=== PATIENT | male | born 1930 | race Caucasian/White ===

== ENCOUNTER 2016-11-06 22:53 | Emergency (ER) | payer OTHER ==
[2016-11-06 23:35] LABS: HEMATOCRIT 35.8 % (37.9-51.0); HEMOGLOBIN 12.1 g/dL (13.5-17.0); HGB HCT DIFFERENCE 0.5; MEAN CORPUSCULAR HEMOGLOBIN 34.9 pg (27.0-33.4); MEAN CORPUSCULAR HGB CONC 33.9 g/dL (32.0-36.0); MEAN CORPUSCULAR VOLUME 103 fl (80-97); RED BLOOD COUNT 3.48 10^6/uL (4.35-5.55); WHITE BLOOD COUNT 11.4 10^3/uL (4.0-10.5)
[2016-11-06 23:45] LABS: ALANINE AMINOTRANSFERASE 21 U/L (21-72); ALKALINE PHOSPHATASE 64 U/L (38-126); ANION GAP 14 (5-19); ASPARTATE AMINO TRANSFERASE 15 U/L (17-59); BILIRUBIN,TOTAL 0.4 mg/dL (0.2-1.3); BLOOD UREA NITROGEN 25 mg/dL (7-20); CALCIUM 9.4 mg/dL (8.4-10.2); CARBON DIOXIDE 26 mmol/L (22-30); CHLORIDE 103 mmol/L (98-107); CREATININE RESULT 1.58 mg/dL (0.52-1.25); GLUCOSE 155 mg/dL (75-110); POTASSIUM 4.5 mmol/L (3.6-5.0); SODIUM 142.6 mmol/L (137-145); TOTAL PROTEIN 6.6 g/dL (6.3-8.2)
[2016-11-06 23:49] LABS: BAND NEUTROPHILS % (MANUAL) 1 % (3-5); BASOPHILS % (MANUAL) 1 % (0-2); EOSINOPHILS % (MANUAL) 0 % (0-6); LYMPHOCYTES % (MANUAL) 3 % (13-45); TOTAL CELLS COUNTED 100
[2016-11-06 23:50] LABS: ANISOCYTOSIS 1+
[2016-11-07] MEDS ORDERED: NORMAL SALINE 1000 ML 500 ML IV ONE (00:30)
--- NOTE | 2016-11-07 00:33 | ER Document Report ---
ED General - General Chief Complaint: Near Syncope Stated Complaint: FALL, WEAKNESS Notes: Patient is an 86-year-old male with past medical history of hypertension and frequent falls who presents after being generally weak and having to be helped to the ground when attempting to stand up after going to the bathroom. Family could not get him off the floor so EMS was contacted. Patient states that he has had a dry, nonproductive cough for the past several days. His has the same symptoms. Patient states that he does not eat or drink much today and sat in his chair most of the day. When he got up out of the chair to try to ambulatory to the restroom, states he felt very weak diffusely but was able to the bathroom. However when he went to stand up again after urinating, he was unable to completely stand up and did fall to the ground with the assistance of his . He did not sustain any injury while doing this. He denies any symptoms at time of my evaluation. No chest pain, shortness of breath, focal weakness or numbness. He has a history of support episodes in the past. He has not seen his primary care doctor regarding today's concerns. Nothing is noted to improve or worsen his symptoms. - Related Data Allergies/Adverse Reactions: acetaminophen [From Percocet] Allergy (Verified 07/06/13 09:50) bumetanide [From Bumex] Allergy (Verified 10/18/10 11:02) ivermectin [Ivermectin] Allergy (Verified 07/06/13 09:50) oxycodone HCl [From Percocet] Allergy (Verified 07/06/13 09:50) valsartan [From Diovan] Allergy (Verified 10/18/10 11:02) Past Medical History - General Information source: Patient - Social History Smoking Status: Former Smoker Frequency of alcohol use: None Drug Abuse: None Lives with: Spouse/Significant other Family History: Reviewed & Not Pertinent - Past Medical History Cardiac Medical History: Reports: Hx Atrial Fibrillation, Hx Hypercholesterolemia Pulmonary Medical History: Reports: Hx COPD, Hx Pneumonia Endocrine Medical History: Reports: Hx Diabetes Mellitus Type 2 Malignancy Medical History: Reports Hx Skin Cancer GI Medical History: Reports: Hx Gastroesophageal Reflux Disease Musculoskeltal Medical History: Reports Hx Arthritis Skin Medical History: Denies Hx MRSA Psychiatric Medical History: Reports: Hx Depression Infectious Medical History: Reports: Hx MRSA - Pneumonia in 2010 Past Surgical History: Reports: Hx Orthopedic Surgery - Left knee prosthesis 1995, right knee prosthesis x2 since 1999. Cataract - Immunizations Hx Pneumococcal Vaccination: 08/19/05 Review of Systems - Review of Systems Notes: Constitutional: Negative for fever. HENT: Negative for sore throat. Eyes: Negative for visual changes. Cardiovascular: Negative for chest pain. Respiratory: Negative for shortness of breath. Gastrointestinal: Negative for abdominal pain, vomiting or diarrhea. Genitourinary: Negative for dysuria. Musculoskeletal: Negative for back pain. Skin: Negative for rash. Neurological: Negative for headaches, weakness or numbness. 10 point ROS negative except as marked above and in HPI. Physical Exam - Vital signs Vitals: Resp Pulse Ox 19 94 11/06/16 23:14 11/06/16 23:14 Interpretation: Normal Notes: PHYSICAL EXAMINATION: GENERAL: Well-appearing, well-nourished and in no acute distress. HEAD: Atraumatic, normocephalic. EYES: Pupils equal round and reactive to light, extraocular movements intact, sclera anicteric, conjunctiva are normal. ENT: nares patent, oropharynx clear without exudates. Moderately dry mucous membranes. NECK: Normal range of motion, supple without lymphadenopathy LUNGS: Breath sounds clear to auscultation bilaterally and equal. No wheezes rales or rhonchi. HEART: Regular tachycardia without murmurs ABDOMEN: Soft, nontender, normoactive bowel sounds. No guarding, no rebound. No masses appreciated. EXTREMITIES: Normal range of motion, no pitting or edema. No cyanosis. NEUROLOGICAL: No focal neurological deficits. Moves all extremities spontaneously and on command. PSYCH: Normal mood, normal affect. SKIN: Warm, Dry, normal turgor, no rashes or lesions noted. Course - Re-evaluation Re-evalutation: 11/07/16 00:32 Presentation and an overall well-appearing patient in no acute distress who complains of generalized weakness that did cause a fall without associated trauma just prior to arrival. Specifically patient did not hit his head or neck during the fall was gently helped to the ground. At time of evaluation, patient's vitals are within normal limits with exception of mild tachycardia rate 103. They are denying any additional acute complaints. Physical examination without focal findings. No neurologic deficits. They deny any chest pain, shortness of breath, nausea, vomiting, or diarrhea. No dysuria or fever. Basic laboratories are unremarkable (anemia improved from prior, cr at baseline). Low clinical suspicion for ACS, occult pneumonia, acute intra- abdominal pathology, stroke, or transient ischemic attack based on clinical history, examination, and laboratories. They have tolerated oral intake without difficulty. I have discussed the importance of close outpatient follow- up as well as the need to return to emergency room immediately should they have any new or worsening symptoms. The patient and surrogate's are in agreement with this plan and verbalized indications for return to emergency department. - Vital Signs Vital signs: Temp Pulse Resp BP Pulse Ox 100.3 F 16 126/67 H 93 11/06/16 23:19 11/07/16 01:01 11/07/16 01:01 11/07/16 01:01 - Laboratory Result Diagrams: 11/06/16 23:17 11/06/16 23:17 Laboratory results interpreted by me: 11/06/16 11/06/16 11/06/16 23:17 23:17 23:17 WBC 11.4 H RBC 3.48 L Hgb 12.1 L Hct 35.8 L MCV 103 H MCH 34.9 H RDW 16.0 H Seg Neuts % (Manual) 84 H Band Neutrophils % 1 L Lymphocytes % (Manual) 3 L Abs Neuts (Manual) 9.7 H Abs Lymphs (Manual) 0.3 L BUN 25 H Creatinine 1.58 H Est GFR ( Amer) 51 L Est GFR (Non-Af Amer) 42 L Glucose 155 H Lactic Acid 2.3 H AST 15 L - Diagnostic Test Radiology reviewed: Image reviewed, Reports reviewed - EKG Interpretation by Me Additional EKG results interpreted by me: 11/07/16 00:35 Normal sinus rhythm. Rate 95. No ST elevations or depressions. Right bundle branch block. Left anterior fascicle block. Unchanged from prior. QTC is 478. Discharge - Discharge Clinical Impression: Generalized weakness Fall Qualifiers: Encounter type: initial encounter Qualified Code(s): W19.XXXA - Unspecified fall, initial encounter Condition: Good Disposition: HOME, SELF-CARE Additional Instructions: Your laboratories today here are at your baseline. Your chest x-ray is normal and does not show pneumonia. Please follow-up with your primary care doctor regarding today's episode within the next 1-2 days. Please return to the emergency room immediately if you experience any concerning symptoms including high fevers, severe headache, chest pain, difficulty breathing, abdominal pain, slurred speech, numbness or weakness in your arms or legs, or any other symptom that concerns you. Referrals: SHAILA LOPEZ MD [Primary Care Provider] - Follow up tomorrow
[2016-11-07 01:18] VITALS: BP 126/67
--- NOTE | 2016-11-07 08:30 | EKG REPORT ---
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
== END 2016-11-07 01:57 | disposition home or self-care (01) ==
LOC: ER 22:53
DX: R53.1 Weakness (principal); R55 Syncope and collapse; W19.XXXA Unspecified fall, initial encounter; I10 Essential (primary) hypertension; Z91.81 History of falling; Z87.891 Personal history of nicotine dependence
CPT/HCPCS: 93005; 99284; 36415; 87040; 85025; 85610; 80053; 83605; 71010; 93010; J7030

== ENCOUNTER 2016-11-07 04:13 | Inpatient (IN) | payer OTHER, MEDICARE ==
[2016-11-07] MEDS ORDERED: LIDOCAINE 1%/EPINEPHRINE INJ 20 ML VIAL INJ ONE (05:17)
--- NOTE | 2016-11-07 06:33 | ER Document Report ---
ED General - General Chief Complaint: Fall Injury Stated Complaint: FALL,HEAD LACERATION Mode of Arrival: Medic Information source: Patient, H Records Notes: 86 yr old male presents with complaints of weakness since yesterday. Patient notes that he was here earlier last night, after being unable to stand from a sitting position she is normally able to do, patient felt lightheaded and weak, his attempted to help him move at which point he fell. Patient had difficulty standing up Patient returns today after another fall, stating he was weak again with his walker TRAVEL OUTSIDE OF THE [place] IN LAST 30 DAYS: No - HPI Onset: Just prior to arrival Onset/Duration: Sudden Quality of pain: No pain Severity: Mild Pain Level: Denies Associated symptoms: Weakness Exacerbated by: Denies Relieved by: Denies Similar symptoms previously: Yes Recently seen / treated by doctor: Yes - Related Data Allergies/Adverse Reactions: acetaminophen [From Percocet] Allergy (Verified 07/06/13 09:50) bumetanide [From Bumex] Allergy (Verified 10/18/10 11:02) ivermectin [Ivermectin] Allergy (Verified 07/06/13 09:50) oxycodone HCl [From Percocet] Allergy (Verified 07/06/13 09:50) valsartan [From Diovan] Allergy (Verified 10/18/10 11:02) Home Medications: Current Home Medications Bupropion HCl [Wellbutrin Xl 300mg 24hr Tablet] 300 mg PO DAILY 11/07/16 [ History] Calcium Carbonate/Vitamin D3 [Calcium 500 mg Chewable Tablet] 1 tab PO BID 11/07 [History] Colchicine [Mitigare] 0.6 mg PO DAILY 11/07/16 [History] Gabapentin [Gabapentin] 100 mg PO QPM 11/07/16 [History] Metformin HCl [Metformin HCl] 1,000 mg PO Q12H 11/07/16 [History] Psyllium Husk (with Sugar) [Metamucil Packet] 3.4 gm PO DAILY 11/07/16 [History] Past Medical History - Social History Smoking Status: Never Smoker Cigarette use (# per day): No Chew tobacco use (# tins/day): No Smoking Education Provided: No Frequency of alcohol use: None Drug Abuse: None Family History: Reviewed & Not Pertinent Patient has suicidal ideation: No Patient has homicidal ideation: No - Past Medical History Cardiac Medical History: Reports: Hx Atrial Fibrillation, Hx Hypercholesterolemia Pulmonary Medical History: Reports: Hx COPD, Hx Pneumonia Endocrine Medical History: Reports: Hx Diabetes Mellitus Type 2 Renal/ Medical History: Denies: Hx Peritoneal Dialysis Malignancy Medical History: Reports Hx Skin Cancer GI Medical History: Reports: Hx Gastroesophageal Reflux Disease Musculoskeltal Medical History: Reports Hx Arthritis Skin Medical History: Denies Hx MRSA Psychiatric Medical History: Reports: Hx Depression Infectious Medical History: Reports: Hx MRSA - Pneumonia in 2010 Past Surgical History: Reports: Hx Orthopedic Surgery - Left knee prosthesis 1995, right knee prosthesis x2 since 1999. Cataract - Immunizations Hx Pneumococcal Vaccination: 08/19/05 Review of Systems - Review of Systems Notes: REVIEW OF SYSTEMS: CONSTITUTIONAL : Denies fever, chills, or sweats. Denies recent illness. EENT: Denies eye, ear, throat, or mouth pain or symptoms. Denies nasal or sinus congestion or discharge. Denies throat, tongue, or mouth swelling or difficulty swallowing. CARDIOVASCULAR: Denies chest pain. Denies palpitations or racing or irregular heart beat. Denies ankle edema. RESPIRATORY: Denies cough, cold, or chest congestion. Denies shortness of breath, difficulty breathing, or wheezing. GASTROINTESTINAL: Denies abdominal pain or distention. Denies nausea, vomiting , or diarrhea. Denies blood in vomitus, stools, or per rectum. Denies black, tarry stools. Denies constipation. GENITOURINARY: Denies difficulty urinating, painful urination, burning, frequency, blood in urine, or discharge. MUSCULOSKELETAL: Denies back or neck pain or stiffness. Denies joint pain or swelling. SKIN: Admits to laceration scalp HEMATOLOGIC : Denies easy bruising or bleeding. LYMPHATIC: Denies swollen, enlarged glands. NEUROLOGICAL: Admits to weakness PSYCHIATRIC: Denies anxiety or stress. Denies depression, suicidal ideation, or homicidal ideation. ALL OTHER SYSTEMS REVIEWED AND NEGATIVE. Dictation was performed using [employer] voice recognition software PHYSICAL EXAMINATION: GENERAL: Well-appearing, well-nourished and in no acute distress. HEAD: Left occipital laceration noted EYES: Pupils equal round and reactive to light, extraocular movements intact, sclera anicteric, conjunctiva are normal. ENT: Nares patent, oropharynx clear without exudates. Moist mucous membranes. NECK: Normal range of motion, supple without lymphadenopathy LUNGS: Breath sounds clear to auscultation bilaterally and equal. No wheezes rales or rhonchi. HEART: Regular rate and rhythm without murmurs ABDOMEN: Soft, nontender, nondistended abdomen. No guarding, no rebound. No masses appreciated. Musculoskeletal: Normal range of motion, no pitting or edema. No cyanosis. NEUROLOGICAL: Cranial nerves grossly intact. Normal speech, generalized weakness PSYCH: Normal mood, normal affect. SKIN: Y-shaped laceration measuring 2 cm left scalp Physical Exam - Vital signs Vitals: Temp Pulse Resp BP Pulse Ox 99.4 F 97 18 122/96 H 96 11/07/16 04:21 11/07/16 04:21 11/07/16 04:21 11/07/16 04:21 11/07/16 04:21 Course - Re-evaluation Re-evalutation: 11/07/16 06:36 On review of previous labs it is noted patient had an elevated lactic acidosis, given patient's weakness BP lab work has been ordered and I expect admission for the patient 11/07/16 08:22 dr Alva scott 11/07/16 08:53 Dr Tuttle will admit for tele obs - Vital Signs Vital signs: Temp Pulse Resp BP Pulse Ox 99.4 F 97 18 122/96 H 96 11/07/16 04:21 11/07/16 04:21 11/07/16 04:21 11/07/16 04:21 11/07/16 04:21 - Laboratory Result Diagrams: 11/07/16 06:40 11/07/16 06:40 Laboratory results interpreted by me: 11/07/16 11/07/16 11/07/16 06:40 06:40 07:03 WBC 11.2 H RBC 3.48 L Hgb 12.0 L Hct 35.5 L MCV 102 H MCH 34.3 H RDW 16.4 H Seg Neuts % (Manual) 87 H Lymphocytes % (Manual) 3 L Abs Neuts (Manual) 9.7 H Abs Lymphs (Manual) 0.3 L BUN 25 H Creatinine 1.44 H Est GFR ( Amer) 56 L Est GFR (Non-Af Amer) 47 L Glucose 124 H AST 15 L ALT 20 L Total Protein 6.1 L Urine Protein 30 H Urine Blood LARGE H Urine Ascorbic Acid 20 H - Diagnostic Test Radiology reviewed: Image reviewed, Reports reviewed - EKG Interpretation by Me EKG shows normal: Sinus rhythm, [place], Intervals, QRS Complexes Discharge - Discharge Clinical Impression: Generalized weakness Fall Qualifiers: Encounter type: initial encounter Qualified Code(s): W19.XXXA - Unspecified fall, initial encounter Condition: Stable Disposition: ADMITTED OBSERVATION Admitting Provider: Hospitalist Unit Admitted: Telemetry Referrals: SHAILA LOPEZ MD [Primary Care Provider] - Follow up as needed
[2016-11-07] MEDS ORDERED: NORMAL SALINE 1000 ML 1,000 ML IV ONE (06:35)
[2016-11-07 07:08] LABS: HEMATOCRIT 35.5 % (37.9-51.0); HGB HCT DIFFERENCE 0.5; MEAN CORPUSCULAR HEMOGLOBIN 34.3 pg (27.0-33.4); MEAN CORPUSCULAR HGB CONC 33.7 g/dL (32.0-36.0); MEAN CORPUSCULAR VOLUME 102 fl (80-97); RED BLOOD COUNT 3.48 10^6/uL (4.35-5.55); RED CELL DISTRIBUTION WIDTH 16.4 % (11.5-14.0); WHITE BLOOD COUNT 11.2 10^3/uL (4.0-10.5)
[2016-11-07 07:26] LABS: ALANINE AMINOTRANSFERASE 20 U/L (21-72); ALBUMIN 3.7 g/dL (3.5-5.0); ALKALINE PHOSPHATASE 62 U/L (38-126); ANION GAP 13 (5-19); ASPARTATE AMINO TRANSFERASE 15 U/L (17-59); BILIRUBIN,DIRECT 0.1 mg/dL (0.0-0.4); BILIRUBIN,TOTAL 0.7 mg/dL (0.2-1.3); BLOOD UREA NITROGEN 25 mg/dL (7-20); CALCIUM 8.8 mg/dL (8.4-10.2); CARBON DIOXIDE 25 mmol/L (22-30); CHLORIDE 104 mmol/L (98-107); CREATINE KINASE 142 U/L (55-170); CREATININE RESULT 1.44 mg/dL (0.52-1.25); GLUCOSE 124 mg/dL (75-110); POTASSIUM 4.4 mmol/L (3.6-5.0); SODIUM 141.8 mmol/L (137-145); TOTAL PROTEIN 6.1 g/dL (6.3-8.2)
[2016-11-07 07:37] LABS: BASOPHILS % (MANUAL) 0 % (0-2); CREATINE KINASE MB 2.15 ng/mL (<4.55); EOSINOPHILS % (MANUAL) 1 % (0-6); LYMPHOCYTES % (MANUAL) 3 % (13-45); TOTAL CELLS COUNTED 100; TROPONIN I 0.032 ng/mL
[2016-11-07 07:38] LABS: ANISOCYTOSIS 1+; OVALOCYTES 1+; POIKILOCYTOSIS 1+; POLYCHROMASIA SLIGHT; SCHISTOCYTES SLIGHT
[2016-11-07 08:19] LABS: APPEARANCE,URINE CLEAR; BILIRUBIN,URINE NEGATIVE (NEGATIVE); GLUCOSE, URINE NEGATIVE (NEGATIVE); KETONES,URINE NEGATIVE (NEGATIVE); LEUKOCYTE ESTERASE,URINE NEGATIVE (NEGATIVE); NITRITE,URINE NEGATIVE (NEGATIVE); PROTEIN,URINE 30 mg/dL (NEGATIVE); URINE SPECIFIC GRAVITY 1.019; UROBILINOGEN,URINE NEGATIVE mg/dL (<2.0)
[2016-11-07] MEDS ORDERED: CEFTRIAXONE 1 GM/D5W RTU 50 ML IV ONE (08:53)
[2016-11-07] MEDS ORDERED: ONDANSETRON HCL INJ/PF 4 MG/2 ML SDV IV PRN (09:14)
[2016-11-07] MEDS ORDERED: DEXTROSE 50%-WATER 25 GM/50 ML DISP.SYRIN IV PRN ×2 (09:17)
[2016-11-07] MEDS ORDERED: DEXTROSE 40% GEL 15 GM TUBE PO PRN ×2 (09:17)
[2016-11-07] MEDS ORDERED: GLUCAGON,HUMAN RECOMB 1 MG INJ IM PRN (09:17)
[2016-11-07] MEDS ORDERED: INSULIN LISPRO 100 UNIT/ML 3 ML VIAL SUBCUT PRN (09:17)
[2016-11-07] MEDS ORDERED: CALCIUM CARBONATE PO SCH (10:00)
[2016-11-07] MEDS ORDERED: COLCHICINE 0.6 MG PO SCH (10:00)
[2016-11-07] MEDS ORDERED: [UNRECOGNIZED DRUG - OTHER] PO SCH (10:00)
[2016-11-07] MEDS ORDERED: VITAMIN D3 PO SCH (10:00)
[2016-11-07] MEDS ORDERED: (PENDING PHARMACY ID) (Psyllium Husk (With Sugar) [Metamucil Packet] 3.4 GM) PO SCH (10:00)
[2016-11-07 10:55] LABS: FREE T3 3.5 pg/mL (2.77-5.27)
[2016-11-07 11:09] LABS: THYROID STIMULATING HORMONE 1.33 uIU/mL (0.47-4.68)
[2016-11-07] MEDS: BUPROPION HCL 75 MG TABLET PO SCH ×2 (11:10→21:13)
[2016-11-07] MEDS: CYANOCOBALAMIN (VITAMIN B-12) 1,000 MCG TABLET PO SCH (11:10)
[2016-11-07] MEDS: PREDNISONE 10 MG TABLET PO SCH (11:11)
[2016-11-07] MEDS: COLCHICINE 0.6 MG TABLET PO SCH (11:11)
[2016-11-07] MEDS: PSYLLIUM SEED-SF 5.85 GM PACKET PO SCH ×2 (11:12)
[2016-11-07] MEDS: RIVAROXABAN 15 MG TABLET PO SCH (11:15)
[2016-11-07] MEDS: CALCIUM CARBONATE 250 MG/VITAMIN D3 125 UNIT TABLET PO SCH (11:15)
[2016-11-07] MEDS ORDERED: OSELTAMIVIR PHOSPHATE 75 MG CAPSULE PO ONE (15:00)
--- NOTE | 2016-11-07 17:01 | PDOC H&P ---
History of Present Illness Admission Date/PCP: 11/07/16 09:14 SHAILA LOPEZ MD Patient complains of: Fever History of Present Illness: MATTEO RAIN is a 86 year old male with past medical history of myasthenia gravis on immunosuppressive medications, CK 83, obstructive sleep apnea on CPAP , hypertension, A. fib presents to the emergency department with 2 day history of cough, sore throat, generalized weakness, fevers. He was treated and released from the emergency department yesterday for similar symptoms with no specific diagnosis. Past Medical History Cardiac Medical History: Reports: Atrial Fibrillation, Hyperlipidema Pulmonary Medical History: Reports: Chronic Obstructive Pulmonary Disease (COPD) , Pneumonia, Sleep Apnea Neurological Medical History: Reports: Other - Myasthenia gravis Endocrine Medical History: Reports: Diabetes Mellitus Type 2 Malignancy Medical History: Reports: Skin Cancer GI Medical History: Reports: Gastroesophageal Reflux Disease Musculoskeltal Medical History: Reports: Arthritis Psychiatric Medical History: Reports: Depression Infectious Medical History: Reports: Methicillin-Resistant Staph Aureus - Pneumonia in 2010 Past Surgical History Past Surgical History: Reports: Orthopedic Surgery - Left knee prosthesis 1995, right knee prosthesis x2 since 1999. Cataract Social History Smoking Status: Never Smoker Frequency of Alcohol Use: None Hx Recreational Drug Use: No Hx Prescription Drug Abuse: No - Advance Directive Resuscitation Status: Full Code Family History Family History: Other - both parents of "old age" Parental Family History Reviewed: Yes Children Family History Reviewed: Yes Sibling(s) Family History Reviewed.: Yes Medication/Allergy Home Medications: Antiox#10/Om3/Dha/Epa/Lut/Zeax [I-Caps with Lutein-[place] 3 Sfg] 1 cap PO BID Azathioprine [Imuran 50 mg Tablet] 150 mg PO DAILY 07/06/13 Biotin [Nail-Ex 2500 mcg Tablet] 1 tab PO DAILY 07/06/13 Cyanocobalamin (Vitamin B-12) [Vitamin B-12] 1,000 mcg PO DAILY 07/06/13 Prednisone 15 mg PO Q2D 07/06/13 Rivaroxaban [Xarelto 15 mg Tablet] 15 mg PO DAILY 07/06/13 Bupropion HCl [Wellbutrin Xl 300mg 24hr Tablet] 300 mg PO DAILY 11/07/16 Calcium Carbonate/Vitamin D3 [Calcium 500 mg Chewable Tablet] 1 tab PO BID 11/07 Colchicine [Mitigare] 0.6 mg PO DAILY 11/07/16 Gabapentin [Gabapentin] 100 mg PO QPM 11/07/16 Metformin HCl [Metformin HCl] 1,000 mg PO Q12H 11/07/16 Psyllium Husk (with Sugar) [Metamucil Packet] 3.4 gm PO DAILY 11/07/16 Allergies/Adverse Reactions: acetaminophen [From Percocet] Allergy (Verified 07/06/13 09:50) bumetanide [From Bumex] Allergy (Verified 10/18/10 11:02) ivermectin [Ivermectin] Allergy (Verified 07/06/13 09:50) oxycodone HCl [From Percocet] Allergy (Verified 07/06/13 09:50) valsartan [From Diovan] Allergy (Verified 10/18/10 11:02) Review of Systems Constitutional: PRESENT: fatigue, fever(s), weakness. ABSENT: chills, headache( s), weight gain, weight loss Eyes: ABSENT: visual disturbances Ears: ABSENT: hearing changes Nose, Mouth, and Throat: PRESENT: sore throat Cardiovascular: ABSENT: chest pain, dyspnea on exertion, edema, orthropnea, palpitations Respiratory: PRESENT: cough. ABSENT: hemoptysis Gastrointestinal: ABSENT: abdominal pain, constipation, diarrhea, hematemesis, hematochezia, nausea, vomiting Genitourinary: PRESENT: difficulty urinating, other - Urinary frequency. ABSENT : dysuria, hematuria Musculoskeletal: ABSENT: joint swelling Integumentary: ABSENT: rash, wounds Neurological: ABSENT: abnormal gait, abnormal speech, confusion, dizziness, focal weakness, syncope Psychiatric: ABSENT: anxiety, depression, homidical ideation, suicidal ideation Endocrine: ABSENT: cold intolerance, heat intolerance, polydipsia, polyuria Hematologic/Lymphatic: ABSENT: easy bleeding, easy bruising Physical Exam Vital Signs: Temp Pulse Resp BP Pulse Ox 99.4 F 97 18 122/96 H 96 11/07/16 04:21 11/07/16 04:21 11/07/16 04:21 11/07/16 04:21 11/07/16 04:21 PHYSICAL EXAM: GENERAL: Appears well, no acute distress HEENT: Normocephalic, no scleral icterus, conjunctiva clear, EOEM intact, PERRLA , moist mucous membranes, erythema of posterior oropharynx with no exudate NECK: trachea midline, no thyromegally RESPIRATORY: Clear to auscultation, no wheezes/rhonchi CARDIAC: Regular rate and rhythm, no murmur/buck/rub ABDOMEN: Soft, no distension, no tenderness, no guarding, normal bowel sounds, negative Nayak sign RECTAL: deferred : deferred EXTREMITIES: No edema, cyanosis, clubbing MUSCULOSKELETAL: No joint swelling or deformity VASCULAR: normal peripheral pulses NEUROLOGIC: Alert, oriented to person/place/time, normal speech, cranial nerves grossly intact, 5/5 strength in all extremities, tactile sensation intact in all extremities SKIN: No rash, no wounds, no worrisome skin lesions PSYCHIATRIC: Normal mood, normal affect Results Laboratory Results: Labs- All tests 24 hr 11/07/16 11/07/16 11/07/16 06:40 06:40 06:40 WBC 11.2 H RBC 3.48 L Hgb 12.0 L Hct 35.5 L MCV 102 H MCH 34.3 H MCHC 33.7 RDW 16.4 H Plt Count 160 Total Counted 100 Seg Neutrophils % Not Reportable Seg Neuts % (Manual) 87 H Lymphocytes % Not Reportable Lymphocytes % (Manual) 3 L Monocytes % Not Reportable Monocytes % (Manual) 9 Eosinophils % Not Reportable Eosinophils % (Manual) 1 Basophils % Not Reportable Basophils % (Manual) 0 Absolute Neutrophils Not Reportable Abs Neuts (Manual) 9.7 H Absolute Lymphocytes Not Reportable Abs Lymphs (Manual) 0.3 L Absolute Monocytes Not Reportable Abs Monocytes (Manual) 1.0 Absolute Eosinophils Not Reportable Absolute Eos (Manual) 0.1 Absolute Basophils Not Reportable Abs Basophils (Manual) 0.0 Platelet Comment ADEQUATE Polychromasia SLIGHT Poikilocytosis 1+ Anisocytosis 1+ Macrocytosis 1+ Ovalocytes 1+ Schistocytes SLIGHT Sodium 141.8 Potassium 4.4 Chloride 104 Carbon Dioxide 25 Anion Gap 13 BUN 25 H Creatinine 1.44 H Est GFR ( Amer) 56 L Est GFR (Non-Af Amer) 47 L Glucose 124 H Lactic Acid Calcium 8.8 Total Bilirubin 0.7 Direct Bilirubin 0.1 Indirect Bilirubin Not Reportable Neonat Total Bilirubin Not Reportable AST 15 L ALT 20 L Alkaline Phosphatase 62 Creatine Kinase 142 CK-MB (CK-2) 2.15 Troponin I 0.032 Total Protein 6.1 L Albumin 3.7 Prostate Specific Ag TSH Free T4 Free T3 pg/mL Urine Color Urine Appearance Urine pH Ur Specific [place] Urine Protein Urine Glucose (UA) Urine Ketones Urine Blood Urine Nitrite Urine Bilirubin Urine Urobilinogen Ur Leukocyte Esterase Urine WBC (Auto) Urine RBC (Auto) Urine Mucus (Auto) Urine Ascorbic Acid Influenza A (Rapid) Influenza B (Rapid) Group A Strep Rapid 11/07/16 11/07/16 11/07/16 06:40 06:40 06:40 WBC RBC Hgb Hct MCV MCH MCHC RDW Plt Count Total Counted Seg Neutrophils % Seg Neuts % (Manual) Lymphocytes % Lymphocytes % (Manual) Monocytes % Monocytes % (Manual) Eosinophils % Eosinophils % (Manual) Basophils % Basophils % (Manual) Absolute Neutrophils Abs Neuts (Manual) Absolute Lymphocytes Abs Lymphs (Manual) Absolute Monocytes Abs Monocytes (Manual) Absolute Eosinophils Absolute Eos (Manual) Absolute Basophils Abs Basophils (Manual) Platelet Comment Polychromasia Poikilocytosis Anisocytosis Macrocytosis Ovalocytes Schistocytes Sodium Potassium Chloride Carbon Dioxide Anion Gap BUN Creatinine Est GFR ( Amer) Est GFR (Non-Af Amer) Glucose Lactic Acid 1.4 Calcium Total Bilirubin Direct Bilirubin Indirect Bilirubin Neonat Total Bilirubin AST ALT Alkaline Phosphatase Creatine Kinase CK-MB (CK-2) Troponin I Total Protein Albumin Prostate Specific Ag 6.810 H TSH 1.33 Free T4 0.72 L Free T3 pg/mL 3.50 Urine Color Urine Appearance Urine pH Ur Specific [place] Urine Protein Urine Glucose (UA) Urine Ketones Urine Blood Urine Nitrite Urine Bilirubin Urine Urobilinogen Ur Leukocyte Esterase Urine WBC (Auto) Urine RBC (Auto) Urine Mucus (Auto) Urine Ascorbic Acid Influenza A (Rapid) Influenza B (Rapid) Group A Strep Rapid 11/07/16 11/07/16 11/07/16 07:03 09:50 09:50 WBC RBC Hgb Hct MCV MCH MCHC RDW Plt Count Total Counted Seg Neutrophils % Seg Neuts % (Manual) Lymphocytes % Lymphocytes % (Manual) Monocytes % Monocytes % (Manual) Eosinophils % Eosinophils % (Manual) Basophils % Basophils % (Manual) Absolute Neutrophils Abs Neuts (Manual) Absolute Lymphocytes Abs Lymphs (Manual) Absolute Monocytes Abs Monocytes (Manual) Absolute Eosinophils Absolute Eos (Manual) Absolute Basophils Abs Basophils (Manual) Platelet Comment Polychromasia Poikilocytosis Anisocytosis Macrocytosis Ovalocytes Schistocytes Sodium Potassium Chloride Carbon Dioxide Anion Gap BUN Creatinine Est GFR ( Amer) Est GFR (Non-Af Amer) Glucose Lactic Acid Calcium Total Bilirubin Direct Bilirubin Indirect Bilirubin Neonat Total Bilirubin AST ALT Alkaline Phosphatase Creatine Kinase CK-MB (CK-2) Troponin I Total Protein Albumin Prostate Specific Ag TSH Free T4 Free T3 pg/mL Urine Color YELLOW Urine Appearance CLEAR Urine pH 5.0 Ur Specific [place] 1.019 Urine Protein 30 H Urine Glucose (UA) NEGATIVE Urine Ketones NEGATIVE Urine Blood LARGE H Urine Nitrite NEGATIVE Urine Bilirubin NEGATIVE Urine Urobilinogen NEGATIVE Ur Leukocyte Esterase NEGATIVE Urine WBC (Auto) 35 Urine RBC (Auto) 84 Urine Mucus (Auto) RARE Urine Ascorbic Acid 20 H Influenza A (Rapid) POSITIVE Influenza B (Rapid) NEGATIVE Group A Strep Rapid NEGATIVE Impressions: Head CT 11/07/16 05:08 IMPRESSION: CHRONIC CHANGES OF ATROPHY AND MICROVASCULAR ISCHEMIA. OLD LACUNAR INFARCTS. NO ACUTE PROCESS. Assessment & Plan - Diagnosis (1) Systemic inflammatory response syndrome (SIRS) Is this a current diagnosis for this admission?: YesPlan: Likely secondary to influenza and possible urinary tract infection. Elevated lactic acid level may be related to this, or maybe related to metformin administration in the setting of chronic kidney disease as well. (2) Influenza Is this a current diagnosis for this admission?: YesPlan: Start patient on Tamiflu. (3) Myasthenia gravis Is this a current diagnosis for this admission?: YesPlan: Hold Imuran for now secondary to infection. Continue prednisone. Patient is followed by a neurologist at [facility] by the name of Dr. Cherelle Orlando. (4) Abnormal urinalysis Is this a current diagnosis for this admission?: YesPlan: Continue Rocephin initiated in the emergency department pending urine culture. (5) Lactic acidosis Is this a current diagnosis for this admission?: YesPlan: Likely secondary to infection and metformin administration the setting of chronic kidney disease. (6) Hematuria Is this a current diagnosis for this admission?: YesPlan: PSA is slightly elevated and given patient's other urinary symptoms he would benefit from outpatient urology evaluation. Xarelto administration contributing as well. (7) A-fib Is this a current diagnosis for this admission?: YesPlan: Continue Xarelto for stroke prevention. Patient does not take any routine medication for heart rate control. Heart rate is stable at this time. (8) Diabetes Is this a current diagnosis for this admission?: YesPlan: Hold metformin secondary to lactic acidosis and chronic kidney disease. Sliding scale insulin coverage. (9) Chronic kidney disease, stage III (moderate) Is this a current diagnosis for this admission?: YesPlan: Hold metformin. (10) Generalized weakness Is this a current diagnosis for this admission?: YesPlan: Physical therapy to evaluate. - Time Time Spent: Greater than 70 Minutes Anticipated discharge: Home Within: within 48 hours
[2016-11-07] MEDS: GABAPENTIN 100 MG CAPSULE PO SCH (19:05)
[2016-11-08] MEDS ORDERED: OSELTAMIVIR PHOSPHATE 75 MG CAPSULE ONE (04:24)
[2016-11-08 05:06] LABS: HEMATOCRIT 34.2 % (37.9-51.0); HEMOGLOBIN 11.5 g/dL (13.5-17.0); HGB HCT DIFFERENCE 0.3; MEAN CORPUSCULAR HEMOGLOBIN 34.3 pg (27.0-33.4); MEAN CORPUSCULAR HGB CONC 33.7 g/dL (32.0-36.0); MEAN CORPUSCULAR VOLUME 102 fl (80-97); RED BLOOD COUNT 3.36 10^6/uL (4.35-5.55); RED CELL DISTRIBUTION WIDTH 15.9 % (11.5-14.0); WHITE BLOOD COUNT 12.4 10^3/uL (4.0-10.5)
[2016-11-08 05:13] LABS: ANION GAP 13 (5-19); BLOOD UREA NITROGEN 20 mg/dL (7-20); CALCIUM 8.9 mg/dL (8.4-10.2); CARBON DIOXIDE 22 mmol/L (22-30); CHLORIDE 106 mmol/L (98-107); CREATININE RESULT 1.36 mg/dL (0.52-1.25); GLUCOSE 104 mg/dL (75-110); MAGNESIUM 1.8 mg/dL (1.6-2.3); POTASSIUM 4.1 mmol/L (3.6-5.0); SODIUM 141.1 mmol/L (137-145)
[2016-11-08] MEDS: BENZOCAINE/MENTHOL SORE THROAT LOZENGE BUCCAL PRN ×2 (05:17→10:34)
[2016-11-08] MEDS: OSELTAMIVIR PHOSPHATE 75 MG CAPSULE PO SCH ×2 (05:17→18:54)
[2016-11-08 06:32] LABS: BASOPHILS % (MANUAL) 0 % (0-2); EOSINOPHILS % (MANUAL) 0 % (0-6); LYMPHOCYTES % (MANUAL) 6 % (13-45); TOTAL CELLS COUNTED 100
[2016-11-08 06:33] LABS: ANISOCYTOSIS SLIGHT; OVALOCYTES SLIGHT; TOXIC GRANULATION SLIGHT
[2016-11-08] MEDS ORDERED: CEFTRIAXONE 1 GM/D5W RTU 1 GM/50 ML RTUPB IV SCH (08:00)
[2016-11-08] MEDS: PSYLLIUM SEED-SF 5.85 GM PACKET PO SCH ×2 (10:06)
[2016-11-08] MEDS: CALCIUM CARBONATE 250 MG/VITAMIN D3 125 UNIT TABLET PO SCH (10:06)
[2016-11-08] MEDS: COLCHICINE 0.6 MG TABLET PO SCH (10:07)
[2016-11-08] MEDS: BUPROPION HCL 75 MG TABLET PO SCH ×2 (10:08→22:02)
[2016-11-08] MEDS: PREDNISONE 10 MG TABLET PO SCH (10:08)
[2016-11-08] MEDS: CYANOCOBALAMIN (VITAMIN B-12) 1,000 MCG TABLET PO SCH (10:08)
[2016-11-08] MEDS: RIVAROXABAN 15 MG TABLET PO SCH (10:09)
--- NOTE | 2016-11-08 11:55 | PDOC PROGRESS REPORT ---
Subjective Progress Note for:: 11/08/16 Subjective:: Patient feels generally worse today. He's had increased productive cough and shortness of breath. Patient denies chills, headache, new focal weakness, chest pain, abdominal pain, nausea, vomiting, diarrhea, constipation. Physical Exam Vital Signs: Temp Pulse Resp BP Pulse Ox 99.9 F 67 18 169/76 H 94 11/08/16 07:20 11/08/16 07:20 11/08/16 07:20 11/08/16 07:20 11/08/16 07:20 Intake & Output 11/07/16 11/08/16 11/09/16 06:59 06:59 06:59 Intake Total 455 Output Total 175 Balance 280 Weight 83.8 kg GENERAL: No acute distress, ill appearing HEENT: Conjunctiva clear, nonicteric, moist mucous membranes, no JVD, midline trachea RESPIRATORY: Bilateral rhonchi throughout all lung field CARDIAC: Regular rate and rhythm, no murmurs/gallops/rubs ABDOMEN: Soft, nondistended, nontender, positive bowel sounds, no rebound, no guarding EXTREMETIES: No edema, cyanosis, clubbing NEUROLOGIC: Alert, oriented to person/place/time, CN's grossly intact, no focal deficits SKIN: No rash, wounds PSYCH: Normal mood, normal affect Results Laboratory Results: 11/08/16 03:52 11/08/16 03:52 11/08/16 11/08/16 03:52 03:52 WBC 12.4 H RBC 3.36 L Hgb 11.5 L Hct 34.2 L MCV 102 H MCH 34.3 H MCHC 33.7 RDW 15.9 H Plt Count 133 L Seg Neutrophils % Not Reportable Lymphocytes % Not Reportable Monocytes % Not Reportable Eosinophils % Not Reportable Basophils % Not Reportable Absolute Neutrophils Not Reportable Absolute Lymphocytes Not Reportable Absolute Monocytes Not Reportable Absolute Eosinophils Not Reportable Absolute Basophils Not Reportable Sodium 141.1 Potassium 4.1 Chloride 106 Carbon Dioxide 22 Anion Gap 13 BUN 20 Creatinine 1.36 H Est GFR ( Amer) > 60 Est GFR (Non-Af Amer) 50 L Glucose 104 Calcium 8.9 Magnesium 1.8 Impressions: Head CT 11/07/16 05:08 IMPRESSION: CHRONIC CHANGES OF ATROPHY AND MICROVASCULAR ISCHEMIA. OLD LACUNAR INFARCTS. NO ACUTE PROCESS. Assessment & Plan - Diagnosis (1) Systemic inflammatory response syndrome (SIRS) Is this a current diagnosis for this admission?: YesPlan: Secondary to influenza and pneumonia. (2) Pneumonia Qualifiers: Pneumonia type: due to unspecified organism Laterality: bilateral Lung location: unspecified part of lung Qualified Code(s): J18.9 - Pneumonia, unspecified organism Is this a current diagnosis for this admission?: YesPlan: Patient has pneumonia based on clinical findings. I will repeat chest x-ray as this was not appreciated on initial chest x-ray from 11/06/2016. I think given the fact the patient is on immunosuppression and the fact that he has had clinical decompensation over the past 24 hours we should escalate his antibiotic coverage. I will discontinue IV Rocephin. Start IV cefepime, IV Levaquin, IV vancomycin. Check sputum culture. (3) Influenza Is this a current diagnosis for this admission?: YesPlan: Continue Tamiflu. (4) Myasthenia gravis Is this a current diagnosis for this admission?: YesPlan: Hold Imuran for now secondary to infection. Continue prednisone. Patient is followed by a neurologist at [facility] by the name of Dr. Cherelle Orlando. (5) Abnormal urinalysis Is this a current diagnosis for this admission?: YesPlan: Urine culture negative. (6) Lactic acidosis Is this a current diagnosis for this admission?: YesPlan: Likely secondary to metformin administration of the setting of chronic kidney disease, as well as acute infection. (7) Hematuria Is this a current diagnosis for this admission?: YesPlan: PSA is slightly elevated and given patient's other urinary symptoms he would benefit from outpatient urology evaluation. Xarelto administration contributing as well. (8) A-fib Is this a current diagnosis for this admission?: YesPlan: Continue Xarelto for stroke prevention. Patient does not take any routine medication for heart rate control. Heart rate is stable at this time. (9) Diabetes Is this a current diagnosis for this admission?: YesPlan: Hold metformin secondary to lactic acidosis and chronic kidney disease. Sliding scale insulin coverage. (10) Chronic kidney disease, stage III (moderate) Is this a current diagnosis for this admission?: YesPlan: Hold metformin. (11) Generalized weakness Is this a current diagnosis for this admission?: YesPlan: Physical therapy to evaluate. - Time Time Spent with patient: 35 or more minutes
[2016-11-08] MEDS ORDERED: CEFEPIME 1 GM/D5W RTU 50 ML IV SCH (12:00)
[2016-11-08] MEDS ORDERED: VANCOMYCIN HCL 0 MG in DEXTROSE 5%-WATER 250 ML IV NR (12:00)
[2016-11-08] MEDS ORDERED: GUAIFENESIN 600 MG TABLET.SA PO ONE (14:00)
[2016-11-08] MEDS ORDERED: LEVOFLOXACIN 750 MG/D5W RTU 750 MG/150 ML RTUPB IV ONE (14:00)
[2016-11-08] MEDS: CEFEPIME 1 GM/D5W RTU 1 GM/50 ML RTUPB IV SCH (15:37)
[2016-11-08] MEDS: GABAPENTIN 100 MG CAPSULE PO SCH (18:53)
[2016-11-08] MEDS: VANCOMYCIN HCL 1,250 MG in DEXTROSE 5%-WATER 250 ML IV SCH (18:54)
[2016-11-08] MEDS: GUAIFENESIN 600 MG TABLET.SA PO SCH (22:02)
[2016-11-09 05:30] LABS: HEMATOCRIT 37.5 % (37.9-51.0); HEMOGLOBIN 12.7 g/dL (13.5-17.0); HGB HCT DIFFERENCE 0.6; MEAN CORPUSCULAR HEMOGLOBIN 34.1 pg (27.0-33.4); MEAN CORPUSCULAR VOLUME 100 fl (80-97); RED BLOOD COUNT 3.74 10^6/uL (4.35-5.55); RED CELL DISTRIBUTION WIDTH 15.7 % (11.5-14.0); WHITE BLOOD COUNT 11.5 10^3/uL (4.0-10.5)
[2016-11-09 05:34] LABS: ANION GAP 13 (5-19); BLOOD UREA NITROGEN 26 mg/dL (7-20); CALCIUM 9.3 mg/dL (8.4-10.2); CARBON DIOXIDE 22 mmol/L (22-30); CHLORIDE 101 mmol/L (98-107); CREATININE RESULT 1.43 mg/dL (0.52-1.25); GLUCOSE 131 mg/dL (75-110); POTASSIUM 4.9 mmol/L (3.6-5.0); SODIUM 136.3 mmol/L (137-145)
[2016-11-09] MEDS: OSELTAMIVIR PHOSPHATE 75 MG CAPSULE PO SCH ×2 (05:44→17:56)
[2016-11-09 06:04] LABS: BAND NEUTROPHILS % (MANUAL) 5 % (3-5); BASOPHILS % (MANUAL) 0 % (0-2); EOSINOPHILS % (MANUAL) 0 % (0-6); LYMPHOCYTES % (MANUAL) 5 % (13-45); TOTAL CELLS COUNTED 100
[2016-11-09 06:06] LABS: ANISOCYTOSIS SLIGHT; POLYCHROMASIA SLIGHT; TOXIC GRANULATION SLIGHT; TOXIC VACUOLATION PRESENT
[2016-11-09] MEDS: GUAIFENESIN 600 MG TABLET.SA PO SCH ×2 (09:59→21:44)
[2016-11-09] MEDS: PREDNISONE 10 MG TABLET PO SCH (09:59)
[2016-11-09] MEDS: COLCHICINE 0.6 MG TABLET PO SCH (09:59)
[2016-11-09] MEDS: CALCIUM CARBONATE 250 MG/VITAMIN D3 125 UNIT TABLET PO SCH (10:00)
[2016-11-09] MEDS: CYANOCOBALAMIN (VITAMIN B-12) 1,000 MCG TABLET PO SCH (10:00)
[2016-11-09] MEDS: BUPROPION HCL 75 MG TABLET PO SCH ×2 (10:01→21:45)
[2016-11-09] MEDS: RIVAROXABAN 15 MG TABLET PO SCH (10:02)
[2016-11-09] MEDS: PSYLLIUM SEED-SF 5.85 GM PACKET PO SCH ×2 (10:02)
[2016-11-09] MEDS: CEFEPIME 1 GM/D5W RTU 1 GM/50 ML RTUPB IV SCH (15:26)
[2016-11-09] MEDS: GABAPENTIN 100 MG CAPSULE PO SCH (17:56)
[2016-11-09] MEDS: VANCOMYCIN HCL 1,250 MG in DEXTROSE 5%-WATER 250 ML IV SCH (17:56)
--- NOTE | 2016-11-09 22:06 | PDOC PROGRESS REPORT ---
Subjective Progress Note for:: 11/09/16 Subjective:: Patient feels generally better today. Decreased shortness of breath. Sitting in bedside chair. Patient denies chills, headache, new focal weakness, chest pain, abdominal pain, nausea, vomiting, diarrhea, constipation. Physical Exam Vital Signs: Temp Pulse Resp BP Pulse Ox 97.7 F 91 18 111/59 L 98 11/09/16 20:09 11/09/16 20:09 11/09/16 20:09 11/09/16 20:09 11/09/16 20:09 Intake & Output 11/08/16 11/09/16 11/10/16 06:59 06:59 06:59 Intake Total 559 534 7524 Output Total 175 825 Balance 280 -252 2172 Weight 83.8 kg 82.1 kg GENERAL: No acute distress HEENT: Conjunctiva clear, nonicteric, moist mucous membranes, no JVD, midline trachea RESPIRATORY: Bilateral rhonchi throughout all lung field CARDIAC: Regular rate and rhythm, no murmurs/gallops/rubs ABDOMEN: Soft, nondistended, nontender, positive bowel sounds, no rebound, no guarding EXTREMETIES: No edema, cyanosis, clubbing NEUROLOGIC: Alert, oriented to person/place/time, CN's grossly intact, no focal deficits SKIN: No rash, wounds PSYCH: Normal mood, normal affect Results Laboratory Results: 11/09/16 04:14 11/09/16 04:14 11/09/16 11/09/16 04:14 04:14 WBC 11.5 H RBC 3.74 L Hgb 12.7 L Hct 37.5 L MCV 100 H MCH 34.1 H MCHC 34.0 RDW 15.7 H Plt Count 141 L Seg Neutrophils % Not Reportable Lymphocytes % Not Reportable Monocytes % Not Reportable Eosinophils % Not Reportable Basophils % Not Reportable Absolute Neutrophils Not Reportable Absolute Lymphocytes Not Reportable Absolute Monocytes Not Reportable Absolute Eosinophils Not Reportable Absolute Basophils Not Reportable Sodium 136.3 L Potassium 4.9 Chloride 101 Carbon Dioxide 22 Anion Gap 13 BUN 26 H Creatinine 1.43 H Est GFR ( Amer) 57 L Est GFR (Non-Af Amer) 47 L Glucose 131 H Calcium 9.3 11/07/16 09:45 Throat Throat Culture - Final NORMAL PORTER Impressions: Head CT 11/07/16 05:08 IMPRESSION: CHRONIC CHANGES OF ATROPHY AND MICROVASCULAR ISCHEMIA. OLD LACUNAR INFARCTS. NO ACUTE PROCESS. Chest X-Ray 11/08/16 11:47 IMPRESSION: Right perihilar infiltrate consistent with pneumonia. Assessment & Plan - Diagnosis (1) Systemic inflammatory response syndrome (SIRS) Is this a current diagnosis for this admission?: YesPlan: Secondary to influenza and pneumonia. (2) Pneumonia Qualifiers: Pneumonia type: due to unspecified organism Laterality: bilateral Lung location: unspecified part of lung Qualified Code(s): J18.9 - Pneumonia, unspecified organism Is this a current diagnosis for this admission?: YesPlan: Patient has right perihilar pneumonia. Continue IV cefepime, IV Levaquin, IV vancomycin pending sputum culture. BC growing Gram + cocci. (3) Influenza Is this a current diagnosis for this admission?: YesPlan: Continue Tamiflu. (4) Myasthenia gravis Is this a current diagnosis for this admission?: YesPlan: Hold Imuran for now secondary to infection. Continue prednisone. Patient is followed by a neurologist at [facility] by the name of Dr. Cherelle Orlando. (5) Abnormal urinalysis Is this a current diagnosis for this admission?: YesPlan: Urine culture negative. (6) Lactic acidosis Is this a current diagnosis for this admission?: YesPlan: Likely secondary to metformin administration of the setting of chronic kidney disease, as well as acute infection. (7) Hematuria Is this a current diagnosis for this admission?: YesPlan: PSA is slightly elevated and given patient's other urinary symptoms he would benefit from outpatient urology evaluation. Xarelto administration contributing as well. (8) A-fib Is this a current diagnosis for this admission?: YesPlan: Continue Xarelto for stroke prevention. Patient does not take any routine medication for heart rate control. Heart rate is stable at this time. (9) Diabetes Is this a current diagnosis for this admission?: YesPlan: Hold metformin secondary to lactic acidosis and chronic kidney disease. Sliding scale insulin coverage. (10) Chronic kidney disease, stage III (moderate) Is this a current diagnosis for this admission?: YesPlan: Hold metformin. (11) Generalized weakness Is this a current diagnosis for this admission?: YesPlan: Physical therapy to evaluate. - Time Time Spent with patient: 35 or more minutes Anticipated discharge: Home with Homehealth Within: within 72 hours
[2016-11-10] MEDS: OSELTAMIVIR PHOSPHATE 75 MG CAPSULE PO SCH ×2 (05:36→19:41)
[2016-11-10 06:56] LABS: ANION GAP 17 (5-19); BLOOD UREA NITROGEN 41 mg/dL (7-20); CALCIUM 9.2 mg/dL (8.4-10.2); CARBON DIOXIDE 22 mmol/L (22-30); CHLORIDE 102 mmol/L (98-107); CREATININE RESULT 1.79 mg/dL (0.52-1.25); GLUCOSE 118 mg/dL (75-110); SODIUM 140.6 mmol/L (137-145)
[2016-11-10 07:07] LABS: HEMATOCRIT 36.7 % (37.9-51.0); HEMOGLOBIN 12.4 g/dL (13.5-17.0); HGB HCT DIFFERENCE 0.5; MEAN CORPUSCULAR HGB CONC 33.7 g/dL (32.0-36.0); MEAN CORPUSCULAR VOLUME 101 fl (80-97); RED BLOOD COUNT 3.64 10^6/uL (4.35-5.55); WHITE BLOOD COUNT 11.1 10^3/uL (4.0-10.5)
[2016-11-10 07:31] LABS: BAND NEUTROPHILS % (MANUAL) 3 % (3-5); BASOPHILS % (MANUAL) 0 % (0-2); EOSINOPHILS % (MANUAL) 3 % (0-6); LYMPHOCYTES % (MANUAL) 8 % (13-45); TOTAL CELLS COUNTED 100
[2016-11-10 07:35] LABS: ANISOCYTOSIS 1+; OVALOCYTES 1+; POIKILOCYTOSIS 1+
[2016-11-10] MEDS ORDERED: LEVOFLOXACIN 750 MG/D5W RTU 750 MG/150 ML RTUPB IV SCH (10:00)
[2016-11-10] MEDS: RIVAROXABAN 15 MG TABLET PO SCH (10:38)
[2016-11-10] MEDS: PSYLLIUM SEED-SF 5.85 GM PACKET PO SCH ×2 (10:38)
[2016-11-10] MEDS: CALCIUM CARBONATE 250 MG/VITAMIN D3 125 UNIT TABLET PO SCH (10:41)
[2016-11-10] MEDS: PREDNISONE 10 MG TABLET PO SCH (10:41)
[2016-11-10] MEDS: CYANOCOBALAMIN (VITAMIN B-12) 1,000 MCG TABLET PO SCH (10:41)
[2016-11-10] MEDS: COLCHICINE 0.6 MG TABLET PO SCH (10:41)
[2016-11-10] MEDS: GUAIFENESIN 600 MG TABLET.SA PO SCH ×2 (10:42→22:21)
[2016-11-10] MEDS: BUPROPION HCL 75 MG TABLET PO SCH ×2 (10:42→22:21)
[2016-11-10] MEDS: CEFEPIME 1 GM/D5W RTU 1 GM/50 ML RTUPB IV SCH (15:19)
[2016-11-10] MEDS: VANCOMYCIN HCL 1,250 MG in DEXTROSE 5%-WATER 250 ML IV SCH (19:40)
[2016-11-10] MEDS: GABAPENTIN 100 MG CAPSULE PO SCH (19:41)
--- NOTE | 2016-11-10 19:49 | PDOC PROGRESS REPORT ---
Subjective Progress Note for:: 11/10/16 Subjective:: Overall he feels he has improved today. He no longer feels the severe malaise. He denies fever sweats or chills. However he is still producing purulent phlegm. Physical Exam Vital Signs: Temp Pulse Resp BP Pulse Ox 97.6 F 93 17 124/66 95 11/10/16 15:59 11/10/16 15:59 11/10/16 15:59 11/10/16 15:59 11/10/16 15:59 Intake & Output 11/09/16 11/10/16 11/11/16 06:59 06:59 06:59 Intake Total 573 2378 Output Total 825 350 Balance -252 8 Weight 82.1 kg 82.1 kg Additional comments: GENERAL: No acute distress HEENT: Conjunctiva clear, nonicteric, moist mucous membranes, no JVD, midline trachea RESPIRATORY: Bilateral rhonchi throughout all lung field CARDIAC: Regular rate and rhythm, no murmurs/gallops/rubs ABDOMEN: Soft, nondistended, nontender, positive bowel sounds, no rebound, no guarding EXTREMETIES: No edema, cyanosis, clubbing NEUROLOGIC: Alert, oriented to person/place/time, CN's grossly intact, no focal deficits SKIN: No rash, wounds PSYCH: Normal mood, normal affect Results Laboratory Results: 11/10/16 05:21 11/10/16 05:21 11/10/16 11/10/16 05:21 05:21 WBC 11.1 H RBC 3.64 L Hgb 12.4 L Hct 36.7 L MCV 101 H MCH 34.0 H MCHC 33.7 RDW 16.0 H Plt Count 146 L Seg Neutrophils % Not Reportable Lymphocytes % Not Reportable Monocytes % Not Reportable Eosinophils % Not Reportable Basophils % Not Reportable Absolute Neutrophils Not Reportable Absolute Lymphocytes Not Reportable Absolute Monocytes Not Reportable Absolute Eosinophils Not Reportable Absolute Basophils Not Reportable Sodium 140.6 Potassium 4.0 Chloride 102 Carbon Dioxide 22 Anion Gap 17 BUN 41 H Creatinine 1.79 H Est GFR ( Amer) 44 L Est GFR (Non-Af Amer) 36 L Glucose 118 H Calcium 9.2 Impressions: Head CT 11/07/16 05:08 IMPRESSION: CHRONIC CHANGES OF ATROPHY AND MICROVASCULAR ISCHEMIA. OLD LACUNAR INFARCTS. NO ACUTE PROCESS. Chest X-Ray 11/08/16 11:47 IMPRESSION: Right perihilar infiltrate consistent with pneumonia. Assessment & Plan - Diagnosis (1) Systemic inflammatory response syndrome (SIRS) Is this a current diagnosis for this admission?: YesPlan: The systemic nature of this illness has resolved. (2) Pneumonia Qualifiers: Pneumonia type: due to unspecified organism Laterality: bilateral Lung location: unspecified part of lung Qualified Code(s): J18.9 - Pneumonia, unspecified organism Is this a current diagnosis for this admission?: YesPlan: We'll continue current antibiotics. Of note, one of 2 blood cultures drawn on 11/07/2016 is growing a micrococcus species, likely a contaminant. (3) Influenza Is this a current diagnosis for this admission?: YesPlan: Continue Tamiflu. (4) Myasthenia gravis Is this a current diagnosis for this admission?: YesPlan: Holding Imuran while his pneumonia is under treatment. Continuing low dose prednisone. He follows with neurologist Dr. Cherelle Orlando at [facility]. (5) Lactic acidosis Is this a current diagnosis for this admission?: YesPlan: This is felt to be due to metformin which has been discontinued. (6) A-fib Is this a current diagnosis for this admission?: YesPlan: The rate has remained stable without specific Rx. He remains on Xarelto for stroke prevention. (7) Diabetes Is this a current diagnosis for this admission?: YesPlan: Continue monitoring and sliding scale coverage. (8) Chronic kidney disease, stage III (moderate) Is this a current diagnosis for this admission?: Yes (9) Generalized weakness Is this a current diagnosis for this admission?: YesPlan: PT eval/Rx.
[2016-11-11] MEDS: OSELTAMIVIR PHOSPHATE 75 MG CAPSULE PO SCH ×2 (06:37→18:05)
[2016-11-11] MEDS: PSYLLIUM SEED-SF 5.85 GM PACKET PO SCH ×2 (10:05)
[2016-11-11] MEDS: PREDNISONE 10 MG TABLET PO SCH (10:07)
[2016-11-11] MEDS: GUAIFENESIN 600 MG TABLET.SA PO SCH ×2 (10:08→22:49)
[2016-11-11] MEDS: CALCIUM CARBONATE 250 MG/VITAMIN D3 125 UNIT TABLET PO SCH (10:10)
[2016-11-11] MEDS: CYANOCOBALAMIN (VITAMIN B-12) 1,000 MCG TABLET PO SCH (10:11)
[2016-11-11] MEDS: COLCHICINE 0.6 MG TABLET PO SCH (10:11)
[2016-11-11] MEDS: RIVAROXABAN 15 MG TABLET PO SCH (10:12)
[2016-11-11] MEDS: BUPROPION HCL 75 MG TABLET PO SCH ×2 (10:12→22:49)
--- NOTE | 2016-11-11 13:17 | PDOC PROGRESS REPORT ---
Subjective Progress Note for:: 11/11/16 Subjective:: He continues to feel progressively better. He denies fever sweats or chills. He continues to produce purulent phlegm, but less so. Physical Exam Vital Signs: Temp Pulse Resp BP Pulse Ox 97.3 F 97 21 H 139/61 H 98 11/11/16 08:34 11/11/16 08:34 11/11/16 08:34 11/11/16 08:34 11/11/16 08:34 Intake & Output 11/10/16 11/11/16 11/12/16 06:59 06:59 06:59 Intake Total 2378 1210 Output Total 350 725 Balance 2027 485 Weight 82.1 kg 82.1 kg Additional comments: GENERAL: No acute distress HEENT: Conjunctiva clear, nonicteric, moist mucous membranes, no JVD, midline trachea RESPIRATORY: Bilateral rhonchi throughout all lung field CARDIAC: Regular rate and rhythm, no murmurs/gallops/rubs ABDOMEN: Soft, nondistended, nontender, positive bowel sounds, no rebound, no guarding EXTREMETIES: No edema, cyanosis, clubbing NEUROLOGIC: Alert, oriented to person/place/time, CN's grossly intact, no focal deficits SKIN: No rash, wounds PSYCH: Normal mood, normal affect Results Laboratory Results: 11/10/16 05:21 11/10/16 05:21 11/08/16 22:05 Sputum Gram Stain - Final 11/08/16 22:05 Sputum Sputum Culture - Final NORMAL PORTER Impressions: Head CT 11/07/16 05:08 IMPRESSION: CHRONIC CHANGES OF ATROPHY AND MICROVASCULAR ISCHEMIA. OLD LACUNAR INFARCTS. NO ACUTE PROCESS. Chest X-Ray 11/08/16 11:47 IMPRESSION: Right perihilar infiltrate consistent with pneumonia. Assessment & Plan - Diagnosis (1) Systemic inflammatory response syndrome (SIRS) Is this a current diagnosis for this admission?: YesPlan: Systemic symptoms have resolved. (2) Pneumonia Qualifiers: Pneumonia type: due to unspecified organism Laterality: bilateral Lung location: unspecified part of lung Qualified Code(s): J18.9 - Pneumonia, unspecified organism Is this a current diagnosis for this admission?: YesPlan: The patient feels better but is still producing significant to have purulent phlegm. Chest x-ray of 11/08/2016 showed the right perihilar infiltrate. The patient was immunocompromised by the Imuran and prednisone for his myasthenia gravis. Imuran is on hold for blood prednisone continues. White blood count is normal. We will plan to continue with the cefepime and levofloxacin intravenously for one more day. (3) Influenza Is this a current diagnosis for this admission?: YesPlan: Continue Tamiflu. (4) Myasthenia gravis Is this a current diagnosis for this admission?: YesPlan: We will continue to hold Imuran while his pneumonia is under treatment. Continuing the low dose prednisone. He follows with neurologist Dr. Cherelle Orlando at [facility]. (5) Lactic acidosis Is this a current diagnosis for this admission?: YesPlan: Admission lactic acidosis is felt to be due to metformin which has since been discontinued. (6) A-fib Is this a current diagnosis for this admission?: YesPlan: Rate controlled. He is on Xarelto for stroke prevention. (7) Diabetes Is this a current diagnosis for this admission?: YesPlan: Continue monitoring and sliding scale coverage. (8) Chronic kidney disease, stage III (moderate) Is this a current diagnosis for this admission?: Yes (9) Generalized weakness Is this a current diagnosis for this admission?: YesPlan: PT eval/Rx.
[2016-11-11] MEDS: CEFEPIME 1 GM/D5W RTU 1 GM/50 ML RTUPB IV SCH (14:01)
[2016-11-11] MEDS: GABAPENTIN 100 MG CAPSULE PO SCH (18:05)
[2016-11-11] MEDS: VANCOMYCIN HCL 1,250 MG in DEXTROSE 5%-WATER 250 ML IV SCH (18:09)
[2016-11-11 18:37] LABS: CREATININE RESULT 1.72 mg/dL (0.52-1.25)
[2016-11-12 04:03] LABS: ABSOLUTE BASOPHILS # (AUTO) 0.1 10^3/uL (0.0-0.2); ABSOLUTE EOSINOPHILS # (AUTO) 0.1 10^3/uL (0.0-0.6); ABSOLUTE LYMPHOCYTES (AUTO) 0.6 10^3/uL (0.5-4.7); ABSOLUTE MONOCYTES (AUTO) 1.2 10^3/uL (0.1-1.4); ABSOLUTE NEUT (AUTO) 6.2 10^3/uL (1.7-8.2); BASOPHILS % (AUTO) 0.6 % (0-2); EOSINOPHILS % (AUTO) 1.5 % (0-6); HEMOGLOBIN 11.8 g/dL (13.5-17.0); HGB HCT DIFFERENCE 1.4; LYMPHOCYTES % (AUTO) 7.3 % (13-45); MEAN CORPUSCULAR HEMOGLOBIN 34.8 pg (27.0-33.4); MEAN CORPUSCULAR HGB CONC 34.6 g/dL (32.0-36.0); MEAN CORPUSCULAR VOLUME 100 fl (80-97); MONOCYTES % (AUTO) 14.9 % (3-13); RED BLOOD COUNT 3.38 10^6/uL (4.35-5.55); SEGMENTED NEUTROPHILS % (AUTO) 75.7 % (42-78); WHITE BLOOD COUNT 8.2 10^3/uL (4.0-10.5)
[2016-11-12 04:28] LABS: ANION GAP 13 (5-19); BLOOD UREA NITROGEN 51 mg/dL (7-20); CARBON DIOXIDE 21 mmol/L (22-30); CHLORIDE 109 mmol/L (98-107); CREATININE RESULT 1.76 mg/dL (0.52-1.25); GLUCOSE 111 mg/dL (75-110); POTASSIUM 3.8 mmol/L (3.6-5.0); SODIUM 143.2 mmol/L (137-145)
[2016-11-12] MEDS: OSELTAMIVIR PHOSPHATE 75 MG CAPSULE PO SCH (06:57)
--- NOTE | 2016-11-12 08:41 | PDOC PROGRESS REPORT ---
Subjective Progress Note for:: 11/12/16 Subjective:: no more sputum but still malaise. Had flu shot in may Physical Exam Vital Signs: Temp Pulse Resp BP Pulse Ox 98.3 F 82 16 103/63 98 11/12/16 04:00 11/12/16 04:00 11/12/16 04:00 11/12/16 04:00 11/12/16 04:00 Intake & Output 11/11/16 11/12/16 11/13/16 07:59 07:59 07:59 Intake Total 1210 919 Output Total 725 1175 Balance 485 -256 Weight 180 lb 15.992 oz 180 lb 15.992 oz General appearance: PRESENT: no acute distress Respiratory exam: PRESENT: clear to auscultation elizabeth Cardiovascular exam: ABSENT: diastolic murmur, irregular rhythm, systolic murmur GI/Abdominal exam: ABSENT: mass, organolmegaly, tenderness Extremities exam: ABSENT: pedal edema Neurological exam: PRESENT: oriented to situation Psychiatric exam: PRESENT: appropriate affect Results Laboratory Results: 11/12/16 03:47 11/12/16 03:47 11/11/16 11/12/16 11/12/16 17:44 03:47 03:47 WBC 8.2 RBC 3.38 L Hgb 11.8 L Hct 34.0 L MCV 100 H MCH 34.8 H MCHC 34.6 RDW 16.0 H Plt Count 187 Seg Neutrophils % 75.7 Lymphocytes % 7.3 L Monocytes % 14.9 H Eosinophils % 1.5 Basophils % 0.6 Absolute Neutrophils 6.2 Absolute Lymphocytes 0.6 Absolute Monocytes 1.2 Absolute Eosinophils 0.1 Absolute Basophils 0.1 Sodium 143.2 Potassium 3.8 Chloride 109 H Carbon Dioxide 21 L Anion Gap 13 BUN 51 H Creatinine 1.72 H 1.76 H Est GFR ( Amer) 46 L 45 L Est GFR (Non-Af Amer) 38 L 37 L Glucose 111 H Calcium 9.0 11/08/16 22:05 Sputum Gram Stain - Final 11/08/16 22:05 Sputum Sputum Culture - Final NORMAL PORTER Impressions: Head CT 11/07/16 05:08 IMPRESSION: CHRONIC CHANGES OF ATROPHY AND MICROVASCULAR ISCHEMIA. OLD LACUNAR INFARCTS. NO ACUTE PROCESS. Chest X-Ray 11/08/16 11:47 IMPRESSION: Right perihilar infiltrate consistent with pneumonia. Assessment & Plan - Diagnosis (1) Pneumonia Qualifiers: Pneumonia type: due to influenza A virus Laterality: right Lung location: unspecified part of lung Qualified Code(s): J11.00 - Influenza due to unidentified influenza virus with unspecified type of pneumonia Is this a current diagnosis for this admission?: YesPlan: bun doubled. Switch vanc,cefepime, levaquin to ceftriaxone. 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 Consider lantus again if creatinine does not improve.
[2016-11-12] MEDS: COLCHICINE 0.6 MG TABLET PO SCH (09:52)
[2016-11-12] MEDS: RIVAROXABAN 15 MG TABLET PO SCH (09:52)
[2016-11-12] MEDS: PSYLLIUM SEED-SF 5.85 GM PACKET PO SCH ×2 (09:52)
[2016-11-12] MEDS: CALCIUM CARBONATE 250 MG/VITAMIN D3 125 UNIT TABLET PO SCH (09:54)
[2016-11-12] MEDS: PREDNISONE 10 MG TABLET PO SCH (09:54)
[2016-11-12] MEDS: CYANOCOBALAMIN (VITAMIN B-12) 1,000 MCG TABLET PO SCH (09:54)
[2016-11-12] MEDS: BUPROPION HCL 75 MG TABLET PO SCH ×2 (09:55→21:18)
[2016-11-12] MEDS: CEFTRIAXONE 1 GM/D5W RTU 50 ML IV SCH (09:59)
[2016-11-12] MEDS: 1/2 NORMAL SALINE 1,000 ML IV PRN ×2 (13:44→21:18)
[2016-11-13] MEDS: 1/2 NORMAL SALINE 1,000 ML IV PRN (05:57)
[2016-11-13 07:31] LABS: ANION GAP 14 (5-19); BLOOD UREA NITROGEN 44 mg/dL (7-20); CALCIUM 9.4 mg/dL (8.4-10.2); CARBON DIOXIDE 19 mmol/L (22-30); CHLORIDE 110 mmol/L (98-107); CREATININE RESULT 1.43 mg/dL (0.52-1.25); GLUCOSE 100 mg/dL (75-110); POTASSIUM 4.1 mmol/L (3.6-5.0); SODIUM 142.7 mmol/L (137-145)
--- NOTE | 2016-11-13 07:36 | PDOC PROGRESS REPORT ---
Subjective Progress Note for:: 11/13/16 Subjective:: cough still productive. Not baseline yet Physical Exam Vital Signs: Temp Pulse Resp BP Pulse Ox 97.7 F 88 18 126/62 H 96 11/13/16 04:33 11/13/16 04:33 11/13/16 04:33 11/13/16 04:33 11/13/16 04:33 Intake & Output 11/11/16 11/12/16 11/13/16 07:59 07:59 07:59 Intake Total 4112 899 8445 Output Total 725 1175 300 Balance 485 -256 2530 Weight 180 lb 15.992 oz 180 lb 15.992 oz 180 lb 15.992 oz General appearance: PRESENT: no acute distress Respiratory exam: PRESENT: clear to auscultation elizabeth Cardiovascular exam: PRESENT: irregular rhythm, systolic murmur - aortic. ABSENT: diastolic murmur Murmur grade: 2 GI/Abdominal exam: ABSENT: mass, organolmegaly, tenderness Neurological exam: PRESENT: oriented to situation Psychiatric exam: PRESENT: appropriate affect Results Laboratory Results: 11/12/16 03:47 11/07/16 09:20 Blood Blood Culture - Final NO GROWTH IN 5 DAYS Abnormal - 24 hr 11/12/16 11/12/16 11:37 21:13 POC Glucose 118 H 168 H Impressions: Head CT 11/07/16 05:08 IMPRESSION: CHRONIC CHANGES OF ATROPHY AND MICROVASCULAR ISCHEMIA. OLD LACUNAR INFARCTS. NO ACUTE PROCESS. Chest X-Ray 11/08/16 11:47 IMPRESSION: Right perihilar infiltrate consistent with pneumonia. 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 Continue ivf
[2016-11-13] MEDS: BUPROPION HCL 75 MG TABLET PO SCH ×2 (09:45→21:38)
[2016-11-13] MEDS: CALCIUM CARBONATE 250 MG/VITAMIN D3 125 UNIT TABLET PO SCH (09:45)
[2016-11-13] MEDS: COLCHICINE 0.6 MG TABLET PO SCH (09:46)
[2016-11-13] MEDS: RIVAROXABAN 15 MG TABLET PO SCH (09:46)
[2016-11-13] MEDS: CYANOCOBALAMIN (VITAMIN B-12) 1,000 MCG TABLET PO SCH (09:47)
[2016-11-13] MEDS: CEFTRIAXONE 1 GM/D5W RTU 50 ML IV SCH (09:48)
[2016-11-13] MEDS: PSYLLIUM SEED-SF 5.85 GM PACKET PO SCH ×2 (09:48)
[2016-11-14 06:06] LABS: ANION GAP 11 (5-19); BLOOD UREA NITROGEN 34 mg/dL (7-20); CALCIUM 9.2 mg/dL (8.4-10.2); CARBON DIOXIDE 23 mmol/L (22-30); CHLORIDE 111 mmol/L (98-107); CREATININE RESULT 1.54 mg/dL (0.52-1.25); GLUCOSE 90 mg/dL (75-110); POTASSIUM 4.1 mmol/L (3.6-5.0); SODIUM 144.6 mmol/L (137-145)
--- NOTE | 2016-11-14 07:17 | PDOC DISCHARGE SUMMARY ---
General - Admit/Disc Date/PCP Admission Date/Primary Care Provider: 11/07/16 09:14 SHAILA LOPEZ MD Discharge Date: 11/14/16 - Discharge Diagnosis (1) Influenza due to other identified influenza virus with unspecified type of pneumonia Is this a current diagnosis for this admission?: YesSummary: Influenza A with small R perihilar infiltrate and productive cough. Feels better and wants home after tamiflu,vanc, cefepime, levaquin then ceftriaxone. (2) Dehydration Is this a current diagnosis for this admission?: YesSummary: bun25,51,34 with ivf. (3) Diabetes Is this a current diagnosis for this admission?: YesSummary: little need for sliding scale. Resuming metformin. - Additional Information Resuscitation Status: Full Code Discharge Diet: Diabetic Discharge Activity: Activity As Tolerated Home Medications: Antiox#10/Om3/Dha/Epa/Lut/Zeax [I-Caps with Lutein-Crozet 3 Sfg] 1 cap PO BID Azathioprine [Imuran 50 mg Tablet] 150 mg PO DAILY 07/06/13 Biotin [Nail-Ex 2500 mcg Tablet] 1 tab PO DAILY 07/06/13 Cyanocobalamin (Vitamin B-12) [Vitamin B-12] 1,000 mcg PO DAILY 07/06/13 Prednisone 15 mg PO Q2D 07/06/13 Rivaroxaban [Xarelto 15 mg Tablet] 15 mg PO DAILY 07/06/13 Bupropion HCl [Wellbutrin Xl 300mg 24hr Tablet] 300 mg PO DAILY 11/07/16 Calcium Carbonate 500 mg PO BID 11/07/16 Colchicine [Mitigare] 0.6 mg PO DAILY 11/07/16 Gabapentin 100 mg PO QPM 11/07/16 Metformin HCl 1,000 mg PO Q12 11/07/16 Psyllium Husk (with Sugar) [Metamucil Packet] 1 packet PO DAILY 11/07/16 History of Present Illness Patient complains of: cough History of Present Illness: MATTEO RAIN is a 86 year old male with a week of cough. Hospital Course Hospital Course: see above Physical Exam Vital Signs: Temp Pulse Resp BP Pulse Ox 98.0 F 68 20 110/55 L 95 11/14/16 03:35 11/14/16 03:35 11/14/16 03:35 11/14/16 03:35 11/14/16 03:35 Intake & Output 11/12/16 11/13/16 11/14/16 07:59 07:59 07:59 Intake Total 919 2830 3288 Output Total 1175 300 250 Balance -256 2530 3038 Weight 180 lb 15.992 oz 180 lb 15.992 oz General appearance: PRESENT: no acute distress Respiratory exam: PRESENT: wheezes - slight Cardiovascular exam: PRESENT: systolic murmur. ABSENT: diastolic murmur, irregular rhythm Murmur grade: 1 GI/Abdominal exam: ABSENT: tenderness Extremities exam: ABSENT: pedal edema Results Laboratory Results: 11/12/16 03:47 11/14/16 05:11 11/13/16 11/14/16 06:46 05:11 Sodium 142.7 144.6 Potassium 4.1 4.1 Chloride 110 H 111 H Carbon Dioxide 19 L 23 Anion Gap 14 11 BUN 44 H 34 H Creatinine 1.43 H 1.54 H Est GFR ( Amer) 57 L 52 L Est GFR (Non-Af Amer) 47 L 43 L Glucose 100 90 Calcium 9.4 9.2 Impressions: Head CT 11/07/16 05:08 IMPRESSION: CHRONIC CHANGES OF ATROPHY AND MICROVASCULAR ISCHEMIA. OLD LACUNAR INFARCTS. NO ACUTE PROCESS. Chest X-Ray 11/08/16 11:47 IMPRESSION: Right perihilar infiltrate consistent with pneumonia. Qualifiers PATEINT BEING DISCHARGED WITH ANY OF THE FOLLOWING DIAGNOSIS?: No Plan Discharge Plan: 1w ov 2pm Time Spent: Less than 30 Minutes
[2016-11-14 08:16] VITALS: BP 130/72
[2016-11-14] MEDS: CALCIUM CARBONATE 250 MG/VITAMIN D3 125 UNIT TABLET PO SCH (09:22)
[2016-11-14] MEDS: PREDNISONE 10 MG TABLET PO SCH (09:22)
[2016-11-14] MEDS: COLCHICINE 0.6 MG TABLET PO SCH (09:23)
[2016-11-14] MEDS: PSYLLIUM SEED-SF 5.85 GM PACKET PO SCH ×2 (09:23)
[2016-11-14] MEDS: RIVAROXABAN 15 MG TABLET PO SCH (09:24)
[2016-11-14] MEDS: BUPROPION HCL 75 MG TABLET PO SCH (09:24)
[2016-11-14] MEDS: CYANOCOBALAMIN (VITAMIN B-12) 1,000 MCG TABLET PO SCH (09:24)
[2016-11-14] MEDS: CEFTRIAXONE 1 GM/D5W RTU 50 ML IV SCH (09:26)
== END 2016-11-14 10:32 | disposition home or self-care (01) | DRG 195 ==
LOC: ER 04:13 → EH 09:08 → OBSVTOIN 09:14 → 4N 17:50
PROVIDERS: ADMIT Family Medicine; ATTEND Family Medicine
DX: J11.00 Influenza due to unidentified influenza virus with unspecified type of pneumonia (principal); G70.00 Myasthenia gravis without (acute) exacerbation; Z92.25 Personal history of immunosuppression therapy; G47.33 Obstructive sleep apnea (adult) (pediatric); I12.9 Hypertensive chronic kidney disease with stage 1 through stage 4 chronic kidney disease, or unspecified chronic kidney disease; I48.91 Unspecified atrial fibrillation; E11.22 Type 2 diabetes mellitus with diabetic chronic kidney disease; N18.3 Chronic kidney disease, stage 3 (moderate); E78.5 Hyperlipidemia, unspecified; J44.9 Chronic obstructive pulmonary disease, unspecified; R31.9 Hematuria, unspecified; K21.9 Gastro-esophageal reflux disease without esophagitis; M19.90 Unspecified osteoarthritis, unspecified site; F32.9 Major depressive disorder, single episode, unspecified; Z91.81 History of falling; E86.0 Dehydration; Z86.14 Personal history of Methicillin resistant Staphylococcus aureus infection; Z85.828 Personal history of other malignant neoplasm of skin; Z79.84 Long term (current) use of oral hypoglycemic drugs; Z79.899 Other long term (current) drug therapy; Z88.6 Allergy status to analgesic agent; Z88.8 Allergy status to other drugs, medicaments and biological substances; Z79.02 Long term (current) use of antithrombotics/antiplatelets
CPT/HCPCS: 36415; 70450; 71010; 80048; 80053; 80202; 81001; 82550; 82553; 82565; 82962; 83036; 83605; 83735; 84153; 84439; 84443; 84481; 84484; 85025; 85610; 87040; 87070; 87077; 87086; 87205; 87804; 87880; 93005; 93010; 96365; 99284; 99285; G8978-GP; G8979-GP; J0692; J0696; J1815; J1956; J3370; J3490; J7030; J7060; J7512

== ENCOUNTER → 2016-12-10 | Outpatient (CLI) | payer OTHER | LOC: RAD 09:38 | PROVIDERS: ATTEND Family Medicine | DX: J18.9 Pneumonia, unspecified organism (principal) | CPT/HCPCS: 71020 ==

== ENCOUNTER 2017-02-26 08:27 | Emergency (ER) | payer OTHER ==
[2017-02-26 08:53] LABS: ABSOLUTE BASOPHILS # (AUTO) 0.1 10^3/uL (0.0-0.2); ABSOLUTE LYMPHOCYTES (AUTO) 0.6 10^3/uL (0.5-4.7); ABSOLUTE MONOCYTES (AUTO) 1.3 10^3/uL (0.1-1.4); ABSOLUTE NEUT (AUTO) 7.7 10^3/uL (1.7-8.2); BASOPHILS % (AUTO) 0.9 % (0-2); EOSINOPHILS % (AUTO) 0.1 % (0-6); HEMATOCRIT 34.1 % (37.9-51.0); HEMOGLOBIN 11.6 g/dL (13.5-17.0); HGB HCT DIFFERENCE 0.7; LYMPHOCYTES % (AUTO) 5.8 % (13-45); MEAN CORPUSCULAR HEMOGLOBIN 34.7 pg (27.0-33.4); MEAN CORPUSCULAR HGB CONC 34.1 g/dL (32.0-36.0); MEAN CORPUSCULAR VOLUME 102 fl (80-97); MONOCYTES % (AUTO) 13.6 % (3-13); RED BLOOD COUNT 3.35 10^6/uL (4.35-5.55); RED CELL DISTRIBUTION WIDTH 16.2 % (11.5-14.0); SEGMENTED NEUTROPHILS % (AUTO) 79.6 % (42-78); WHITE BLOOD COUNT 9.7 10^3/uL (4.0-10.5)
--- NOTE | 2017-02-26 09:15 | RADIOLOGY REPORT (SQ) ---
EXAM DESCRIPTION: CHEST SINGLE VIEW COMPLETED DATE/TIME: 02/26/2017 9:04 am REASON FOR STUDY: fatigue, fall COMPARISON: Chest films 08/10/2013, 11/08/2016, 12/10/2016 EXAM PARAMETERS: NUMBER OF VIEWS: One view. TECHNIQUE: Single frontal radiographic view of the chest acquired. RADIATION DOSE: NA LIMITATIONS: None. FINDINGS: LUNGS AND PLEURA: No opacities, masses or pneumothorax. No pleural effusion. MEDIASTINUM AND HILAR STRUCTURES: No masses. Contour normal. HEART AND VASCULAR STRUCTURES: Borderline cardiomegaly. BONES: Old healed left clavicle fracture HARDWARE: None in the chest. OTHER: No other significant finding. IMPRESSION: NO ACUTE RADIOGRAPHIC FINDING IN THE CHEST. TECHNICAL DOCUMENTATION: JOB ID: [id number]
--- NOTE | 2017-02-26 09:18 | RADIOLOGY REPORT (SQ) ---
EXAM DESCRIPTION: CT HEAD WITHOUT COMPLETED DATE/TIME: 02/26/2017 9:05 am REASON FOR STUDY: fatigue, fall COMPARISON: CT brain 05/12/2011, 07/06/2013, 11/07/2016 TECHNIQUE: Axial images acquired through the brain without intravenous contrast. Images reviewed wi th bone, brain and subdural windows. Images stored on PACS. All CT scanners at this facility use dose modulation, iterative reconstruction, and/or weight based d osing when appropriate to reduce radiation dose to as low as reasonably achievable (ALARA). [facility]: Dose Right [facility]: CareDose [facility]: Dose Right [facility]: Teradose 4D [facility]: [employer] RADIATION DOSE: Up-to-date CT equipment and radiation dose reduction techniques were employed. CTDIv ol: 64.6 mGy. DLP: 1163 mGy-cm. mGy. LIMITATIONS: None. FINDINGS: VENTRICLES: Normal size and contour. 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 No CT evidence of acute large territory ischemic change, acute intracranial hemorrhage, mass effect, or midline shift. CEREBELLUM: No masses. No hemorrhage. No alteration of density. No evidence for acute infarction. EXTRAAXIAL SPACES: No fluid collections. No masses. ORBITS AND GLOBE: No intra- or extraconal masses. Normal contour of globe without masses. CALVARIUM: No fracture. PARANASAL SINUSES: No fluid or mucosal thickening. SOFT TISSUES: No mass or hematoma. OTHER: No other significant finding. IMPRESSION: Extensive small vessel disease. No acute findings TECHNICAL DOCUMENTATION: JOB ID: [id number] Quality ID # [id number]: Final reports with documentation of one or more dose reduction techniques (e.g., Au tomated exposure control, adjustment of the mA and/or kV according to patient size, use of iterative reconstruction technique) 2010 [employer]- All Rights Reserved
[2017-02-26 09:29] LABS: ALANINE AMINOTRANSFERASE 28 U/L (21-72); ALBUMIN 3.8 g/dL (3.5-5.0); ALKALINE PHOSPHATASE 68 U/L (38-126); ANION GAP 11 (5-19); ASPARTATE AMINO TRANSFERASE 19 U/L (17-59); BILIRUBIN,DIRECT 0.2 mg/dL (0.0-0.4); BILIRUBIN,TOTAL 0.5 mg/dL (0.2-1.3); BLOOD UREA NITROGEN 26 mg/dL (7-20); CALCIUM 9.1 mg/dL (8.4-10.2); CARBON DIOXIDE 24 mmol/L (22-30); CHLORIDE 98 mmol/L (98-107); CREATINE KINASE 57 U/L (55-170); CREATININE RESULT 1.39 mg/dL (0.52-1.25); GLUCOSE 129 mg/dL (75-110); POTASSIUM 4.5 mmol/L (3.6-5.0); SODIUM 132.6 mmol/L (137-145); TOTAL PROTEIN 6.8 g/dL (6.3-8.2)
[2017-02-26] MEDS ORDERED: NORMAL SALINE 1000 ML 1,000 ML IV ONE (09:38)
[2017-02-26 09:40] LABS: CREATINE KINASE MB 0.83 ng/mL (<4.55)
[2017-02-26 09:42] LABS: TROPONIN I 0.035 ng/mL
--- NOTE | 2017-02-26 10:20 | ER Document Report ---
ED Fall - General Chief Complaint: Fall Stated Complaint: WEAKNESS Time Seen by Provider: 02/26/17 08:29 Mode of Arrival: Ambulatory Information source: Patient Notes: Pt is an 86 year old male who presents to the ER today from home via EMS due to fall prior to arrival. Pt states he's been feeling fatigued over the past 2-3 weeks and just has gotten "so weak" that he got up to go to the bathroom this morning with his walker and his leg "gave out from under him." His states it was the one time he did not have her help this morning. He is scheduled to have an echocardiogram tomorrow for these symptoms by his primary care doctor, Dr. Lopez. He states Dr. Lopez has heard a "new murmur." He also states he is "always in a flutter." He did arrive in atrial flutter today. TRAVEL OUTSIDE OF THE [place] IN LAST 30 DAYS: No - Related data Allergies/Adverse Reactions: acetaminophen [From Percocet] Allergy (Verified 07/06/13 09:50) bumetanide [From Bumex] Allergy (Verified 10/18/10 11:02) ivermectin [Ivermectin] Allergy (Verified 07/06/13 09:50) oxycodone HCl [From Percocet] Allergy (Verified 07/06/13 09:50) valsartan [From Diovan] Allergy (Verified 10/18/10 11:02) Past Medical History - General Information source: Patient, Relative - Social History Smoking Status: Unknown if Ever Smoked Family History: Other - both parents of "old age" - Past Medical History Cardiac Medical History: Reports: Hx Atrial Fibrillation, Hx Hypercholesterolemia Pulmonary Medical History: Reports: Hx COPD, Hx Pneumonia, Hx Sleep Apnea Endocrine Medical History: Reports: Hx Diabetes Mellitus Type 2 Renal/ Medical History: Denies: Hx Peritoneal Dialysis Malignancy Medical History: Reports Hx Skin Cancer GI Medical History: Reports: Hx Gastroesophageal Reflux Disease Musculoskeltal Medical History: Reports Hx Arthritis Skin Medical History: Denies Hx MRSA Psychiatric Medical History: Reports: Hx Depression Infectious Medical History: Reports: Hx MRSA - Pneumonia in 2010 Past Surgical History: Reports: Hx Orthopedic Surgery - Left knee prosthesis 1995, right knee prosthesis x2 since 1999. Cataract - Immunizations Hx Pneumococcal Vaccination: 08/19/05 Review of Systems - Review of Systems Constitutional: See HPI EENT: No symptoms reported Cardiovascular: See HPI Respiratory: No symptoms reported Gastrointestinal: No symptoms reported Genitourinary: No symptoms reported Male Genitourinary: No symptoms reported Musculoskeletal: No symptoms reported Skin: No symptoms reported Hematologic/Lymphatic: No symptoms reported Neurological/Psychological: No symptoms reported Physical Exam - Vital signs Vitals: Resp Pulse Ox 20 96 02/26/17 08:46 02/26/17 08:46 - Notes Notes: PHYSICAL EXAMINATION: GENERAL: tired appearing, but in no acute distress. HEAD: Atraumatic, normocephalic. EYES: Pupils equal round and reactive to light, extraocular movements intact, sclera anicteric, conjunctiva are normal. NECK: Normal range of motion, supple without lymphadenopathy LUNGS: CTAB and equal. No wheezes rales or rhonchi. HEART: Regular rate and rhythm without murmurs ABDOMEN: Soft, no tenderness. No guarding, no rebound BACK: no vertebral tenderness, normal ROM GI/: no CVA tenderness EXTREMITIES: Normal range of motion, no pitting edema. No cyanosis. NEUROLOGICAL: Cranial nerves grossly intact. Normal sensory/motor exams. PSYCH: Normal mood, normal affect. SKIN: Warm, Dry, normal turgor, no rashes or lesions noted Course - Re-evaluation Re-evalutation: 02/26/17 10:58 EKG reveals atrial flutter which is chronic for patient. spoke with Dr. Lopez, pt's pcp about symptoms, he believes it's all his aortic stenosis getting worse and wants him to be discharged to follow up with his already scheduled echocardiogram tomorrow. workup today is negative including wbc normal, CT head , chest x ray, urinalysis, lactic, venous blood gas and drug screen. 02/26/17 11:04 02/26/17 12:19 - Vital Signs Vital signs: Temp Pulse Resp BP Pulse Ox 17 148/82 H 97 02/26/17 11:02 02/26/17 11:02 02/26/17 11:02 - Laboratory Result Diagrams: 02/26/17 08:45 02/26/17 08:45 Laboratory results interpreted by me: 02/26/17 02/26/17 02/26/17 08:45 08:45 10:10 RBC 3.35 L Hgb 11.6 L Hct 34.1 L MCV 102 H MCH 34.7 H RDW 16.2 H Seg Neutrophils % 79.6 H Lymphocytes % 5.8 L Monocytes % 13.6 H VBG pH 7.43 H Sodium 132.6 L BUN 26 H Creatinine 1.39 H Est GFR ( Amer) 59 L Est GFR (Non-Af Amer) 48 L Glucose 129 H Urine Protein Urine Ascorbic Acid 02/26/17 10:10 RBC Hgb Hct MCV MCH RDW Seg Neutrophils % Lymphocytes % Monocytes % VBG pH Sodium BUN Creatinine Est GFR ( Amer) Est GFR (Non-Af Amer) Glucose Urine Protein 30 H Urine Ascorbic Acid 40 H Discharge - Discharge Clinical Impression: Weakness Atrial flutter Qualifiers: Atrial flutter type: typical Qualified Code(s): I48.3 - Typical atrial flutter Condition: Stable Disposition: HOME, SELF-CARE Additional Instructions: Please get your schedule echocardiogram tomorrow as planned. Dr. Lopez knows about your visit today. Please return with worsening symptoms. Referrals: SHAILA LOPEZ MD [Primary Care Provider] - Follow up as needed
[2017-02-26 10:25] LABS: VENOUS BLOOD HCO3 27.7 mmol/L (20-32); VENOUS BLOOD PCO2 42.7 mmHg (35-63); VENOUS BLOOD PH 7.43 (7.30-7.42)
[2017-02-26 10:29] LABS: APPEARANCE,URINE CLEAR; BILIRUBIN,URINE NEGATIVE (NEGATIVE); GLUCOSE, URINE NEGATIVE (NEGATIVE); KETONES,URINE NEGATIVE (NEGATIVE); LEUKOCYTE ESTERASE,URINE NEGATIVE (NEGATIVE); NITRITE,URINE NEGATIVE (NEGATIVE); PROTEIN,URINE 30 mg/dL (NEGATIVE); URINE SPECIFIC GRAVITY 1.011; UROBILINOGEN,URINE NEGATIVE mg/dL (<2.0)
[2017-02-26 10:49] LABS: URINE BARBITURATES SCREEN NEGATIVE; URINE METHADONE SCREEN NEGATIVE; URINE OPIATES LOW NEGATIVE; URINE PHENCYCLIDINE SCREEN NEGATIVE
[2017-02-26 11:36] VITALS: BP 148/82
--- NOTE | 2017-02-26 19:12 | EKG REPORT ---
SEVERITY:- ABNORMAL ECG - A-FLUTTER W/ PREDOM 3:1 AV BLOCK, A-RATE 263 RBBB AND LAFB : Confirmed by: Cale Carrillo MD 26-Feb-2017 19:12:13
== END 2017-02-26 11:45 | disposition home or self-care (01) ==
LOC: ER 08:27
DX: R53.1 Weakness (principal); R53.83 Other fatigue; I48.3 Typical atrial flutter; W18.39XA Other fall on same level, initial encounter; Y92.009 Unspecified place in unspecified non-institutional (private) residence as the place of occurrence of the external cause; E78.00 Pure hypercholesterolemia, unspecified; J44.9 Chronic obstructive pulmonary disease, unspecified; E11.9 Type 2 diabetes mellitus without complications; Z88.6 Allergy status to analgesic agent; Z85.828 Personal history of other malignant neoplasm of skin; Z86.14 Personal history of Methicillin resistant Staphylococcus aureus infection; Z96.653 Presence of artificial knee joint, bilateral
CPT/HCPCS: 99285; 36415; 82553; 82550; 83605; 85025; 80053; 81001; 84484; 80307; 82803; 71010; 70450; 93005; 93010; J7030

== ENCOUNTER 2018-06-19 17:31 | Emergency (ER) | payer OTHER ==
--- NOTE | 2018-06-19 17:39 | ER Document Report ---
ED General - General Stated Complaint: WEAKNESS Time Seen by Provider: 06/19/18 17:35 Notes: Patient is a 87-year-old male with diabetes, atrial fibrillation, aortic valve stenosis that presents to the emergency department for chief complaint of generalized weakness, and change in mental status. Patient's is providing history. She states that he had a blood infusion about a week ago, in preparation for his TAVR, and since then he has had less energy, is not been eating or drinking as much as usual, in the last 24 hours, has become more altered, more sleepy, and not answering questions as much. Less interactive than his usual self. She is also noticed that his urine output has been significantly decreased over this period of time. She has not noticed any slurred speech, facial droop, or weakness on one side or the other just overall he has been generally weak. Past Medical History: Atrial fibrillation, diabetes mellitus, hypertension, hyperlipidemia, CAD, aortic valve stenosis Past Surgical History: CAD with stenting Social History: Denies current tobacco, alcohol or drug use, lives at home with his . Family History: Reviewed and noncontributory for presenting illness Allergies: Reviewed, see documented allergy list. REVIEW OF SYSTEMS: Unless otherwise stated in this report the patient's positive and negative responses for review of systems for constitutional, eyes, ENT, cardiovascular, respiratory, gastrointestinal, neurological, genitourinary, musculoskeletal, and integumentary systems and related systems to the presenting problem are either as stated in the HPI or were not pertinent or were negative for the symptoms and/or complaints related to the presenting medical problem. PHYSICAL EXAMINATION: Vital signs reviewed, nursing noted reviewed. GENERAL: Elderly male, somnolent, but in no acute distress HEAD: Atraumatic, normocephalic. EYES: Eyes appear normal, extraocular movements intact, sclera anicteric, conjunctiva are normal. ENT: nares patent, oropharynx clear without exudates. Very dry mucous membranes. NECK: Normal range of motion, supple without lymphadenopathy LUNGS: Breath sounds clear to auscultation bilaterally and equal. No wheezes rales or rhonchi. HEART: Heart rate tachycardic, regular rhythm, audible 4/6 systolic murmur noted ABDOMEN: Soft, obese, nontender, normoactive bowel sounds. No rebound, guarding , or rigidity. No masses appreciated. EXTREMITIES: Nontender, good range of motion, no pitting or edema. NEUROLOGICAL: No focal neurological deficits. Moves all extremities spontaneously Motor and sensory grossly intact on exam. However the patient is somnolent, will open eyes, answer questions, no focal or lateralizing signs noted on exam PSYCH: Somnolent SKIN: Warm, Dry, normal turgor, no rashes or lesions noted on exposed skin TRAVEL OUTSIDE OF THE [place] IN LAST 30 DAYS: No - Related Data Allergies/Adverse Reactions: acetaminophen [From Percocet] Allergy (Verified 06/19/18 17:53) bumetanide [From Bumex] Allergy (Verified 06/19/18 17:53) ivermectin [Ivermectin] Allergy (Verified 06/19/18 17:53) oxycodone HCl [From Percocet] Allergy (Verified 06/19/18 17:53) valsartan [From Diovan] Allergy (Verified 06/19/18 17:53) Past Medical History - Social History Smoking Status: Never Smoker Family History: Reviewed & Not Pertinent, Other - both parents of "old age " - Past Medical History Cardiac Medical History: Reports: Hx Atrial Fibrillation, Hx Hypercholesterolemia Pulmonary Medical History: Reports: Hx COPD, Hx Pneumonia, Hx Sleep Apnea Endocrine Medical History: Reports: Hx Diabetes Mellitus Type 2 Renal/ Medical History: Denies: Hx Peritoneal Dialysis Malignancy Medical History: Reports Hx Skin Cancer GI Medical History: Reports: Hx Gastroesophageal Reflux Disease Musculoskeletal Medical History: Reports Hx Arthritis Skin Medical History: Denies Hx MRSA Psychiatric Medical History: Reports: Hx Depression Infectious Medical History: Reports: Hx MRSA - Pneumonia in 2010 Past Surgical History: Reports: Hx Orthopedic Surgery - Left knee prosthesis 1995, right knee prosthesis x2 since 1999. Cataract - Immunizations Hx Pneumococcal Vaccination: 08/19/05 Physical Exam - Vital signs Vitals: Temp Pulse Resp BP Pulse Ox 98.3 F 118 H 26 H 103/54 L 93 06/19/18 17:42 06/19/18 17:42 06/19/18 17:42 06/19/18 17:42 06/19/18 17:42 Course - Re-evaluation Re-evalutation: Patient seen and examined vital signs reviewed. Laboratory data and imaging were ordered as appropriate for the patient's presenting symptoms and complaint, with consideration of any critical or life threatening conditions that may be associated with their obtained history and exam as noted above. Patient was treated with IV fluids, and IV metoprolol 5 mg Results were reviewed when available and demonstrated acute renal failure from the patient's baseline, likely due to prerenal azotemia, and dehydration as the patient clinically appears significantly dehydrated, I believe the dehydration is contributing to the patient's overall altered mental status, and he is improving with fluids. The patient was re-evaluated and was improving, heart rate was coming down. Evaluation was most consistent with acute kidney injury on chronic kidney disease, atrial flutter with rapid ventricular response, dehydration, and metabolic encephalopathy Results were discussed with the patient at this point after careful consideration I feel that that patient should be transferred to [facility] due to acute kidney injury, in the setting of A. fib with RVR dehydration, and the patient is scheduled for a T AVR at [facility] in less than 2 weeks, and I feel he be best suited at this facility, to be managed.. This was discussed with the patient that it is in the best interest for their care to be transferred, the risks and benefits of transfer were discussed, including but not limited to clinical deterioration during transport, respiratory distress, and potential for traumatic injuries. Patient agreed with this plan of care. *Note is created using voice recognition software and may contain spelling, syntax or grammatical errors. 06/19/18 19:05 06/19/18 19:07 - Vital Signs Vital signs: Temp Pulse Resp BP Pulse Ox 98.3 F 118 H 26 H 103/54 L 93 06/19/18 17:42 06/19/18 17:42 06/19/18 17:44 06/19/18 17:44 06/19/18 17:49 - Laboratory Result Diagrams: 06/19/18 18:00 06/19/18 18:00 Laboratory results interpreted by me: 06/19/18 06/19/18 18:00 18:00 RBC 3.74 L Hgb 13.2 L MCV 103 H MCH 35.3 H RDW 16.9 H Seg Neuts % (Manual) 79 H Band Neutrophils % 12 H Lymphocytes % (Manual) 1 L Metamyelocytes % 2 H Abs Lymphs (Manual) 0.2 L Carbon Dioxide 21 L BUN 60 H Creatinine 2.48 H Est GFR ( Amer) 30 L Est GFR (Non-Af Amer) 25 L Glucose 194 H Total Bilirubin 1.6 H Direct Bilirubin 0.7 H ALT 18 L - EKG Interpretation by Me Additional EKG results interpreted by me: EKG demonstrates atrial flutter with 2-1 AV block, with presence of right bundle branch block and left anterior fascicular block, with a ventricular rate of 123 bpm, left axis deviation, QTC 515 ms, there are T wave inversions in leads V1 and V2, as well as V3 these are compared with prior EKG from 2017, where the T waves were present, but not as prominent. Critical Care Note - Critical Care Note Total time excluding time spent on procedures (mins): 38 Comments: Critical care time 38 minutes exclusive from separate billable procedures for a patient requiring complex medical decision making, and high potential for clinical deterioration. In a patient with acute renal failure, A. fib with RVR requiring IV rate controlling medications, and IV resuscitation. Time spent obtaining history from patient or surrogate, discussions with consultants, development of treatment plan with patient or surrogate, evaluation of patient' s response to treatment, examination of patient, ordering and performing treatments and interventions, ordering and review of laboratory studies, re- evaluation of patient's condition, ordering and review of radiographic studies and review of old charts Discharge - Discharge Clinical Impression: Acute kidney injury, Atrial flutter with rapid ventricular response, Dehydration Altered mental status Qualifiers: Altered mental status type: unspecified Qualified Code(s): R41.82 - Altered mental status, unspecified Condition: Fair Referrals: JESÚS ALVAREZ MD [ACTIVE STAFF] - Follow up as needed
[2018-06-19] MEDS ORDERED: NORMAL SALINE 500 ML IV ONE ×2 (17:50→18:49)
[2018-06-19 18:19] LABS: HEMATOCRIT 38.6 % (37.9-51.0); HEMOGLOBIN 13.2 g/dL (13.5-17.0); MEAN CORPUSCULAR HEMOGLOBIN 35.3 pg (27.0-33.4); MEAN CORPUSCULAR HGB CONC 34.2 g/dL (32.0-36.0); MEAN CORPUSCULAR VOLUME 103 fl (80-97); PLATELET COUNT 170 10^3/uL (150-450); RED BLOOD COUNT 3.74 10^6/uL (4.35-5.55); RED CELL DISTRIBUTION WIDTH 16.9 % (11.5-14.0); WHITE BLOOD COUNT 7.9 10^3/uL (4.0-10.5)
[2018-06-19 18:28] LABS: ALANINE AMINOTRANSFERASE 18 U/L (21-72); ALBUMIN 3.5 g/dL (3.5-5.0); ALKALINE PHOSPHATASE 111 U/L (38-126); ANION GAP 15 (5-19); ASPARTATE AMINO TRANSFERASE 26 U/L (17-59); BILIRUBIN,DIRECT 0.7 mg/dL (0.0-0.4); BILIRUBIN,TOTAL 1.6 mg/dL (0.2-1.3); BLOOD UREA NITROGEN 60 mg/dL (7-20); CALCIUM 9.2 mg/dL (8.4-10.2); CARBON DIOXIDE 21 mmol/L (22-30); CHLORIDE 105 mmol/L (98-107); CREATINE KINASE 107 U/L (55-170); GLUCOSE 194 mg/dL (75-110); POTASSIUM 3.8 mmol/L (3.6-5.0); SODIUM 141.4 mmol/L (137-145); TOTAL PROTEIN 6.3 g/dL (6.3-8.2)
[2018-06-19 18:40] LABS: CREATINE KINASE MB 0.73 ng/mL (<4.55)
--- NOTE | 2018-06-19 18:41 | RADIOLOGY REPORT (SQ) ---
EXAM DESCRIPTION: CHEST SINGLE VIEW COMPLETED DATE/TIME: 06/19/2018 6:07 pm REASON FOR STUDY: weakness COMPARISON: 02/26/2017 and early EXAM PARAMETERS: NUMBER OF VIEWS: One view. TECHNIQUE: Single frontal radiographic view of the chest acquired. RADIATION DOSE: NA LIMITATIONS: None. FINDINGS: LUNGS AND PLEURA: No opacities, masses or pneumothorax. No pleural effusion. MEDIASTINUM AND HILAR STRUCTURES: No masses. Contour normal. HEART AND VASCULAR STRUCTURES: Unchanged borderline cardiomegaly. Central pulmonary vasculature is n ormal. Calcifications of the aortic knob. Tortuous thoracic aorta. BONES: No acute findings. HARDWARE: None in the chest. OTHER: No other significant finding. IMPRESSION: NO ACUTE RADIOGRAPHIC FINDING IN THE CHEST. TECHNICAL DOCUMENTATION: JOB ID: [id number] [employer]- All Rights Reserved Reading location - IP/workstation name: [email or web address]
[2018-06-19 18:43] LABS: ABSOLUTE LYMPHOCYTES# (MANUAL) 0.2 10^3/uL (0.5-4.7); ABSOLUTE MONOCYTES # (MANUAL) 0.4 10^3/uL (0.1-1.4); ABSOLUTE NEUTROPHILS# (MANUAL) 7.3 10^3/uL (1.7-8.2); BASOPHILS % (MANUAL) 0 % (0-2); EOSINOPHILS % (MANUAL) 0 % (0-6); LYMPHOCYTES % (MANUAL) 1 % (13-45); METAMYELOCYTES % (MANUAL) 2 % (0); MONOCYTES % (MANUAL) 5 % (3-13); SEGMENTED NEUTROPHILS % (MAN) 79 % (42-78); TOTAL CELLS COUNTED 100
[2018-06-19 18:45] LABS: ANISOCYTOSIS 1+; OVALOCYTES SLIGHT; PLATELET COMMENT ADEQUATE; POIKILOCYTOSIS SLIGHT; TOXIC VACUOLATION PRESENT
[2018-06-19 18:46] LABS: BAND NEUTROPHILS % (MANUAL) 12 % (3-5)
[2018-06-19 18:49] LABS: BURR CELLS SLIGHT; TOXIC GRANULATION 1+
[2018-06-19] MEDS ORDERED: METOPROLOL TARTRATE PF/INJ 5 MG/5 ML SDV IV ONE (18:50)
--- NOTE | 2018-06-19 18:55 | RADIOLOGY REPORT (SQ) ---
EXAM DESCRIPTION: CT HEAD WITHOUT COMPLETED DATE/TIME: 06/19/2018 6:17 pm REASON FOR STUDY: change in mental status COMPARISON: 02/26/2017 and early TECHNIQUE: Axial images acquired through the brain without intravenous contrast. Images reviewed wi th bone, brain and subdural windows. Additional sagittal and coronal reconstructions were generated. Images stored on PACS. All CT scanners at this facility use dose modulation, iterative reconstruction, and/or weight based d osing when appropriate to reduce radiation dose to as low as reasonably achievable (ALARA). [facility]: Dose Right [facility]: CareDose [facility]: Dose Right [facility]: Teradose 4D [facility]: Smart Augur RADIATION DOSE: CT Rad equipment meets quality standard of care and radiation dose reduction techniq ues were employed. CTDIvol: 53.2 mGy. DLP: 937 mGy-cm. mGy. LIMITATIONS: None. FINDINGS: VENTRICLES: Ventricles are appropriate in size for the patient's age. CEREBRUM: No masses. No hemorrhage. No midline shift. No evidence for acute infarction. Extensive areas of low density in the white matter most likely chronic small vessel ischemic changes. Unchange d chronic right basal ganglia lacunar infarct. CEREBELLUM: No masses. No hemorrhage. No alteration of density. No evidence for acute infarction. EXTRAAXIAL SPACES: No fluid collections. No masses. ORBITS AND GLOBE: No intra- or extraconal masses. Normal contour of globe without masses. CALVARIUM: No fracture. PARANASAL SINUSES: No fluid or mucosal thickening. SOFT TISSUES: No mass or hematoma. OTHER: No other significant finding. IMPRESSION: 1. No acute intracranial findings. 2. Unchanged chronic microvascular ischemic disease. EVIDENCE OF ACUTE STROKE: NO. COMMENT: Quality ID # [id number]: Final reports with documentation of one or more dose reduction techniques (e.g., Automated exposure control, adjustment of the mA and/or kV according to patient size, use of iterative reconstruction technique) TECHNICAL DOCUMENTATION: JOB ID: [id number] [employer]- All Rights Reserved Reading location - IP/workstation name: [email or web address]
[2018-06-19 19:14] LABS: TROPONIN I 0.072 ng/mL
--- NOTE | 2018-06-19 20:45 | EKG REPORT ---
SEVERITY:- ABNORMAL ECG - ATRIAL FLUTTER WITH 2:1 AV BLOCK RBBB AND LAFB PROBABLE LVH WITH SECONDARY REPOL ABNRM : Confirmed by: Estefani Lynn MD 19-Jun-2018 20:44:38
[2018-06-19 21:20] LABS: APPEARANCE,URINE SLIGHTLY-CLOUDY; BILIRUBIN,URINE NEGATIVE (NEGATIVE); COLOR,URINE AMBER; GLUCOSE, URINE NEGATIVE (NEGATIVE); KETONES,URINE NEGATIVE (NEGATIVE); LEUKOCYTE ESTERASE,URINE TRACE (NEGATIVE); NITRITE,URINE NEGATIVE (NEGATIVE); PROTEIN,URINE 30 mg/dL (NEGATIVE); URINE SPECIFIC GRAVITY 1.015; UROBILINOGEN,URINE NEGATIVE mg/dL (<2.0)
[2018-06-19] MEDS ORDERED: ACETAMINOPHEN 325 MG TABLET PO ONE (21:24)
[2018-06-19 23:08] LABS: A TYPE INFLUENZA AG NEGATIVE (NEGATIVE); B INFLUENZA AG NEGATIVE (NEGATIVE)
[2018-06-19] MEDS ORDERED: NORMAL SALINE 1000 ML 1,000 ML IV ONE (23:23)
[2018-06-19] MEDS ORDERED: VANCOMYCIN HCL INJ 1000 MG VIAL IV ONE (23:24)
[2018-06-19] MEDS ORDERED: PIPERACILLIN/TAZOBACTAM 3.375 GM VIAL IV ONE (23:24)
[2018-06-20 09:46] VITALS: BP 94/63
[2018-06-20 10:05] LABS: PATH REVIEW PATHOLOGIST REVIEWED
--- NOTE | 2018-06-20 10:09 | ER Document Report ---
Doctor's Note Notes: 06/20/18 10:09 [facility] is here to take the patient to [facility]. This time his pulse is 120, BP 111/56, 94% pulse ox. Patient is stable for transfer at this time.
== END 2018-06-20 10:44 | disposition short-term general hospital (02) ==
LOC: ER 17:31
DX: N17.9 Acute kidney failure, unspecified (principal); I48.92 Unspecified atrial flutter; E86.0 Dehydration; R41.82 Altered mental status, unspecified; R53.1 Weakness; E11.9 Type 2 diabetes mellitus without complications; I48.91 Unspecified atrial fibrillation; E78.00 Pure hypercholesterolemia, unspecified; J44.9 Chronic obstructive pulmonary disease, unspecified
CPT/HCPCS: 93005; 99291; 96361; 96375; 96365; 96368; 36415; 87040; 82553; 82550; 85025; 80053; 81001; 84484; 83605; 87804; 71045; 70450; 93010; A9270; J3490; J7030; J7040; J3370; J2543

== ENCOUNTER → 2018-08-01 | Outpatient (CLI) | payer OTHER ==
--- NOTE | 2018-08-01 16:31 | RADIOLOGY REPORT (SQ) ---
EXAM DESCRIPTION: NM WHOLE BODY BONE SCAN COMPLETED DATE/TIME: 08/01/2018 3:52 pm REASON FOR STUDY: PROSTATE CA W/ BONE METS (C61, C79.51) C61 MALIGNANT NEOPLASM OF PROSTATE COMPARISON: CT brain 06/19/2018 AP chest 06/19/2018 RADIONUCLIDE AND DOSE: 20.8 millicuries Tc99m MDP. The route of agent administration: Intravenous. ADDITIONAL DRUGS AND DOSES: None. TECHNIQUE: Routine delayed images at 3 hour post radionuclide injection acquired of the bony skeleto n including anterior and posterior whole-body projections and additional focused images as needed. LIMITATIONS: None. FINDINGS: BONES: Increased uptake is present in the right ischium, left innominate bone near the SI joint, multiple posterior ribs, and multiple thoracic vertebral bodies. There is also increased upta ke in the right proximal femur. These lesions are worrisome for metastatic disease given history of prostate cancer. Bilateral total knee replacements with minimal surrounding appropriate activity. 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 KIDNEYS: Symmetric excretion without obstruction. OTHER: No other significant finding. IMPRESSION: Spotty skeletal uptake over the ribs, thoracic spine, right proximal femur and bony pelv is worrisome for metastatic disease. COMMENT: Quality measure 147: Current bone scan is compared with any available plain radiographs, p rior bone scans, and CT/MRI. TECHNICAL DOCUMENTATION: JOB ID: [id number] [employer]- All Rights Reserved Reading location - IP/workstation name: [email or web address]
== END ==
LOC: RAD 10:48
PROVIDERS: ATTEND Internal Medicine Medical Oncology
DX: C61 Malignant neoplasm of prostate (principal); C79.51 Secondary malignant neoplasm of bone
CPT/HCPCS: 78306; A9561; Q9969

== ENCOUNTER → 2018-08-15 | Outpatient (CLI) | payer OTHER ==
--- NOTE | 2018-08-15 11:51 | RADIOLOGY REPORT (SQ) ---
EXAM DESCRIPTION: MRI LUMBAR SPINE COMBO COMPLETED DATE/TIME: 08/15/2018 11:39 am REASON FOR STUDY: MAL GRISEL OF PROSTATE/SECONDARY MAL GRISEL OF BONE C61 MALIGNANT NEOPLASM OF PROSTATE COMPARISON: None. TECHNIQUE: Sagittal and Axial imaging includes T1, T1 post gadolinium, T2, STIR and gradient echo se quences. Coronal T2/HASTE imaging. CONTRAST TYPE AND DOSE: 20 mL Dotarem. RENAL FUNCTION: GFR 41 LIMITATIONS: None. FINDINGS: VISUALIZED UPPER ABDOMEN: Limited evaluation. No acute or suspicious findings suggested. SEGMENTATION: No transitional anatomy. The lowest well-developed disc space is labeled L5-S1. ALIGNMENT: Mild convex left scoliosis. VERTEBRAE: Intact. No fractures. BONE MARROW: Multiple areas of decreased T1 signal and abnormal enhancement in the upper lumbar verte bral bodies and left ilium. DISC SIGNAL: Desiccation multiple levels. POSTERIOR ELEMENTS: Generally intact. No pars defect evident. HARDWARE: None in the spine. CORD AND CONUS: Normal in size and signal intensity. Conus at the appropriate level. SOFT TISSUES: No aortic aneurysm seen. No bulky retroperitoneal adenopathy or mass. No paraspinal mas s or fluid. L1-L2: No significant spinal stenosis or exit foraminal stenosis. L2-L3: Mild spinal stenosis due to disc osteophyte complex and facet arthropathy. L3-L4: Mild spinal stenosis due to disc osteophyte complex and facet arthropathy. L4-L5: Mild spinal stenosis due to disc osteophyte complex and facet arthropathy. Mild left and mode rate right neural foraminal narrowing. L5-S1: Disc bulge and facet arthropathy. No significant stenosis. LOWER THORACIC: Incompletely imaged. No stenosis seen. SACRUM: Visualized upper sacrum intact. ENHANCEMENT: See above. OTHER: No other significant findings. IMPRESSION: Bone metastasis. No evidence of pathologic fracture or epidural mass. TECHNICAL DOCUMENTATION: JOB ID: [id number] [employer]- All Rights Reserved Reading location - IP/workstation name: [email or web address]
== END ==
LOC: RAD 10:21
PROVIDERS: ATTEND Internal Medicine Medical Oncology
DX: C61 Malignant neoplasm of prostate (principal); C79.51 Secondary malignant neoplasm of bone
CPT/HCPCS: 82565; 72158; A9576

== ENCOUNTER → 2019-05-11 | Outpatient (CLI) | payer OTHER ==
[2019-05-11 08:53] LABS: ABSOLUTE EOSINOPHILS # (AUTO) 0.2 10^3/uL (0.0-0.6); ABSOLUTE LYMPHOCYTES (AUTO) 0.8 10^3/uL (0.5-4.7); ABSOLUTE MONOCYTES (AUTO) 0.8 10^3/uL (0.1-1.4); BASOPHILS % (AUTO) 0.6 % (0-2); HEMATOCRIT 30.5 % (37.9-51.0); HEMOGLOBIN 10.6 g/dL (13.5-17.0); LYMPHOCYTES % (AUTO) 9.9 % (13-45); MEAN CORPUSCULAR HEMOGLOBIN 36.2 pg (27.0-33.4); MEAN CORPUSCULAR HGB CONC 34.6 g/dL (32.0-36.0); MEAN CORPUSCULAR VOLUME 104 fl (80-97); MONOCYTES % (AUTO) 10.5 % (3-13); PLATELET COUNT 154 10^3/uL (150-450); RED BLOOD COUNT 2.93 10^6/uL (4.35-5.55); RED CELL DISTRIBUTION WIDTH 15.7 % (11.5-14.0); TOTAL CELLS COUNTED % (AUTO) 100 %; WHITE BLOOD COUNT 7.8 10^3/uL (4.0-10.5)
[2019-05-11 09:27] LABS: ALKALINE PHOSPHATASE 67 U/L (38-126); ANION GAP 13 (5-19); ASPARTATE AMINO TRANSFERASE 20 U/L (17-59); BILIRUBIN,DIRECT 0.1 mg/dL (0.0-0.4); BILIRUBIN,TOTAL 0.5 mg/dL (0.2-1.3); BLOOD UREA NITROGEN 37 mg/dL (7-20); CALCIUM 9.8 mg/dL (8.4-10.2); CARBON DIOXIDE 26 mmol/L (22-30); CHLORIDE 101 mmol/L (98-107); GLUCOSE 289 mg/dL (75-110); PHOSPHORUS 4.2 mg/dL (2.5-4.5); TOTAL PROTEIN 6.8 g/dL (6.3-8.2)
[2019-05-11 11:30] LABS: APPEARANCE,URINE CLEAR; BILIRUBIN,URINE NEGATIVE (NEGATIVE); COLOR,URINE YELLOW; GLUCOSE, URINE 150 mg/dL (NEGATIVE); KETONES,URINE NEGATIVE (NEGATIVE); LEUKOCYTE ESTERASE,URINE NEGATIVE (NEGATIVE); NITRITE,URINE NEGATIVE (NEGATIVE); PROTEIN,URINE NEGATIVE (NEGATIVE); URINE SPECIFIC GRAVITY 1.013; UROBILINOGEN,URINE NEGATIVE mg/dL (<2.0)
== END ==
LOC: OD 08:20
PROVIDERS: ATTEND Internal Medicine Nephrology
DX: E11.22 Type 2 diabetes mellitus with diabetic chronic kidney disease (principal); I12.9 Hypertensive chronic kidney disease with stage 1 through stage 4 chronic kidney disease, or unspecified chronic kidney disease; N18.3 Chronic kidney disease, stage 3 (moderate); I95.9 Hypotension, unspecified
CPT/HCPCS: 36415; 80053; 81001; 82533; 83970; 84100; 85025

== ENCOUNTER → 2019-07-02 | Outpatient (CLI) | payer OTHER ==
[2019-07-02 10:37] LABS: ABSOLUTE BASOPHILS # (AUTO) 0.1 10^3/uL (0.0-0.2); ABSOLUTE EOSINOPHILS # (AUTO) 0.2 10^3/uL (0.0-0.6); ABSOLUTE LYMPHOCYTES (AUTO) 0.8 10^3/uL (0.5-4.7); ABSOLUTE NEUT (AUTO) 5.9 10^3/uL (1.7-8.2); BASOPHILS % (AUTO) 0.7 % (0-2); HEMATOCRIT 31.5 % (37.9-51.0); HEMOGLOBIN 10.7 g/dL (13.5-17.0); LYMPHOCYTES % (AUTO) 9.5 % (13-45); MEAN CORPUSCULAR HEMOGLOBIN 35.8 pg (27.0-33.4); MEAN CORPUSCULAR HGB CONC 34.1 g/dL (32.0-36.0); MEAN CORPUSCULAR VOLUME 105 fl (80-97); MONOCYTES % (AUTO) 12.4 % (3-13); PLATELET COUNT 181 10^3/uL (150-450); RED CELL DISTRIBUTION WIDTH 15.6 % (11.5-14.0); SEGMENTED NEUTROPHILS % (AUTO) 74.4 % (42-78); TOTAL CELLS COUNTED % (AUTO) 100 %; WHITE BLOOD COUNT 7.9 10^3/uL (4.0-10.5)
[2019-07-02 10:52] LABS: ANION GAP 10 (5-19); BLOOD UREA NITROGEN 31 mg/dL (7-20); CARBON DIOXIDE 27 mmol/L (22-30); CHLORIDE 107 mmol/L (98-107); GLUCOSE 136 mg/dL (75-110); POTASSIUM 4.8 mmol/L (3.6-5.0)
[2019-07-03 11:20] LABS: APPEARANCE,URINE CLEAR; BILIRUBIN,URINE NEGATIVE (NEGATIVE); COLOR,URINE YELLOW; GLUCOSE, URINE NEGATIVE (NEGATIVE); KETONES,URINE NEGATIVE (NEGATIVE); LEUKOCYTE ESTERASE,URINE NEGATIVE (NEGATIVE); NITRITE,URINE NEGATIVE (NEGATIVE); PROTEIN,URINE NEGATIVE (NEGATIVE); URINE SPECIFIC GRAVITY 1.006; UROBILINOGEN,URINE NEGATIVE mg/dL (<2.0)
== END ==
LOC: OD 09:35
PROVIDERS: ATTEND Internal Medicine Nephrology
DX: I12.9 Hypertensive chronic kidney disease with stage 1 through stage 4 chronic kidney disease, or unspecified chronic kidney disease (principal); N18.3 Chronic kidney disease, stage 3 (moderate); E11.22 Type 2 diabetes mellitus with diabetic chronic kidney disease
CPT/HCPCS: 36415; 80048; 81001; 85025

== ENCOUNTER 2019-08-14 00:22 | Observation (INO) | payer OTHER ==
[2019-08-14 00:52] LABS: INTERNATIONAL RATION (INR) 1.15; PROTHROMBIN TIME 14.8 SEC (11.4-15.4)
[2019-08-14 01:09] LABS: ALBUMIN 4.2 g/dL (3.5-5.0); ALKALINE PHOSPHATASE 83 U/L (38-126); ANION GAP 17 (5-19); ASPARTATE AMINO TRANSFERASE 29 U/L (17-59); BILIRUBIN,DIRECT 0.2 mg/dL (0.0-0.4); BILIRUBIN,TOTAL 0.5 mg/dL (0.2-1.3); BLOOD UREA NITROGEN 35 mg/dL (7-20); CALCIUM 8.6 mg/dL (8.4-10.2); CARBON DIOXIDE 21 mmol/L (22-30); CHLORIDE 102 mmol/L (98-107); GLUCOSE 192 mg/dL (75-110); POTASSIUM 4.1 mmol/L (3.6-5.0); TOTAL PROTEIN 7.1 g/dL (6.3-8.2)
[2019-08-14 01:13] LABS: HEMATOCRIT 33.7 % (37.9-51.0); HEMOGLOBIN 11.3 g/dL (13.5-17.0); MEAN CORPUSCULAR HEMOGLOBIN 35.2 pg (27.0-33.4); MEAN CORPUSCULAR HGB CONC 33.5 g/dL (32.0-36.0); MEAN CORPUSCULAR VOLUME 105 fl (80-97); PLATELET COUNT 219 10^3/uL (150-450); RED BLOOD COUNT 3.21 10^6/uL (4.35-5.55); RED CELL DISTRIBUTION WIDTH 15.9 % (11.5-14.0); WHITE BLOOD COUNT 11.3 10^3/uL (4.0-10.5)
[2019-08-14 01:18] LABS: ABSOLUTE LYMPHOCYTES# (MANUAL) 0.5 10^3/uL (0.5-4.7); ABSOLUTE MONOCYTES # (MANUAL) 0.3 10^3/uL (0.1-1.4); BAND NEUTROPHILS % (MANUAL) 2 % (3-5); BASOPHILS % (MANUAL) 0 % (0-2); EOSINOPHILS % (MANUAL) 0 % (0-6); LYMPHOCYTES % (MANUAL) 4 % (13-45); MONOCYTES % (MANUAL) 3 % (3-13); SEGMENTED NEUTROPHILS % (MAN) 91 % (42-78); TOTAL CELLS COUNTED 100
[2019-08-14 01:19] LABS: ANISOCYTOSIS SLIGHT; BURR CELLS SLIGHT; POIKILOCYTOSIS SLIGHT; TOXIC GRANULATION SLIGHT; TOXIC VACUOLATION PRESENT
[2019-08-14 01:20] LABS: OVALOCYTES SLIGHT; PLATELET COMMENT ADEQUATE; SCHISTOCYTES SLIGHT
[2019-08-14 02:04] LABS: VENOUS BLOOD BASE EXCESS -1.2 mmol/L; VENOUS BLOOD HCO3 22.1 mmol/L (20-32); VENOUS BLOOD PCO2 32.1 mmHg (35-63); VENOUS BLOOD PH 7.46 (7.30-7.42)
[2019-08-14] MEDS ORDERED: NORMAL SALINE 1000 ML 1,000 ML IV ONE (03:46)
--- NOTE | 2019-08-14 03:53 | ER Document Report ---
ED General - General Chief Complaint: Nausea/Vomiting Stated Complaint: NAUSEA/VOMITING Time Seen by Provider: 08/14/19 03:20 Mode of Arrival: Medic Information source: Patient TRAVEL OUTSIDE OF THE [place] IN LAST 30 DAYS: No - HPI Onset: Just prior to arrival - Today patient developed intractable nausea and vomiting on into the evening. Tonight while lying in bed he began to vomit and then he rolled off of the bed as he was leaning over to fix to vomit liquid out of his GI tract. Patient carefully landed on the floor as his was trying to assist the rollover to the floor. No loss of consciousness or head injury or any kind trauma from the fall to the floor. However his was unable to pick him up EMS was called. Once EMS arrived they noted that patient had a fever and therefore they did a blood work that included a bedside lactic acid that was elevated and at that point EMS provided patient with 1 g of Rocephin 4 mg of Zofran and 975 mg Tylenol. Patient was brought in in route with no new intervention or any acute complications. Onset/Duration: Persistent Quality of pain: Achy Severity: Moderate Pain Level: 3 Context: Intractable nausea and vomiting generalized weakness Associated symptoms: None, Vomiting, Weakness Similar symptoms previously: No Recently seen / treated by doctor: No - Related Data Allergies/Adverse Reactions: bumetanide [From Bumex] Allergy (Verified 06/19/18 17:53) ivermectin [Ivermectin] Allergy (Verified 06/19/18 17:53) oxycodone HCl [From Percocet] Allergy (Verified 06/19/18 17:53) valsartan [From Diovan] Allergy (Verified 06/19/18 17:53) Home Medications: Copy of list in chart Past Medical History - General Information source: Patient, Relative - Social History Smoking Status: Former Smoker Frequency of alcohol use: None Lives with: Family Family History: None, Reviewed & Not Pertinent, Other - both parents of "old age" Patient has suicidal ideation: No Patient has homicidal ideation: No - Medical History Medical History: Other - Patient has a history of insulin-dependent diabetes mellitus atrial fibrillation aortic valve replacement prostate cancer cataract surgery gouty arthritis hearing loss - Past Medical History Cardiac Medical History: Reports: Hx Atrial Fibrillation, Hx Hypercholeste rolemia Pulmonary Medical History: Reports: Hx COPD, Hx Pneumonia, Hx Sleep Apnea Endocrine Medical History: Reports: Hx Diabetes Mellitus Type 2 Renal/ Medical History: Denies: Hx Peritoneal Dialysis Malignancy Medical History: Reports Hx Skin Cancer GI Medical History: Reports: Hx Gastroesophageal Reflux Disease Musculoskeletal Medical History: Reports Hx Arthritis Skin Medical History: Denies Hx MRSA Psychiatric Medical History: Reports: Hx Depression Infectious Medical History: Reports: Hx MRSA - Pneumonia in 2010 Past Surgical History: Reports: Hx Orthopedic Surgery - Left knee prosthesis 1995, right knee prosthesis x2 since 1999. Cataract - Immunizations Hx Pneumococcal Vaccination: 08/19/05 Review of Systems - Review of Systems Constitutional: See HPI - Generalized weakness nausea vomiting, Weakness EENT: No symptoms reported Cardiovascular: See HPI - Chronic atrial fibrillation, Heart racing - Sure the right the patient has chosen to leave the facility against medical advice. The relevant issues have been reviewed and discussed with the patient and family at the bedside. At the time of this assessment there is no indication for involuntary commitment. The patient is alert, oriented, and able to express clearly their reasoning for not wanting to remain in the emergency department for further treatment. The patient is not clinically psychotic, intoxicated, and denies and suicidal ideation. Differential or suspected diagnoses based on medical screening exam: . The patient is aware of the concerning diagnoses and acknowledges understanding of the reasons for the following recommendations: The following recommendations/services were offered and refused: The following risks were explained: , permanent disability, loss of function Clinical impression: Patient is competent to make decisions regarding the medical that is being offered. Coags coag Respiratory: No symptoms reported Gastrointestinal: See HPI, Nausea, Vomiting Genitourinary: No symptoms reported, Other - History of prostate cancer Musculoskeletal: No symptoms reported Skin: No symptoms reported Hematologic/Lymphatic: No symptoms reported Neurological/Psychological: Weakness Physical Exam - Vital signs Vitals: Temp Pulse Resp BP Pulse Ox 100.4 F 111 H 22 H 134/60 H 95 08/14/19 00:35 08/14/19 00:35 08/14/19 00:35 08/14/19 00:35 08/14/19 00:35 - Notes Notes: Appears generally ill. Skin color pale, dry. Abdomen appears distended which is baseline. - General General appearance: Other - Appears ill In distress: Moderate - Moderate - HEENT Head: Normocephalic, Atraumatic Eyes: Normal Pupils: PERRL - Respiratory Chest status: Nontender Breath sounds: Decreased air movement Chest palpation: Normal - Cardiovascular Heart sounds: Normal auscultation - Abdominal Distension: Distended Bowel sounds: Hyperactive Tenderness: Tender, Other - No rebound or significant guarding noted Organomegaly: No organomegaly - Back Back: Nontender - Neurological Cognition: Normal Orientation: AAOx4 - Psychological Associated symptoms: Normal affect, Normal mood - Skin Skin Moisture: Dry Skin Color: Ord, Pale Course - Re-evaluation Re-evalutation: 08/16/19 07:16 Patient was reevaluated and showed that he was improving with IV fluids. Despite our efforts to lower his lactic acid actually increased after receiving IV fluids. Therefore patient was admitted to the hospitalist for further evaluation and management. - Vital Signs Vital signs: Temp Pulse Resp BP Pulse Ox 97.9 F 76 14 121/49 L 95 08/15/19 23:58 08/15/19 23:58 08/16/19 00:06 08/15/19 23:58 08/15/19 23:58 - Laboratory Result Diagrams: 08/15/19 05:59 08/15/19 05:59 Laboratory results interpreted by me: 08/13/19 08/13/19 08/14/19 23:45 23:45 01:33 WBC 11.3 H RBC 3.21 L Hgb 11.3 L Hct 33.7 L MCV 105 H MCH 35.2 H RDW 15.9 H Seg Neuts % (Manual) 91 H Band Neutrophils % 2 L Lymphocytes % (Manual) 4 L Abs Neuts (Manual) 10.5 H VBG pH 7.46 H VBG pCO2 32.1 L Carbon Dioxide 21 L BUN 35 H Creatinine 1.79 H Est GFR ( Amer) 44 L Est GFR (MDRD) Non-Af 36 L Glucose 192 H Lactic Acid NT-Pro-B Natriuret Pep Urine Protein Urine Glucose (UA) Urine Ascorbic Acid 08/14/19 08/14/19 08/14/19 01:33 01:53 03:57 WBC RBC Hgb Hct MCV MCH RDW Seg Neuts % (Manual) Band Neutrophils % Lymphocytes % (Manual) Abs Neuts (Manual) VBG pH VBG pCO2 Carbon Dioxide BUN Creatinine Est GFR ( Amer) Est GFR (MDRD) Non-Af Glucose Lactic Acid 3.5 H 4.5 H NT-Pro-B Natriuret Pep Urine Protein 100 H Urine Glucose (UA) 50 H Urine Ascorbic Acid 40 H 08/14/19 03:57 WBC RBC Hgb Hct MCV MCH RDW Seg Neuts % (Manual) Band Neutrophils % Lymphocytes % (Manual) Abs Neuts (Manual) VBG pH VBG pCO2 Carbon Dioxide BUN Creatinine Est GFR ( Amer) Est GFR (MDRD) Non-Af Glucose Lactic Acid NT-Pro-B Natriuret Pep 1300 H Urine Protein Urine Glucose (UA) Urine Ascorbic Acid - Diagnostic Test Radiology reviewed: Image reviewed, Reports reviewed - EKG Interpretation by Me Additional EKG results interpreted by me: 08/14/19 06:22 Twelve-lead EKG dated 08/14 at 0041 time twelve-lead EKG shows sinus tachycardia at 110 with a right bundle branch block, and left anterior fascicular block. Left ventricular hypertrophy by voltage criteria, and no other acute process. These findings are not new Discharge - Discharge Clinical Impression: Intractable nausea and vomiting, Generalized weakness, Lactic acidosis, Dehydration Condition: Fair Disposition: ADMITTED INPATIENT Admitting Provider: Sb (Hospitalist) Unit Admitted: Medical Floor
[2019-08-14] MEDS ORDERED: PIPERACILLIN/TAZOBACTAM 3.375 GM VIAL IV ONE (04:56)
[2019-08-14 04:58] LABS: NT PRO BNP 1300 pg/mL (<450)
[2019-08-14 05:00] LABS: TROPONIN I < 0.012 ng/mL
--- NOTE | 2019-08-14 05:35 | RADIOLOGY REPORT (SQ) ---
EXAM DESCRIPTION: CT ABDOMEN PELVIS WITHOUT IV CONTRAST COMPLETED DATE/TME: 08/14/2019 03:48 CLINICAL HISTORY: 88 years, Male, nausea/vomiting COMPARISON: None. TECHNIQUE: [id number] Images stored on PACS. All CT scanners at this facility use dose modulation, iterative reconstruction, and/or weight based dosing when appropriate to reduce radiation dose to as low as reasonably achievable (ALARA). [facility]: Dose Right [facility]: CareDose [facility]: Dose Right [facility]: Teradose 4D [facility]: [employer]Metrics LIMITATIONS: None. FINDINGS: Limited evaluation of the lung bases shows subsegmental atelectasis in each lung base. Small hiatal hernia. Multiple old right rib fractures. Extensive sclerotic changes of the lumbosacral spine, bony pelvis and hips consistent with extensive osseous metastases. Limited evaluation of the liver, spleen, adrenal glands, pancreas is unremarkable. Nonobstructing 4 mm right renal calculus. No obstructing calculus. No hydronephrosis. Subcentimeter right renal cyst. The gallbladder is present. Extensive atheromatous change. No gross evidence for bowel obstruction. Large amount of stool in the colon. Sigmoid diverticulosis without CT evidence for diverticulitis. Enlargement of the prostate. IMPRESSION: Extensive osseous metastases. Large amount of stool in the colon. Sigmoid diverticulosis without CT evidence for diverticulitis. Small hiatal hernia. Nonobstructing right renal calculus TECHNICAL DOCUMENTATION: Quality ID # [id number]: Final reports with documentation of one or more dose reduction techniques (e.g., Automated exposure control, adjustment of the mA and/or kV according to patient size, use of iterative reconstruction technique) copyright 2011 [employer]- All Rights Reserved
--- NOTE | 2019-08-14 05:59 | RADIOLOGY REPORT (SQ) ---
EXAM DESCRIPTION: X-ray single view chest. CLINICAL HISTORY: 88 years Male, shortness of breath COMPARISON: 06/19/2018 and 02/26/2017 TECHNIQUE: Single portable x-ray view of the chest performed on 08/14/2019 at 5:11 AM FINDINGS: The lungs are relatively well expanded. The radiograph is lordotic in position. There appears to be mild volume loss in the right lung base which may be due to fibrosis and/or atelectasis. There is a subtle retrocardiac opacity likely due to a hiatal hernia. There is a questionable parenchymal opacity in the right upper lobe possibly representing an inflammatory infiltrate. There is no evidence of a pneumothorax. The cardiac silhouette is stable and appears enlarged. The mediastinal contours are normal. No acute osseous abnormality is identified. There is an old healed fracture of the left clavicle. No focal soft tissue abnormalities are seen. Lines and tubes: There is a metallic stent in the region of the aortic valve. IMPRESSION: 1. Lordotic positioning of the radiograph. 2. Suspect atelectasis and/or fibrosis in the right lung base. 3. Vague retrocardiac opacity most consistent with a hiatal hernia. 4. Metallic stent in the region of the aortic valve. 5. Questionable parenchymal opacity in the right upper lobe which could represent an inflammatory infiltrate.
[2019-08-14 06:22] LABS: APPEARANCE,URINE CLEAR; BILIRUBIN,URINE NEGATIVE (NEGATIVE); COLOR,URINE YELLOW; GLUCOSE, URINE 50 mg/dL (NEGATIVE); KETONES,URINE NEGATIVE (NEGATIVE); LEUKOCYTE ESTERASE,URINE NEGATIVE (NEGATIVE); NITRITE,URINE NEGATIVE (NEGATIVE); PROTEIN,URINE 100 mg/dL (NEGATIVE); URINE SPECIFIC GRAVITY 1.014; UROBILINOGEN,URINE NEGATIVE mg/dL (<2.0)
[2019-08-14] MEDS ORDERED: LEVALBUTEROL HCL NEB 0.63 MG/3 ML AMPUL NEB PRN (06:55)
[2019-08-14] MEDS ORDERED: PROMETHAZINE HCL INJ 25 MG/1 ML VIAL IV PRN (06:55)
--- NOTE | 2019-08-14 06:55 | PDOC H&P ---
History of Present Illness Admission Date/PCP: 08/14/2019 06:33 SHAILA LOPEZ MD Patient complains of: Vomiting History of Present Illness: MATTEO RAIN is a 88 year old male who presented to the emergency room with a 12-hour history of nausea and vomiting. Patient admits that he developed nausea and vomiting on the evening of 08/13/2019 and while having a severe nausea attack leaned over the bed in order to vomit on the floor and slid off the bed onto the floor, and was subsequently unable to get up. The patient admits that his had the same symptoms within the last 24 hours, which spontaneously resolved. He admits generalized weakness and malaise has associated symptoms for his nausea. He admits prior similar episodes with gastroenteritis/stomach flu. He denies other associated or accompanying signs and symptoms. He has not identified any aggravating or ameliorating factors for his nausea and vomiting. EMS was summoned and brought the patient to the hospital after they performed a field lactic acid screen which was positive and then they administered a gram of Rocephin Tylenol, Zofran and IV fluids. In the emergency room patient was found to have a lactic acid that was elevated but no other clear signs of sepsis. Blood and urine cultures were obtained in the ER although they will be of little value since the patient was administered antibiotics by the EMS. Patient was subsequently admitted to observation bed assignment status for further evaluation and treatment. Past Medical History Cardiac Medical History: Reports: Atrial Fibrillation, Hyperlipidema, Heart Murmur - Aortic valvular disease Pulmonary Medical History: Reports: Chronic Obstructive Pulmonary Disease (COPD), Pneumonia, Sleep Apnea EENT Medical History: Reports: Cataracts Denies: Ears - Hearing aids Neurological Medical History: Denies: Hemorrhagic CVA, Ischemic CVA, Seizures Endocrine Medical History: Reports: Diabetes Mellitus Type 2 Denies: Diabetes Mellitus Type 1, Hyperthyroidism, Hypothyroidism Renal/ Medical History: Reports: Chronic Kidney Disease, Nephrolithiasis Malignancy Medical History: Reports: Skin Cancer, Other - Prostate cancer GI Medical History: Reports: Gastroesophageal Reflux Disease Denies: Cirrhosis, Crohn's Disease, Hepatitis, Ulcerative Colitis Musculoskeltal Medical History: Reports: Arthritis, Gout Skin Medical History: Denies: Eczema, Psoriasis Psychiatric Medical History: Reports: Depression Denies: Alcohol Dependency, Substance Abuse, Tobacco Dependency Traumatic Medical History: Reports: None Hematology: Reports: Anemia Denies: Bleeding Tendencies Infectious Medical History: Reports: Methicillin-Resistant Staph Aureus - Pneumonia in 2010 Past Surgical History Past Surgical History: Reports: Cardiac Catheterization, Orthopedic Surgery - Left knee prosthesis 1995, right knee prosthesis x2 since 1999. Cataract, Valve Replacement - Aortic valve Social History Information Source: Patient Lives with: Family Smoking Status: Former Smoker Electronic Cigarette use?: No Frequency of Alcohol Use: Rare Hx Recreational Drug Use: No Drugs: None Hx Prescription Drug Abuse: No - Advance Directive Resuscitation Status: Full Code Surrogate healthcare decision maker:: Diamond Herrera Family History Family History: Other - both parents of "old age". denies: CAD, DM, Hypertension, Malignancy Parental Family History Reviewed: Yes Children Family History Reviewed: No Sibling(s) Family History Reviewed.: Yes Medication/Allergy Home Medications: Antiox.mv No.10/Omeg3s/Lut/Fidencio [I-Caps with Lutein-[place] 3 Sfg] 1 cap PO BID 07/06/13 Azathioprine [Imuran 50 mg Tablet] 150 mg PO DAILY 07/06/13 Biotin [Nail-Ex 2500 mcg Tablet] 1 tab PO DAILY 07/06/13 Cyanocobalamin (Vitamin B-12) [Vitamin B-12] 1,000 mcg PO DAILY 07/06/13 Prednisone 15 mg PO Q2D 07/06/13 Rivaroxaban [Xarelto 15 mg Tablet] 15 mg PO DAILY 07/06/13 Bupropion HCl [Wellbutrin Xl 300mg 24hr Tablet] 300 mg PO DAILY 11/07/16 Calcium Carbonate 500 mg PO BID 11/07/16 Colchicine [Mitigare] 0.6 mg PO DAILY 11/07/16 Gabapentin 100 mg PO QPM 11/07/16 Metformin HCl 1,000 mg PO Q12 11/07/16 Psyllium Husk (with Sugar) [Metamucil Packet] 1 packet PO DAILY 11/07/16 Allergies/Adverse Reactions: acetaminophen [From Percocet] Allergy (Verified 06/19/18 17:53) bumetanide [From Bumex] Allergy (Verified 06/19/18 17:53) ivermectin [Ivermectin] Allergy (Verified 06/19/18 17:53) oxycodone HCl [From Percocet] Allergy (Verified 06/19/18 17:53) valsartan [From Diovan] Allergy (Verified 06/19/18 17:53) Review of Systems Constitutional: PRESENT: weakness - Generalized, other - Generalized malaise. ABSENT: chills, fever(s) Eyes: ABSENT: visual disturbances, other - Eye pain Ears: ABSENT: hearing changes, other - Ear pain Nose, Mouth, and Throat: ABSENT: headache(s), mouth pain, sore throat Cardiovascular: ABSENT: chest pain, palpitations Respiratory: ABSENT: cough, dyspnea Gastrointestinal: PRESENT: as per HPI, nausea, vomiting. ABSENT: abdominal pain, constipation, diarrhea Genitourinary: ABSENT: dysuria, hematuria Musculoskeletal: ABSENT: back pain, joint swelling Integumentary: ABSENT: pruritus, rash Neurological: ABSENT: confusion, convulsions, focal weakness, memory loss, syncope Psychiatric: ABSENT: anxiety, depression Endocrine: ABSENT: cold intolerance, heat intolerance Hematologic/Lymphatic: ABSENT: easy bleeding, easy bruising Allergic/Immunologic: ABSENT: seasonal rhinorrhea Physical Exam Vital Signs: Temp Pulse Resp BP Pulse Ox 99.0 F 111 H 16 121/54 L 96 08/14/19 04:01 08/14/19 00:35 08/14/19 04:01 08/14/19 04:01 08/14/19 04:01 Intake & Output 08/12/19 08/13/19 08/14/19 23:59 23:59 23:59 Weight 87.317 kg General appearance: PRESENT: no acute distress, cooperative, obese Head exam: PRESENT: atraumatic, normocephalic Eye exam: PRESENT: conjunctiva pink. ABSENT: conjunctival injection, scleral icterus Ear exam: PRESENT: normal external ear exam. ABSENT: bleeding, drainage Mouth exam: PRESENT: dry mucosa, neck supple Neck exam: ABSENT: thyromegaly, tracheal deviation Respiratory exam: PRESENT: clear to auscultation elizabeth, symmetrical, unlabored Cardiovascular exam: PRESENT: RRR, systolic murmur - Grade 1/6 systolic murmur heard best at the aortic root. ABSENT: clicks, gallop, rubs Pulses: PRESENT: normal radial pulses, normal dorsalis pedis pul Vascular exam: PRESENT: normal capillary refill. ABSENT: pallor GI/Abdominal exam: PRESENT: diminished bowel sounds - Sluggish and hypoactive bowel sounds, distended - Mildly distended, hypoactive bowel sounds, soft. ABSENT: tenderness Rectal exam: PRESENT: deferred Extremities exam: ABSENT: joint swelling, pedal edema Musculoskeletal exam: ABSENT: deformity, dislocation Neurological exam: PRESENT: alert, oriented to person, oriented to place, oriented to time, oriented to situation, CN II-XII grossly intact. ABSENT: motor sensory deficit Psychiatric exam: PRESENT: appropriate affect, normal mood Skin exam: PRESENT: dry, intact, warm. ABSENT: jaundice, rash, urticaria Results Laboratory Results: 08/13/19 23:45 08/13/19 23:45 08/13/19 08/13/19 08/14/19 23:45 23:45 01:33 WBC 11.3 H RBC 3.21 L Hgb 11.3 L Hct 33.7 L MCV 105 H MCH 35.2 H MCHC 33.5 RDW 15.9 H Plt Count 219 Seg Neutrophils % Not Reportable VBG pH 7.46 H VBG pCO2 32.1 L VBG HCO3 22.1 VBG Base Excess -1.2 Sodium 139.9 Potassium 4.1 Chloride 102 Carbon Dioxide 21 L Anion Gap 17 BUN 35 H Creatinine 1.79 H Est GFR ( Amer) 44 L Glucose 192 H Lactic Acid Calcium 8.6 Total Bilirubin 0.5 AST 29 Alkaline Phosphatase 83 Total Protein 7.1 Albumin 4.2 Lipase Urine Color Urine Appearance Urine pH Ur Specific Bennett Urine Protein Urine Glucose (UA) Urine Ketones Urine Blood Urine Nitrite Ur Leukocyte Esterase Urine WBC (Auto) Urine RBC (Auto) 08/14/19 08/14/19 08/14/19 01:33 01:53 03:57 WBC RBC Hgb Hct MCV MCH MCHC RDW Plt Count Seg Neutrophils % VBG pH VBG pCO2 VBG HCO3 VBG Base Excess Sodium Potassium Chloride Carbon Dioxide Anion Gap BUN Creatinine Est GFR ( Amer) Glucose Lactic Acid 3.5 H 4.5 H Calcium Total Bilirubin AST Alkaline Phosphatase Total Protein Albumin Lipase Urine Color YELLOW Urine Appearance CLEAR Urine pH 7.0 Ur Specific Bennett 1.014 Urine Protein 100 H Urine Glucose (UA) 50 H Urine Ketones NEGATIVE Urine Blood NEGATIVE Urine Nitrite NEGATIVE Ur Leukocyte Esterase NEGATIVE Urine WBC (Auto) 0 Urine RBC (Auto) 1 08/14/19 03:57 WBC RBC Hgb Hct MCV MCH MCHC RDW Plt Count Seg Neutrophils % VBG pH VBG pCO2 VBG HCO3 VBG Base Excess Sodium Potassium Chloride Carbon Dioxide Anion Gap BUN Creatinine Est GFR ( Amer) Glucose Lactic Acid Calcium Total Bilirubin AST Alkaline Phosphatase Total Protein Albumin Lipase 183.6 Urine Color Urine Appearance Urine pH Ur Specific Bennett Urine Protein Urine Glucose (UA) Urine Ketones Urine Blood Urine Nitrite Ur Leukocyte Esterase Urine WBC (Auto) Urine RBC (Auto) 08/14/19 03:57 Troponin I < 0.012 NT-Pro-B Natriuret Pep 1300 H Impressions: Abdomen/Pelvis CT 08/14/19 03:48 IMPRESSION: Extensive osseous metastases. Large amount of stool in the colon. Sigmoid diverticulosis without CT evidence for diverticulitis. Small hiatal hernia. Nonobstructing right renal calculus TECHNICAL DOCUMENTATION: Quality ID # [id number]: Final reports with documentation of one or more dose reduction techniques (e.g., Automated exposure control, adjustment of the mA and/or kV according to patient size, use of iterative reconstruction technique) copyright 2011 [employer]- All Rights Reserved Chest X-Ray 08/14/19 03:51 IMPRESSION: 1. Lordotic positioning of the radiograph. 2. Suspect atelectasis and/or fibrosis in the right lung base. 3. Vague retrocardiac opacity most consistent with a hiatal hernia. 4. Metallic stent in the region of the aortic valve. 5. Questionable parenchymal opacity in the right upper lobe which could represent an inflammatory infiltrate. Assessment and Plan - Diagnosis (1) Acute gastroenteritis Is this a current diagnosis for this admission?: Yes (2) Malaise Is this a current diagnosis for this admission?: Yes (3) Generalized weakness Is this a current diagnosis for this admission?: Yes (4) Lactic acidosis Is this a current diagnosis for this admission?: Yes (5) Systemic inflammatory response syndrome (SIRS) Is this a current diagnosis for this admission?: Yes (6) Fall Qualifiers: Encounter type: initial encounter Qualified Code(s): W19.XXXA - Unspecified fall, initial encounter Is this a current diagnosis for this admission?: Yes (7) Chronic kidney disease, stage III (moderate) Is this a current diagnosis for this admission?: Yes (8) Diabetes mellitus type 2 in obese Is this a current diagnosis for this admission?: Yes - Plan Summary Summary: Patient is admitted to the medical floor where he will receive routine supportive and symptomatic cares. He will be treated with maintenance level IV fluids and aclear liquid diet with advancement as tolerated will be employed. Serial lactic acid levels be performed. Serial CBCs and metabolic profiles will also be performed. No further antibiotics will be administered at my order. Physical therapy will be consulted. Neurochecks will be performed every 4 hours due to the patient's fall. - Time Time Spent with patient: 15-24 minutes Medications reviewed and adjusted accordingly: Yes Anticipated discharge: Home - Inpatient Certification Based on my medical assessment, after consideration of the patient's comorbidities, presenting symptoms, or acuity I expect that the services needed warrant INPATIENT care.: No I certify that my determination is in accordance with my understanding of Medicare's requirements for reasonable and necessary INPATIENT services [42 CFR 412.3e].: No Medical Necessity: Need for Neurological Checks
[2019-08-14] MEDS ORDERED: ACETAMINOPHEN 325 MG TABLET PO PRN (07:01)
[2019-08-14] MEDS ORDERED: ACETAMINOPHEN 650 MG SUPP.RECT PR PRN (07:01)
[2019-08-14] MEDS: RINGERS SOLUTION,LACTATED 1,000 ML IV PRN ×2 (08:57→16:30)
[2019-08-14] MEDS: PANTOPRAZOLE SODIUM 40 MG VIAL IV SCH ×2 (09:37→21:48)
[2019-08-14] MEDS ORDERED: DEXTROSE 40% GEL 15 GM TUBE X 2 PO PRN (12:00)
[2019-08-14] MEDS ORDERED: DEXTROSE 50%-WATER SYRINGE 25 GM/50 ML DOSE IV PRN (12:00)
[2019-08-14] MEDS ORDERED: DEXTROSE 50%-WATER SYRINGE 12.5 GM/25 ML DOSE IV PRN (12:00)
[2019-08-14] MEDS ORDERED: DEXTROSE 40% GEL 15 GM TUBE PO PRN (12:00)
[2019-08-14] MEDS ORDERED: GLUCAGON,HUMAN RECOMB 1 MG INJ IM PRN (12:00)
[2019-08-14] MEDS ORDERED: INSULIN LISPRO 100 UNIT/ML 3 ML VIAL SUBCUT ONE (12:15)
[2019-08-14] MEDS ORDERED: HEPARIN SOD (PORCINE) 5,000 UNIT/ML 1 ML VIAL SUBCUT SCH (14:00)
[2019-08-14] MEDS: INSULIN LISPRO 100 UNIT/ML 3 ML VIAL SUBCUT SCH ×2 (16:30→21:44)
[2019-08-14] MEDS ORDERED: GLIMEPIRIDE 4 MG TABLET PO PRN (17:47)
[2019-08-14] MEDS ORDERED: (PENDING PHARMACY ID) (Calcium Carbonate [Calcium] 600 MG) PO SCH (18:00)
[2019-08-14] MEDS: HUM INSULIN NPH/REG INSULIN HM 100 UNIT/1 ML 3 ML SUBCUT SCH (19:02)
[2019-08-14] MEDS: CALCIUM CARBONATE 500 MG TABLET PO SCH (19:03)
--- NOTE | 2019-08-14 19:28 | EKG REPORT ---
SEVERITY:- ABNORMAL ECG - SINUS TACHYCARDIA RBBB AND LAFB PROBABLE LEFT VENTRICULAR HYPERTROPHY : Confirmed by: Estefani Lynn MD 14-Aug-2019 19:27:41
[2019-08-14] MEDS: ATORVASTATIN CALCIUM 10 MG TABLET PO SCH (21:48)
[2019-08-14] MEDS ORDERED: FLUTICASONE PROPIONATE HFA 110 MCG/PUFF 12 GM MDI IH ONE (22:07)
[2019-08-15] MEDS: RINGERS SOLUTION,LACTATED 1,000 ML IV PRN (00:43)
[2019-08-15 03:29] LABS: C DIFFICILE GDH NEGATIVE (NEGATIVE)
[2019-08-15 06:21] LABS: HEMATOCRIT 23.6 % (37.9-51.0); MEAN CORPUSCULAR HEMOGLOBIN 36.1 pg (27.0-33.4); MEAN CORPUSCULAR VOLUME 103 fl (80-97); PLATELET COUNT 128 10^3/uL (150-450); RED BLOOD COUNT 2.29 10^6/uL (4.35-5.55); RED CELL DISTRIBUTION WIDTH 15.7 % (11.5-14.0); WHITE BLOOD COUNT 6.5 10^3/uL (4.0-10.5)
[2019-08-15 06:29] LABS: HEMOGLOBIN 8.3 g/dL (13.5-17.0)
[2019-08-15 06:41] LABS: ANION GAP 9 (5-19); BLOOD UREA NITROGEN 35 mg/dL (7-20); CARBON DIOXIDE 24 mmol/L (22-30); CHLORIDE 106 mmol/L (98-107); GLUCOSE 99 mg/dL (75-110); POTASSIUM 3.9 mmol/L (3.6-5.0)
[2019-08-15 06:53] LABS: CALCIUM 6.6 mg/dL (8.4-10.2)
[2019-08-15] MEDS: INSULIN LISPRO 100 UNIT/ML 3 ML VIAL SUBCUT SCH ×4 (07:55→21:22)
[2019-08-15] MEDS: NORMAL SALINE 1000 ML 1,000 ML IV PRN ×2 (08:19→14:44)
[2019-08-15] MEDS ORDERED: (PENDING PHARMACY ID) (Linagliptin [Tradjenta] 5 MG) PO SCH (10:00)
[2019-08-15] MEDS ORDERED: SITAGLIPTIN PHOSPHATE 50 MG TABLET PO SCH ×2 (10:00)
[2019-08-15] MEDS ORDERED: CHOLECALCIFEROL 50 MCG PO SCH (10:00)
[2019-08-15] MEDS: HUM INSULIN NPH/REG INSULIN HM 100 UNIT/1 ML 3 ML SUBCUT SCH ×3 (10:25→17:25)
[2019-08-15] MEDS: SITAGLIPTIN PHOSPHATE 25 MG TABLET PO SCH (10:32)
[2019-08-15] MEDS: AZATHIOPRINE 50 MG TABLET PO SCH (10:32)
[2019-08-15] MEDS: PANTOPRAZOLE SODIUM 40 MG VIAL IV SCH ×2 (10:33→21:35)
[2019-08-15] MEDS: CYANOCOBALAMIN (VITAMIN B-12) 1,000 MCG TABLET PO SCH (10:33)
[2019-08-15] MEDS: SERTRALINE HCL 50 MG TABLET PO SCH (10:33)
[2019-08-15] MEDS: RIVAROXABAN 15 MG TABLET PO SCH (10:33)
[2019-08-15] MEDS: CHOLECALCIFEROL (D3) 1,000 UNIT (25 MCG) TABLET PO SCH (10:33)
[2019-08-15] MEDS: CALCIUM CARBONATE 500 MG TABLET PO SCH ×2 (10:33→17:24)
[2019-08-15] MEDS: METOPROLOL SUCCINATE 25 MG TAB.SR.24H PO SCH (10:36)
--- NOTE | 2019-08-15 13:10 | PDOC PROGRESS REPORT ---
Subjective Progress Note for:: 08/15/19 Reason For Visit: ACUTE GASTROENTERITIS LACTIC ACIDOSIS 08/15/2019 ACute viral gastroenteritis Physical Exam Vital Signs: Temp Pulse Resp BP Pulse Ox 98.1 F 76 16 112/48 L 95 08/15/19 11:14 08/15/19 11:14 08/15/19 11:14 08/15/19 11:14 08/15/19 11:14 Intake & Output 08/14/19 08/15/19 08/16/19 06:59 06:59 06:59 Intake Total 3169 1424 Output Total 375 Balance 3169 1049 Weight 87.317 kg 77.4 kg General appearance: PRESENT: no acute distress, other - Sitting up in bed talking no distress Respiratory exam: PRESENT: clear to auscultation elizabeth. ABSENT: rales, rhonchi, wheezes Cardiovascular exam: PRESENT: RRR. ABSENT: diastolic murmur, rubs, systolic murmur GI/Abdominal exam: PRESENT: normal bowel sounds, soft. ABSENT: distended, guarding, mass, organolmegaly, rebound, tenderness Neurological exam: PRESENT: alert, awake, oriented to person, oriented to place, oriented to time, oriented to situation, CN II-XII grossly intact. ABSENT: motor sensory deficit Psychiatric exam: PRESENT: appropriate affect, normal mood. ABSENT: homicidal ideation, suicidal ideation Results Laboratory Results: 08/15/19 05:59 08/15/19 05:59 08/14/19 08/15/19 08/15/19 16:17 05:59 05:59 WBC 6.5 RBC 2.29 L Hgb 8.3 L D Hct 23.6 L MCV 103 H MCH 36.1 H MCHC 35.0 RDW 15.7 H Plt Count 128 L Sodium 139.2 Potassium 3.9 Chloride 106 Carbon Dioxide 24 Anion Gap 9 BUN 35 H Creatinine 1.97 H Est GFR ( Amer) 39 L Glucose 99 Lactic Acid 2.6 H Calcium 6.6 L* Magnesium 1.8 Albumin 08/15/19 08/15/19 08:35 08:35 WBC RBC Hgb Hct MCV MCH MCHC RDW Plt Count Sodium Potassium Chloride Carbon Dioxide Anion Gap BUN Creatinine Est GFR ( Amer) Glucose Lactic Acid 1.1 Calcium Magnesium Albumin 2.6 L 08/14/19 03:57 Troponin I < 0.012 NT-Pro-B Natriuret Pep 1300 H Impressions: Abdomen/Pelvis CT 08/14/19 03:48 IMPRESSION: Extensive osseous metastases. Large amount of stool in the colon. Sigmoid diverticulosis without CT evidence for diverticulitis. Small hiatal hernia. Nonobstructing right renal calculus TECHNICAL DOCUMENTATION: Quality ID # [id number]: Final reports with documentation of one or more dose reduction techniques (e.g., Automated exposure control, adjustment of the mA and/or kV according to patient size, use of iterative reconstruction technique) copyright 2011 [employer]- All Rights Reserved Chest X-Ray 08/14/19 03:51 IMPRESSION: 1. Lordotic positioning of the radiograph. 2. Suspect atelectasis and/or fibrosis in the right lung base. 3. Vague retrocardiac opacity most consistent with a hiatal hernia. 4. Metallic stent in the region of the aortic valve. 5. Questionable parenchymal opacity in the right upper lobe which could represent an inflammatory infiltrate. Assessment and Plan - Diagnosis (1) Acute gastroenteritis Is this a current diagnosis for this admission?: Yes (3) Diabetes mellitus type 2 in obese Is this a current diagnosis for this admission?: Yes (4) Generalized weakness Is this a current diagnosis for this admission?: Yes (5) Lactic acidosis Is this a current diagnosis for this admission?: Yes (6) Malaise Is this a current diagnosis for this admission?: Yes - Plan Summary Summary: Patient is admitted to the medical floor where he will receive routine supportive and symptomatic cares. He will be treated with maintenance level IV fluids and aclear liquid diet with advancement as tolerated will be employed. Serial lactic acid levels be performed. Serial CBCs and metabolic profiles will also be performed. No further antibiotics will be administered at my order. Physical therapy will be consulted. Neurochecks will be performed every 4 hours due to the patient's fall. 08/15/2019 This morning at shift change around 0700 patient had an episode of loose stool. Patient states he seems to have very little sphincter tone whole back is loose stool. Soon is going to record I noticed today is concerning the number of loose stools he has His states that she had the same problem [place] Aidee and day, as far as diarrhea He also states he seems to to have been getting weaker over a period of several weeks C. diff is negative Temp 98.1, pulse 76, 112/48, sat 95% on RA WBC from 11.3 to 6.5 today Serum Calcium is 6.6 and Albumin 2.6 Corrected calcium 7.72 Mag is 1.8 Changing IVF to NS, not giving anything for loose stools. Patient is holding down PO's with no vomiting. In all likely roy this is a viral gastroenteritis is contracted from his last week. - Time Time Spent with patient: 25-34 minutes
[2019-08-15] MEDS ORDERED: CALCIUM GLUCONATE 2,222 MG in DEXTROSE 5%-WATER 100 ML IV ONE (16:00)
[2019-08-15] MEDS ORDERED: METOPROLOL SUCCINATE 12.5 MG PO SCH (17:47)
[2019-08-15] MEDS ORDERED: FUROSEMIDE 20 MG TABLET PO SCH (17:47)
[2019-08-15] MEDS: ATORVASTATIN CALCIUM 10 MG TABLET PO SCH (21:35)
[2019-08-16] MEDS: NORMAL SALINE 1000 ML 1,000 ML IV PRN (04:56)
[2019-08-16] MEDS: INSULIN LISPRO 100 UNIT/ML 3 ML VIAL SUBCUT SCH ×2 (07:21→11:26)
[2019-08-16] MEDS: HUM INSULIN NPH/REG INSULIN HM 100 UNIT/1 ML 3 ML SUBCUT SCH (09:56)
[2019-08-16] MEDS: METOPROLOL SUCCINATE 25 MG TAB.SR.24H PO SCH (10:03)
[2019-08-16] MEDS: AZATHIOPRINE 50 MG TABLET PO SCH (10:03)
[2019-08-16] MEDS: SITAGLIPTIN PHOSPHATE 25 MG TABLET PO SCH (10:03)
[2019-08-16] MEDS: CHOLECALCIFEROL (D3) 1,000 UNIT (25 MCG) TABLET PO SCH (10:03)
[2019-08-16] MEDS: SERTRALINE HCL 50 MG TABLET PO SCH (10:04)
[2019-08-16] MEDS: RIVAROXABAN 15 MG TABLET PO SCH (10:04)
[2019-08-16] MEDS: CALCIUM CARBONATE 500 MG TABLET PO SCH (10:04)
[2019-08-16] MEDS: CYANOCOBALAMIN (VITAMIN B-12) 1,000 MCG TABLET PO SCH (10:04)
[2019-08-16] MEDS: PANTOPRAZOLE SODIUM 40 MG VIAL IV SCH (10:05)
[2019-08-16 11:39] VITALS: BP 93/59
[2019-08-16 14:14] LABS: ALBUMIN 2.9 g/dL (3.5-5.0)
--- NOTE | 2019-08-16 18:13 | PDOC DISCHARGE SUMMARY ---
Impression - Admit/DC Date/PCP Admission Date/Primary Care Provider: 08/14/19 06:51 SHAILA LOPEZ MD Discharge Date: 08/16/19 - Discharge Diagnosis (1) Acute gastroenteritis Is this a current diagnosis for this admission?: Yes (2) Dehydration Is this a current diagnosis for this admission?: Yes (3) Diabetes mellitus type 2 in obese Is this a current diagnosis for this admission?: Yes (4) Generalized weakness Is this a current diagnosis for this admission?: Yes (5) Lactic acidosis Is this a current diagnosis for this admission?: Yes (6) Malaise Is this a current diagnosis for this admission?: Yes - Assessment Summary: Patient is admitted to the medical floor where he will receive routine supportive and symptomatic cares. He will be treated with maintenance level IV fluids and aclear liquid diet with advancement as tolerated will be employed. Serial lactic acid levels be performed. Serial CBCs and metabolic profiles will also be performed. No further antibiotics will be administered at my order. Physical therapy will be consulted. Neurochecks will be performed every 4 hours due to the patient's fall. 08/15/2019 This morning at shift change around 0700 patient had an episode of loose stool. Patient states he seems to have very little sphincter tone whole back is loose stool. Soon is going to record I noticed today is concerning the number of loose stools he has His states that she had the same problem Fernando Aidee and Perry day, as far as diarrhea He also states he seems to to have been getting weaker over a period of several weeks C. diff is negative Temp 98.1, pulse 76, 112/48, sat 95% on RA WBC from 11.3 to 6.5 today Serum Calcium is 6.6 and Albumin 2.6 Corrected calcium 7.72 Mag is 1.8 Changing IVF to NS, not giving anything for loose stools. Patient is holding down PO's with no vomiting. In all likely roy this is a viral gastroenteritis is contracted from his last week. 08/16/2019 Only had one stool throughout the night and this was not loose and he was aware of when he needed to use the restroom Calcium was given and the corrected value at the time of discharge was 7.98 A bedside commode was ordered for the patient to be delivered tomorrow Home health order was also written for assessment for generalized weakness Patient is eating normal foods he has medically stable to be discharged I did write a prescription for Lomotil 10 tablets to use only on a as needed basis - Additional Information Resuscitation Status: Full Code Discharge Diet: Full Liquids Discharge Activity: Balance Activity w/Rest Referrals: SHAILA LOPEZ MD [Primary Care Provider] - Prescriptions: Diphenoxylate HCl/Atrop Sulf [Lomotil 2.5 mg Tablet] 1 tab PO Q6HP PRN 3 Days #10 tablet PRN Reason: Home Medications: Antiox.mv No.10/Omeg3s/Lut/Fidencio [I-Caps with Lutein-[place] 3 Sfg] 1 cap PO BID 07/06/13 Azathioprine [Imuran 50 mg Tablet] 150 mg PO DAILY 07/06/13 Cyanocobalamin (Vitamin B-12) [Vitamin B-12] 1,000 mcg PO DAILY 07/06/13 Prednisone 15 mg PO Q2D 07/06/13 Rivaroxaban [Xarelto 15 mg Tablet] 15 mg PO DAILY 07/06/13 Psyllium Husk (with Sugar) [Metamucil Packet] 1 packet PO DAILY 11/07/16 Atorvastatin Calcium [Lipitor 10 mg Tablet] 10 mg PO QHS 08/14/19 Biotin [Dino Biotin] 10,000 mcg PO DAILY 08/14/19 Calcium Carbonate [Calcium] 600 mg PO BID 08/14/19 Cholecalciferol (Vitamin D3) [Vitamin D3] 50 mcg PO DAILY 08/14/19 Furosemide [Lasix 20 mg Tablet] 20 mg PO SUTUWETHSA 08/14/19 Glimepiride [Amaryl 4 mg Tablet] 4 mg PO DAILYP PRN 08/14/19 Hum Insulin NPH/Reg Insulin Hm [Novolin 70-30 100 Unit/ml Vial] 12 unit SQ BID 08/14/19 Linagliptin [Tradjenta] 5 mg PO DAILY 08/14/19 Metoprolol Succinate [K[place]sp[place] Sprinkle] 12.5 mg PO SUTUWETHSA 08/14/19 Sertraline HCl 50 mg PO DAILY 08/14/19 Sitagliptin Phosphate [Januvia 25 mg Tablet] 25 mg PO DAILY 08/14/19 Diphenoxylate HCl/Atrop Sulf [Lomotil 2.5 mg Tablet] 1 tab PO Q6HP PRN 3 Days #10 tablet 08/16/19 History of Present Illiness History of Present Illness: MATTEO RAIN is a 88 year old male Physical Exam Vital Signs: Temp Pulse Resp BP Pulse Ox 98.5 F 79 15 93/59 L 95 08/16/19 11:42 08/16/19 11:42 08/16/19 11:42 08/16/19 11:42 08/16/19 11:42 Intake & Output 08/15/19 08/16/19 08/17/19 06:59 06:59 06:59 Intake Total 3169 4227 1240 Output Total 3075 1100 Balance 3169 1152 140 Weight 77.4 kg 78.3 kg Results Laboratory Results: WBC 6.5 10^3/uL (4.0-10.5) 08/15/19 05:59 RBC 2.29 10^6/uL (4.35-5.55) L 08/15/19 05:59 Hgb 8.3 g/dL (13.5-17.0) L D 08/15/19 05:59 Hct 23.6 % (37.9-51.0) L 08/15/19 05:59 MCV 103 fl (80-97) H 08/15/19 05:59 MCH 36.1 pg (27.0-33.4) H 08/15/19 05:59 MCHC 35.0 g/dL (32.0-36.0) 08/15/19 05:59 RDW 15.7 % (11.5-14.0) H 08/15/19 05:59 Plt Count 128 10^3/uL (150-450) L 08/15/19 05:59 Lymph % (Auto) Not Reportable 08/13/19 23:45 [place] % (Auto) Not Reportable 08/13/19 23:45 Eos % (Auto) Not Reportable 08/13/19 23:45 Baso % (Auto) Not Reportable 08/13/19 23:45 Absolute Neuts (auto) Not Reportable 08/13/19 23:45 Absolute Lymphs (auto) Not Reportable 08/13/19 23:45 Absolute Monos (auto) Not Reportable 08/13/19 23:45 Absolute Eos (auto) Not Reportable 08/13/19 23:45 Absolute Basos (auto) Not Reportable 08/13/19 23:45 Total Counted 100 08/13/19 23:45 Seg Neutrophils % Not Reportable 08/13/19 23:45 Seg Neuts % (Manual) 91 % (42-78) H 08/13/19 23:45 Band Neutrophils % 2 % (3-5) L 08/13/19 23:45 Lymphocytes % (Manual) 4 % (13-45) L 08/13/19 23:45 Monocytes % (Manual) 3 % (3-13) 08/13/19 23:45 Eosinophils % (Manual) 0 % (0-6) 08/13/19 23:45 Basophils % (Manual) 0 % (0-2) 08/13/19 23:45 Abs Neuts (Manual) 10.5 10^3/uL (1.7-8.2) H 08/13/19 23:45 Abs Lymphs (Manual) 0.5 10^3/uL (0.5-4.7) 08/13/19 23:45 Abs Monocytes (Manual) 0.3 10^3/uL (0.1-1.4) 08/13/19 23:45 Absolute Eos (Manual) 0.0 10^3/uL (0.0-0.6) 08/13/19 23:45 Abs Basophils (Manual) 0.0 10^3/uL (0.0-0.2) 08/13/19 23:45 Toxic Granulation SLIGHT 08/13/19 23:45 Toxic Vacuolation PRESENT 08/13/19 23:45 Platelet Comment ADEQUATE 08/13/19 23:45 Poikilocytosis SLIGHT 08/13/19 23:45 Anisocytosis SLIGHT 08/13/19 23:45 Macrocytosis 2+ 08/13/19 23:45 Ovalocytes SLIGHT 08/13/19 23:45 [place] Cells SLIGHT 08/13/19 23:45 Schistocytes SLIGHT 08/13/19 23:45 PT 14.8 SEC (11.4-15.4) 08/13/19 23:45 INR 1.15 08/13/19 23:45 VBG pH 7.46 (7.30-7.42) H 08/14/19 01:33 VBG pCO2 32.1 mmHg (35-63) L 08/14/19 01:33 VBG HCO3 22.1 mmol/L (20-32) 08/14/19 01:33 VBG Base Excess -1.2 mmol/L 08/14/19 01:33 Sodium 139.2 mmol/L (137-145) 08/15/19 05:59 Potassium 3.9 mmol/L (3.6-5.0) 08/15/19 05:59 Chloride 106 mmol/L (98-107) 08/15/19 05:59 Carbon Dioxide 24 mmol/L (22-30) 08/15/19 05:59 Anion Gap 9 (5-19) 08/15/19 05:59 BUN 35 mg/dL (7-20) H 08/15/19 05:59 Creatinine 1.97 mg/dL (0.52-1.25) H 08/15/19 05:59 Est GFR ( Amer) 39 (>60) L 08/15/19 05:59 Est GFR (MDRD) Non-Af 32 (>60) L 08/15/19 05:59 Glucose 99 mg/dL (75-110) 08/15/19 05:59 POC Glucose 105 mg/dL (70-110) 08/16/19 11:17 Lactic Acid 1.1 mmol/L (0.7-2.1) 08/15/19 08:35 Calcium 7.0 mg/dL (8.4-10.2) L* 08/16/19 13:26 Magnesium 1.8 mg/dL (1.6-2.3) 08/15/19 05:59 Total Bilirubin 0.5 mg/dL (0.2-1.3) 08/13/19 23:45 Direct Bilirubin 0.2 mg/dL (0.0-0.4) 08/13/19 23:45 Neonat Total Bilirubin Not Reportable 08/13/19 23:45 Neonat Direct Bilirubin Not Reportable 08/13/19 23:45 Neonat Indirect Bili Not Reportable 08/13/19 23:45 AST 29 U/L (17-59) 08/13/19 23:45 ALT 19 U/L (<50) 08/13/19 23:45 Alkaline Phosphatase 83 U/L (38-126) 08/13/19 23:45 Troponin I < 0.012 ng/mL 08/14/19 03:57 NT-Pro-B Natriuret Pep 1300 pg/mL (<450) H 08/14/19 03:57 Total Protein 7.1 g/dL (6.3-8.2) 08/13/19 23:45 Albumin 2.9 g/dL (3.5-5.0) L 08/16/19 13:26 Lipase 183.6 U/L (23-300) 08/14/19 03:57 Urine Color YELLOW 08/14/19 01:53 Urine Appearance CLEAR 08/14/19 01:53 Urine pH 7.0 (5.0-9.0) 08/14/19 01:53 Ur Specific [place] 1.014 08/14/19 01:53 Urine Protein 100 mg/dL (NEGATIVE) H 08/14/19 01:53 Urine Glucose (UA) 50 mg/dL (NEGATIVE) H 08/14/19 01:53 Urine Ketones NEGATIVE mg/dL (NEGATIVE) 08/14/19 01:53 Urine Blood NEGATIVE (NEGATIVE) 08/14/19 01:53 Urine Nitrite NEGATIVE (NEGATIVE) 08/14/19 01:53 Urine Bilirubin NEGATIVE (NEGATIVE) 08/14/19 01:53 Urine Urobilinogen NEGATIVE mg/dL (<2.0) 08/14/19 01:53 Ur Leukocyte Esterase NEGATIVE (NEGATIVE) 08/14/19 01:53 Urine WBC (Auto) 0 /HPF 08/14/19 01:53 Urine RBC (Auto) 1 /HPF 08/14/19 01:53 U Hyaline Cast (Auto) 1 /LPF 08/14/19 01:53 Urine Mucus (Auto) RARE /LPF 08/14/19 01:53 Urine Ascorbic Acid 40 (NEGATIVE) H 08/14/19 01:53 Stl C. Difficile GDH Ag NEGATIVE (NEGATIVE) 08/15/19 00:30 Stl C.difficile Tox A&B NEGATIVE (NEGATIVE) 08/15/19 00:30 08/14/19 03:57 Troponin I < 0.012 NT-Pro-B Natriuret Pep 1300 H Impressions: Abdomen/Pelvis CT 08/14/19 03:48 IMPRESSION: Extensive osseous metastases. Large amount of stool in the colon. Sigmoid diverticulosis without CT evidence for diverticulitis. Small hiatal hernia. Nonobstructing right renal calculus TECHNICAL DOCUMENTATION: Quality ID # 436: Final reports with documentation of one or more dose reduction techniques (e.g., Automated exposure control, adjustment of the mA and/or kV according to patient size, use of iterative reconstruction technique) copyright 2011 [employer]- All Rights Reserved Chest X-Ray 08/14/19 03:51 IMPRESSION: 1. Lordotic positioning of the radiograph. 2. Suspect atelectasis and/or fibrosis in the right lung base. 3. Vague retrocardiac opacity most consistent with a hiatal hernia. 4. Metallic stent in the region of the aortic valve. 5. Questionable parenchymal opacity in the right upper lobe which could represent an inflammatory infiltrate. Stroke Is this a Stroke Patient?: No Acute Heart Failure - Is this a Heart Failure Patient?: No
== END 2019-08-16 15:15 | disposition home health service (06) ==
LOC: ER 00:22 → EH 06:51 → INTOOBSV 06:51 → 4W 08:46 → 4N 17:40
PROVIDERS: ADMIT Emergency Medicine; ATTEND Emergency Medicine
DX: K52.9 Noninfective gastroenteritis and colitis, unspecified (principal); E86.0 Dehydration; E66.9 Obesity, unspecified; R53.1 Weakness; E87.2 Acidosis; R53.81 Other malaise; N18.3 Chronic kidney disease, stage 3 (moderate); E11.22 Type 2 diabetes mellitus with diabetic chronic kidney disease; K57.30 Diverticulosis of large intestine without perforation or abscess without bleeding; K44.9 Diaphragmatic hernia without obstruction or gangrene; N20.0 Calculus of kidney; M10.9 Gout, unspecified; I48.20 Chronic atrial fibrillation, unspecified; I45.2 Bifascicular block; E78.5 Hyperlipidemia, unspecified; Z04.3 Encounter for examination and observation following other accident; R01.1 Cardiac murmur, unspecified; Z79.899 Other long term (current) drug therapy; Z85.46 Personal history of malignant neoplasm of prostate; Z85.828 Personal history of other malignant neoplasm of skin; Z95.2 Presence of prosthetic heart valve; Z96.653 Presence of artificial knee joint, bilateral; Z86.14 Personal history of Methicillin resistant Staphylococcus aureus infection; M19.90 Unspecified osteoarthritis, unspecified site; Z87.891 Personal history of nicotine dependence; Z79.4 Long term (current) use of insulin; Z79.01 Long term (current) use of anticoagulants
CPT/HCPCS: 93005; 99285; 96361; 96365; 36415 ×3; 87040; 82962 ×3; 82040 ×2; 82310; 83605 ×2; 83690; 83735; 85025; 85027; 85610; 80048; 80053; 81001; 84484; 82803; 87324; 87449; 83880; 71045; 74176; 93010; 94660 ×2; 97161; G0378 ×4; A9270 ×25; J0610; J1644; C9113 ×3; J3490 ×2; J7060; J7030 ×3; J7120 ×2; J2543; J1815; J7500

== ENCOUNTER 2019-08-18 18:02 | Inpatient (IN) | payer OTHER, MEDICARE ==
[2019-08-18] MEDS ORDERED: ACETAMINOPHEN 325 MG TABLET PO ONE (18:27)
[2019-08-18 18:41] LABS: MEAN CORPUSCULAR HGB CONC 34.6 g/dL (32.0-36.0); MEAN CORPUSCULAR VOLUME 104 fl (80-97); PLATELET COUNT 187 10^3/uL (150-450); RED CELL DISTRIBUTION WIDTH 16.1 % (11.5-14.0); WHITE BLOOD COUNT 18.1 10^3/uL (4.0-10.5)
[2019-08-18 18:50] LABS: INTERNATIONAL RATION (INR) 1.23; PROTHROMBIN TIME 15.6 SEC (11.4-15.4)
[2019-08-18] MEDS ORDERED: NORMAL SALINE 1000 ML 1,000 ML IV ONE (18:53)
[2019-08-18 18:59] LABS: ABSOLUTE LYMPHOCYTES# (MANUAL) 0.5 10^3/uL (0.5-4.7); ABSOLUTE MONOCYTES # (MANUAL) 1.1 10^3/uL (0.1-1.4); BAND NEUTROPHILS % (MANUAL) 2 % (3-5); BASOPHILS % (MANUAL) 0 % (0-2); EOSINOPHILS % (MANUAL) 0 % (0-6); LYMPHOCYTES % (MANUAL) 3 % (13-45); MONOCYTES % (MANUAL) 6 % (3-13); SEGMENTED NEUTROPHILS % (MAN) 89 % (42-78); TOTAL CELLS COUNTED 100
[2019-08-18 19:00] LABS: ANISOCYTOSIS 1+; PLATELET COMMENT ADEQUATE
--- NOTE | 2019-08-18 19:07 | ER Document Report ---
ED General - General Chief Complaint: General Weakness Stated Complaint: NAUSEA VOMITING Time Seen by Provider: 08/18/19 18:32 Notes: 88-year-old male presents with nausea/vomiting, abdominal pain shortness of breath, and fever. EMS was originally called out to the patient's house this morning due to fall after feeling dizzy. Patient fell onto his buttock and declined transport time. EMS was called a second time due to a second fall. Luis M zee denies head injury or LOC. Patient also states he has been having nausea/vomiting and abdominal pain that started early this morning. EMS gave patient Zofran 8 mg with resolution of nausea. Patient also states he has been having intermittent shortness of breath for the past few weeks. Patient was found to have a fever of 102.2 degrees. Patient has a history of metastatic prostate cancer. Patient was recently admitted from 08/14 to 08/16 at this hospital for nausea/vomiting and abdominal pain. Patient was diagnosed with a viral gastroenteritis and was discharged once he was feeling better. Upon initial arrival to the ER patient was found to have an elevated lactic acid. Patient denies chest pain, diarrhea, constipation, urinary symptoms. TRAVEL OUTSIDE OF THE [place] IN LAST 30 DAYS: No - Related Data Allergies/Adverse Reactions: bumetanide [From Bumex] Allergy (Verified 06/19/18 17:53) ivermectin [Ivermectin] Allergy (Verified 06/19/18 17:53) oxycodone HCl [From Percocet] Allergy (Verified 06/19/18 17:53) valsartan [From Diovan] Allergy (Verified 06/19/18 17:53) Past Medical History - Social History Smoking Status: Unknown if Ever Smoked Family History: None, Reviewed & Not Pertinent, Other - both parents of "old age" Patient has suicidal ideation: No Patient has homicidal ideation: No - Past Medical History Cardiac Medical History: Reports: Hx Atrial Fibrillation, Hx Hypercholesterolemia, Hx Heart Murmur - Aortic valvular disease Pulmonary Medical History: Reports: Hx COPD, Hx Pneumonia, Hx Sleep Apnea Neurological Medical History: Denies: Hx Seizures Endocrine Medical History: Reports: Hx Diabetes Mellitus Type 2. Denies: Hx Diabetes Mellitus Type 1, Hx Hyperthyroidism, Hx Hypothyroidism Renal/ Medical History: Denies: Hx Peritoneal Dialysis Malignancy Medical History: Reports Hx Skin Cancer GI Medical History: Reports: Hx Gastroesophageal Reflux Disease. Denies: Hx Cirrhosis, Hx Crohn's Disease, Hx Hepatitis, Hx Ulcerative Colitis Musculoskeletal Medical History: Reports Hx Arthritis, Reports Hx Gout Skin Medical History: Denies Hx Eczema, Denies Hx MRSA, Denies Hx Psoriasis Psychiatric Medical History: Reports: Hx Depression Infectious Medical History: Reports: Hx MRSA - Pneumonia in 2010. Denies: Hx Hepatitis Past Surgical History: Reports: Hx Cardiac Catheterization, Hx Orthopedic Surgery - Left knee prosthesis 1995, right knee prosthesis x2 since 1999. Cataract, Hx Valve Replacement - Aortic valve - Immunizations Hx Diphtheria, Pertussis, Tetanus Vaccination: No Hx Pneumococcal Vaccination: 08/19/05 Review of Systems - Review of Systems Notes: Constitutional: Positive for fever. HENT: Negative for sore throat. Eyes: Negative for visual changes. Cardiovascular: Negative for chest pain. Respiratory: Negative for shortness of breath. Gastrointestinal: Positive for abdominal pain, vomiting or diarrhea. Genitourinary: Negative for dysuria. Musculoskeletal: Negative for back pain. Skin: Negative for rash. Neurological: Positive for dizziness. Negative for headaches, weakness or numbness. 10 point ROS negative except as marked above and in HPI. Physical Exam - Vital signs Vitals: Temp Resp Pulse Ox 102.2 F H 27 H 95 08/18/19 18:07 08/18/19 18:07 08/18/19 18:07 - Notes Notes: GENERAL: Well-appearing, well-nourished and in no acute distress. HEAD: Atraumatic, normocephalic. EYES: Extraocular movements intact, sclera anicteric, conjunctiva are normal. NECK: Normal range of motion, supple without lymphadenopathy or JVD. LUNGS: Mildly tachypneic. Breath sounds clear to auscultation bilaterally and equal. No wheezes rales or rhonchi. HEART: Regular rate and rhythm without murmurs, rubs or gallops. ABDOMEN: Soft, tenderness to left lower quadrant. No guarding, no rebound. No masses appreciated. EXTREMITIES: Normal range of motion, no pitting or edema. No clubbing or cyanosis. NEUROLOGICAL: Cranial nerves II through XII grossly intact. Normal speech, normal gait. PSYCH: Normal mood, normal affect. SKIN: Warm, Dry, normal turgor, no rashes or lesions noted. Course - Re-evaluation Re-evalutation: 08/18/19 88-year-old male with history of metastatic cancer presents for nausea/vomiting and abdominal pain that started this morning. Patient is also complaining of intermittent shortness of breath for the past few weeks. Patient was found to have a fever of 102.2. Patient was recently admitted and discharged a few days ago for similar symptoms. Cardiac and septic work-up initiated. Tylenol was given. Patient's nausea is currently controlled with Zofran given by EMS. Patient offered analgesics but declines at this time. 08/19/19 08:33 Pt was signed out to JANAY Serna. Dr. Owusu admitted pt to hospitalist service. - Vital Signs Vital signs: Temp Pulse Resp BP Pulse Ox 99.0 F 83 21 H 114/46 L 99 08/19/19 03:54 08/19/19 06:59 08/19/19 03:54 08/19/19 03:54 08/19/19 03:54 - Laboratory Result Diagrams: 08/19/19 05:31 08/19/19 05:31 Laboratory results interpreted by me: 08/18/19 08/18/19 08/18/19 18:20 18:20 18:20 WBC 18.1 H RBC 2.50 L Hgb 9.0 L Hct 26.0 L MCV 104 H MCH 36.0 H RDW 16.1 H Seg Neuts % (Manual) 89 H Band Neutrophils % 2 L Lymphocytes % (Manual) 3 L Abs Neuts (Manual) 16.5 H PT 15.6 H VBG pCO2 Carbon Dioxide 20 L BUN 21 H Creatinine 1.96 H Est GFR ( Amer) 39 L Est GFR (MDRD) Non-Af 32 L Glucose 150 H Calcium 7.2 L NT-Pro-B Natriuret Pep Albumin 3.3 L Urine Protein Urine Blood Urine Ascorbic Acid 08/18/19 08/18/19 08/18/19 18:20 19:41 19:41 WBC RBC Hgb Hct MCV MCH RDW Seg Neuts % (Manual) Band Neutrophils % Lymphocytes % (Manual) Abs Neuts (Manual) PT VBG pCO2 34.8 L Carbon Dioxide BUN Creatinine Est GFR ( Amer) Est GFR (MDRD) Non-Af Glucose Calcium NT-Pro-B Natriuret Pep 1480 H Albumin Urine Protein 100 H Urine Blood SMALL H Urine Ascorbic Acid 40 H Discharge - Discharge Clinical Impression: Abdominal pain Qualifiers: Abdominal location: left lower quadrant Qualified Code(s): R10.32 - Left lower quadrant pain Leukocytosis Qualifiers: Leukocytosis type: unspecified Qualified Code(s): D72.829 - Elevated white blood cell count, unspecified Fever Qualifiers: Fever type: unspecified Qualified Code(s): R50.9 - Fever, unspecified Nausea & vomiting Qualifiers: Vomiting type: unspecified Vomiting Intractability: unspecified Qualified Code(s): R11.2 - Nausea with vomiting, unspecified Disposition: ADMITTED INPATIENT
[2019-08-18 19:09] LABS: ALBUMIN 3.3 g/dL (3.5-5.0); ALKALINE PHOSPHATASE 73 U/L (38-126); ANION GAP 12 (5-19); ASPARTATE AMINO TRANSFERASE 24 U/L (17-59); BILIRUBIN,DIRECT 0.2 mg/dL (0.0-0.4); BILIRUBIN,TOTAL 0.4 mg/dL (0.2-1.3); BLOOD UREA NITROGEN 21 mg/dL (7-20); CALCIUM 7.2 mg/dL (8.4-10.2); CARBON DIOXIDE 20 mmol/L (22-30); CHLORIDE 106 mmol/L (98-107); GLUCOSE 150 mg/dL (75-110); POTASSIUM 3.8 mmol/L (3.6-5.0); TOTAL PROTEIN 6.3 g/dL (6.3-8.2)
--- NOTE | 2019-08-18 19:14 | RADIOLOGY REPORT (SQ) ---
EXAM DESCRIPTION: CHEST SINGLE VIEW COMPLETED DATE/TIME: 08/18/2019 6:46 pm REASON FOR STUDY: fever COMPARISON: 08/14/2019 EXAM PARAMETERS: NUMBER OF VIEWS: One view. TECHNIQUE: Single frontal radiographic view of the chest acquired. RADIATION DOSE: NA LIMITATIONS: None. FINDINGS: LUNGS AND PLEURA: Pulmonary vascular congestion. No emmanuel pulmonary edema. No infiltrate , effusion, or mass. MEDIASTINUM AND HILAR STRUCTURES: No masses. Contour normal. HEART AND VASCULAR STRUCTURES: Cardiomegaly. No emmanuel pulmonary edema. BONES: No acute findings. HARDWARE: None in the chest. OTHER: No other significant finding. IMPRESSION: Cardiomegaly with pulmonary vascular congestion but no emmanuel pulmonary edema. TECHNICAL DOCUMENTATION: JOB ID: [id number] [employer]- All Rights Reserved Reading location - IP/workstation name: [email or web address]
--- NOTE | 2019-08-18 19:15 | EKG REPORT ---
SEVERITY:- ABNORMAL ECG - SINUS OR ECTOPIC ATRIAL TACHYCARDIA PROBABLE LEFT ATRIAL ABNORMALITY RBBB AND LAFB : Confirmed by: Cale Carrillo MD 18-Aug-2019 19:15:09
[2019-08-18 20:01] LABS: APPEARANCE,URINE CLEAR; BILIRUBIN,URINE NEGATIVE (NEGATIVE); COLOR,URINE YELLOW; GLUCOSE, URINE NEGATIVE (NEGATIVE); KETONES,URINE NEGATIVE (NEGATIVE); LEUKOCYTE ESTERASE,URINE NEGATIVE (NEGATIVE); NITRITE,URINE NEGATIVE (NEGATIVE); PROTEIN,URINE 100 mg/dL (NEGATIVE); URINE SPECIFIC GRAVITY 1.012; UROBILINOGEN,URINE NEGATIVE mg/dL (<2.0)
[2019-08-18 20:02] LABS: VENOUS BLOOD BASE EXCESS -3.6 mmol/L; VENOUS BLOOD HCO3 20.6 mmol/L (20-32); VENOUS BLOOD PCO2 34.8 mmHg (35-63); VENOUS BLOOD PH 7.39 (7.30-7.42)
--- NOTE | 2019-08-18 20:45 | RADIOLOGY REPORT (SQ) ---
EXAM DESCRIPTION: CT ABDOMEN PELVIS WITHOUT IV CONTRAST COMPLETED DATE/TME: 08/18/2019 19:36 CLINICAL HISTORY: 88 years, Male, LLQ pain, n/v, fever, renal dz, r/o diverticulitis COMPARISON: Prior study from 08/14/2019 TECHNIQUE: Noncontrast CT of the abdomen/pelvis was performed. Coronal and sagittal reformations were created. Images stored on PACS. All CT scanners at this facility use dose modulation, iterative reconstruction, and/or weight based dosing when appropriate to reduce radiation dose to as low as reasonably achievable (ALARA). [facility]: Dose Right [facility]: CareDose [facility]: Dose Right [facility]: Teradose 4D [facility]: [employer] LIMITATIONS: None. FINDINGS: Limited evaluation of the lower chest reveals trace bilateral pleural effusions with associated bibasilar atelectasis. Aortic valve replacement is noted. Heart is enlarged. There is a trace pericardial effusion. In addition, there is a moderately sized hiatal hernia. Liver, spleen, pancreas, and both adrenal glands appear normal. Gallbladder shows no suspicious abnormality. Suspect 5 mm calculus located within the interpolar region of the right kidney. Both kidneys are otherwise normal in their noncontrast appearance. No hydronephrosis or hydroureter. The urinary bladder is partially collapsed, thus its evaluation is limited. Bilateral fat-containing inguinal hernias are noted. Circumferential wall thickening is noted about the distal descending/proximal sigmoid colon in association with adjacent inflammatory stranding. No extraluminal free air or adjacent drainable fluid collection is identified. This is new from the previous examination dated 08/14/2019. Otherwise, no evidence of bowel obstruction. Appendix is normal. Calcifications are evident about the abdominal aorta and proximal iliac vessels. No lymphadenopathy. Bone windows show several scattered sclerotic densities located throughout the visualized portions of the bony thorax, thoracic spine, lumbar spine, and bony pelvis. IMPRESSION: Findings are consistent with acute, uncomplicated diverticulitis involving the distal descending/proximal sigmoid colon. Widespread osseous metastatic disease. Moderately sized hiatal hernia. Trace bilateral pleural effusions with bibasilar consolidation, presumably atelectasis. Nonobstructive right nephrolithiasis. TECHNICAL DOCUMENTATION: Quality ID # 436: Final reports with documentation of one or more dose reduction techniques (e.g., Automated exposure control, adjustment of the mA and/or kV according to patient size, use of iterative reconstruction technique) copyright 2011 [employer]- All Rights Reserved
--- NOTE | 2019-08-18 20:49 | RADIOLOGY REPORT (SQ) ---
EXAM DESCRIPTION: CT HEAD WITHOUT INTRAVENOUS CONTRAST CLINICAL HISTORY: Fall. Head trauma. Dizziness. Patient is on blood thinner.. COMPARISON: 06/19/2018. TECHNIQUE: CT of the head was performed without intravenous contrast .This exam was performed according to our departmental dose-optimization program, which includes automated exposure control, adjustment of the mA and/or KV according to the patient's size and/or use of iterative reconstruction technique. FINDINGS: Moderate central and cortical atrophy. Advanced periventricular white matter disease. 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 Atherosclerotic disease. No acute intra-axial or extra-axial abnormalities are seen. Mastoid air cells, paranasal sinuses and bony calvarium are unremarkable. IMPRESSION: Atrophy. Advanced white matter disease. 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 There are no acute intracranial findings.
--- NOTE | 2019-08-18 21:07 | ER Document Report ---
ED General - General Chief Complaint: General Weakness Stated Complaint: NAUSEA VOMITING Time Seen by Provider: 08/18/19 18:32 Primary Care Provider: SHAILA LOPEZ MD [Primary Care Provider] - Follow up as needed TRAVEL OUTSIDE OF THE [place] IN LAST 30 DAYS: No - Related Data Allergies/Adverse Reactions: bumetanide [From Bumex] Allergy (Verified 06/19/18 17:53) ivermectin [Ivermectin] Allergy (Verified 06/19/18 17:53) oxycodone HCl [From Percocet] Allergy (Verified 06/19/18 17:53) valsartan [From Diovan] Allergy (Verified 06/19/18 17:53) Past Medical History - Social History Smoking Status: Unknown if Ever Smoked Family History: None, Reviewed & Not Pertinent, Other - both parents of "old age" Patient has suicidal ideation: No Patient has homicidal ideation: No - Past Medical History Cardiac Medical History: Reports: Hx Atrial Fibrillation, Hx Hypercholesterolemia, Hx Heart Murmur - Aortic valvular disease Pulmonary Medical History: Reports: Hx COPD, Hx Pneumonia, Hx Sleep Apnea Neurological Medical History: Denies: Hx Seizures Endocrine Medical History: Reports: Hx Diabetes Mellitus Type 2. Denies: Hx Diabetes Mellitus Type 1, Hx Hyperthyroidism, Hx Hypothyroidism Renal/ Medical History: Denies: Hx Peritoneal Dialysis Malignancy Medical History: Reports Hx Skin Cancer GI Medical History: Reports: Hx Gastroesophageal Reflux Disease. Denies: Hx Cirrhosis, Hx Crohn's Disease, Hx Hepatitis, Hx Ulcerative Colitis Musculoskeletal Medical History: Reports Hx Arthritis, Reports Hx Gout Skin Medical History: Denies Hx Eczema, Denies Hx MRSA, Denies Hx Psoriasis Psychiatric Medical History: Reports: Hx Depression Infectious Medical History: Reports: Hx MRSA - Pneumonia in 2010. Denies: Hx Hepatitis Past Surgical History: Reports: Hx Cardiac Catheterization, Hx Orthopedic Surgery - Left knee prosthesis 1995, right knee prosthesis x2 since 1999. Cataract, Hx Valve Replacement - Aortic valve - Immunizations Hx Diphtheria, Pertussis, Tetanus Vaccination: No Hx Pneumococcal Vaccination: 08/19/05 Physical Exam - Vital signs Vitals: Temp Resp Pulse Ox 102.2 F H 27 H 95 08/18/19 18:07 08/18/19 18:07 08/18/19 18:07 - Notes Notes: Patient was brought in by paramedics with a complaint of weakness has been going on all day. First episode was this morning when he was sitting on the toilet. He was leaning forward and felt weak and slid off the toilet onto the ground. He was unable to get up. He had no preceding chest pain or palpitations did not hit his head. Paramedics were called and with assistance he was able to ambulate to his bed and seemed to be fine. said he has had some weakness throughout the day but has been able to ambulate with assistance. Tonight he was sitting on the toilet developed generalized weakness and slid off the toilet onto the ground again and she could not get him up. Again did not have any chest pain or palpitations with this. And he did not hit his head. At this time he denies any headaches neck pain chest pain shortness of breath nausea vomiting or abdominal pain. Patient was discharged from hospital 2 days ago was admitted for 2 days for a viral gastroenteritis and dehydration. said he was doing well yesterday he has increasing weakness. Appetite has been decreased today not had any nausea or vomiting abdominal pain or diarrhea no URI symptoms cough or congestion. said he felt warm today but she take his temperature. reports that when his myasthenia gravis flares up he gets generalized weakness of his eyelids but has not noticed any droopiness of his eyelids His medical history seen for hypertension COPD elevated cholesterol diabetes coronary artery disease with stent A. fib as well as a aortic valve replacement. He is not on anticoagulation. 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 Also has a history of myasthenia gravis His medications says he is on prednisone and Imuran for his myasthenia gravis not on any anticoagulant Social history he used to smoke and drink but quit Review of systems pertinent positives and negatives in HPI otherwise all the systems were reviewed and acutely negative PHYSICIAN EXAM -vital signs are noted triage note and note from triage reviewed GENERAL: Well-appearing, well-nourished and in __no acute distress she looks chronically ill____ HEAD: Atraumatic, normocephalic. EYES: Pupils equal round and reactive to light, extraocular movements intact, sclera anicteric, conjunctiva are normal. ENT: nares patent, oropharynx clear without exudates. Slightly dry mucous membr anes. Nontender Patient was ambulated around the department with his normal baseline 2 L of oxygen. He remained around 88 but did drop as low as 80-83 with a good pleth. Patient had increased work of breathing. Once he was returned back to his bed, his oxygen improved to 92%. NECK: supple without lymphadenopathy neck is nontender midline with full range of motion LUNGS: Breath sounds are clear with a few crackles in the bases. There is no respiratory distress HEART: Rapid rate regular rhythm ABDOMEN: Soft, nontender, normoactive bowel sounds. EXTREMITIES: No deformity, no edema. NEUROLOGICAL: He is alert and oriented x4 answers all questions appropriately but he seems a little slow to answer. Speech is clear I do not see any droopy eyelids motor strength is 5/5 bilaterally of lower extremities his toes are downgoing is got a negative Romberg PSYCH: Normal mood, normal affect. Differential diagnose includes dehydration no electrolytes infection sepsis exacerbation of his myasthenia gravis SKIN: Warm, Dry, normal turgor, no rashes or lesions noted. BACK-nontender in the midline Course - Re-evaluation Re-evalutation: 08/18/19 21:45 ED patient is remained stable he was given small amount of IV fluids blood cultures were obtained and started on antibiotics Medical decision making patient presents with fever and generalized weakness has evidence of diverticulitis and will need admission to the hospital have consulted hospitalist I discussed results of laboratory findings and diagnostic test with patient/family. The treatment plan was explained and I reviewed the discharge instructions with them. Questions were answered. The patient/family verbalizes understanding - Vital Signs Vital signs: Temp Pulse Resp BP Pulse Ox 98.7 F 21 H 151/60 H 95 08/18/19 19:48 08/18/19 21:00 08/18/19 19:01 08/18/19 21:00 - Laboratory Result Diagrams: 08/18/19 18:20 08/18/19 18:20 Laboratory results interpreted by me: 08/18/19 08/18/19 08/18/19 18:20 18:20 18:20 WBC 18.1 H RBC 2.50 L Hgb 9.0 L Hct 26.0 L MCV 104 H MCH 36.0 H RDW 16.1 H Seg Neuts % (Manual) 89 H Band Neutrophils % 2 L Lymphocytes % (Manual) 3 L Abs Neuts (Manual) 16.5 H PT 15.6 H VBG pCO2 Carbon Dioxide 20 L BUN 21 H Creatinine 1.96 H Est GFR ( Amer) 39 L Est GFR (MDRD) Non-Af 32 L Glucose 150 H Calcium 7.2 L NT-Pro-B Natriuret Pep Albumin 3.3 L Urine Protein Urine Blood Urine Ascorbic Acid 08/18/19 08/18/19 08/18/19 18:20 19:41 19:41 WBC RBC Hgb Hct MCV MCH RDW Seg Neuts % (Manual) Band Neutrophils % Lymphocytes % (Manual) Abs Neuts (Manual) PT VBG pCO2 34.8 L Carbon Dioxide BUN Creatinine Est GFR ( Amer) Est GFR (MDRD) Non-Af Glucose Calcium NT-Pro-B Natriuret Pep 1480 H Albumin Urine Protein 100 H Urine Blood SMALL H Urine Ascorbic Acid 40 H - Diagnostic Test Radiology reviewed: Reports reviewed - EKG Interpretation by Me Additional EKG results interpreted by me: 08/18/19 21:07 Treatment by me shows a sinus tachycardia with a rate of 106. Some baseline artifact. 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 QT is upper limits of normal these are all unchanged from previous the QT interval has decreased in length Discharge - Discharge Clinical Impression: Abdominal pain Qualifiers: Abdominal location: left lower quadrant Qualified Code(s): R10.32 - Left lower quadrant pain Leukocytosis Qualifiers: Leukocytosis type: unspecified Qualified Code(s): D72.829 - Elevated white blood cell count, unspecified Fever Qualifiers: Fever type: unspecified Qualified Code(s): R50.9 - Fever, unspecified Nausea & vomiting Qualifiers: Vomiting type: unspecified Vomiting Intractability: unspecified Qualified Code(s): R11.2 - Nausea with vomiting, unspecified Disposition: ADMITTED INPATIENT Admitting Provider: Mauricio (Hospitalist) Unit Admitted: Telemetry Referrals: SHAILA LOPEZ MD [Primary Care Provider] - Follow up as needed
[2019-08-18] MEDS ORDERED: MEROPENEM 1 GM VIAL IV ONE (21:26)
[2019-08-18] MEDS ORDERED: MAGNESIUM HYDROXIDE SUSP 30 ML UDCUP PO PRN (21:38)
[2019-08-18] MEDS ORDERED: IPRATROPIUM/ALBUTEROL 0.5-2.5 MG/3 ML AMPUL NEB PRN (21:38)
[2019-08-18] MEDS ORDERED: MAG HYDROX/AL HYDROX/SIMETH SUSP 30 ML UDCUP PO PRN (21:38)
[2019-08-18] MEDS ORDERED: ACETAMINOPHEN 325 MG TABLET PO PRN (21:38)
[2019-08-18] MEDS ORDERED: ONDANSETRON HCL INJ/PF 4 MG/2 ML SDV IV PRN (21:38)
[2019-08-18] MEDS ORDERED: DEXTROSE 50%-WATER 25 GM/50 ML DISP.SYRIN IV PRN ×2 (21:41)
[2019-08-18] MEDS ORDERED: GLUCAGON,HUMAN RECOMB 1 MG INJ IM PRN (21:41)
[2019-08-18] MEDS ORDERED: DEXTROSE 40% GEL 15 GM TUBE PO PRN ×2 (21:41)
[2019-08-18] MEDS ORDERED: PIPERACILLIN/TAZOBACTAM 3.375 GM VIAL IV ONE (21:41)
[2019-08-18] MEDS ORDERED: NORMAL SALINE 1000 ML 1,000 ML IV SCH (21:45)
[2019-08-18] MEDS ORDERED: MEROPENEM 1 GM VIAL IV PRN (22:02)
[2019-08-18] MEDS: HEPARIN SOD (PORCINE) 5,000 UNIT/ML 1 ML VIAL SUBCUT SCH (22:57)
[2019-08-19] MEDS: MEROPENEM 1 GM in NORMAL SALINE 50 ML IV SCH ×4 (00:41→21:58)
--- NOTE | 2019-08-19 05:18 | PDOC H&P ---
History of Present Illness Admission Date/PCP: 08/18/19 22:00 SHAILA LOPEZ MD Patient complains of: Abdominal pain History of Present Illness: MATTEO RAIN is a 88 year old male with a past medical history of atrial fibrillation on Xarelto, dementia, diabetes, obstructive sleep apnea, prostate cancer with bony mets stage III chronic kidney disease, and diabetes, presents 48 hours after discharge of presumed gastroenteritis. He is found to have leukocytosis of 18,000 and complaints of left lower quadrant pain. CT reveals uncomplicated diverticulitis without abscess or perforation. He started on IV antibiotics and referred to the hospitalist for admission. He is a poor historian but denies previous episode. Past Medical History Cardiac Medical History: Reports: Atrial Fibrillation, Hyperlipidema, Heart Mu rmur - Aortic valvular disease Pulmonary Medical History: Reports: Chronic Obstructive Pulmonary Disease (COPD), Pneumonia, Sleep Apnea Neurological Medical History: Denies: Seizures Endocrine Medical History: Reports: Diabetes Mellitus Type 2 Denies: Diabetes Mellitus Type 1, Hyperthyroidism, Hypothyroidism Malignancy Medical History: Reports: Skin Cancer GI Medical History: Reports: Gastroesophageal Reflux Disease Denies: Cirrhosis, Crohn's Disease, Hepatitis, Ulcerative Colitis Musculoskeltal Medical History: Reports: Arthritis, Gout Skin Medical History: Denies: Eczema, Psoriasis Psychiatric Medical History: Reports: Depression Hematology: Reports: Anemia Denies: Bleeding Tendencies Infectious Medical History: Reports: Methicillin-Resistant Staph Aureus - Pneumonia in 2010 Past Surgical History Past Surgical History: Reports: Cardiac Catheterization, Orthopedic Surgery - Left knee prosthesis 1995, right knee prosthesis x2 since 1999. Cataract, Valve Replacement - Aortic valve Social History Information Source: Patient, COUNTS INCLUDE 234 BEDS AT THE [facility] Records Smoking Status: Former Smoker Cigarettes Packs Per Day: 1.5 Electronic Cigarette use?: No Number of Years Smokin Last Time Smoked: 1975 Frequency of Alcohol Use: None Hx Recreational Drug Use: No Drugs: None Hx Prescription Drug Abuse: No - Advance Directive Resuscitation Status: Full Code Family History Family History: Hypertension, Other - both parents of "old age" Parental Family History Reviewed: Yes Children Family History Reviewed: Yes Sibling(s) Family History Reviewed.: Yes Medication/Allergy Home Medications: Antiox.mv No.10/Omeg3s/Lut/Fidencio [I-Caps with Lutein-[place] 3 Sfg] 1 cap PO BID 07/06/13 Azathioprine [Imuran 50 mg Tablet] 150 mg PO DAILY 07/06/13 Cyanocobalamin (Vitamin B-12) [Vitamin B-12] 1,000 mcg PO DAILY 07/06/13 Prednisone 15 mg PO Q2D 07/06/13 Rivaroxaban [Xarelto 15 mg Tablet] 15 mg PO DAILY 07/06/13 Psyllium Husk (with Sugar) [Metamucil Packet] 1 packet PO DAILY 11/07/16 Atorvastatin Calcium [Lipitor 10 mg Tablet] 10 mg PO QHS 08/14/19 Biotin [Dino Biotin] 10,000 mcg PO DAILY 08/14/19 Calcium Carbonate [Calcium] 600 mg PO BID 08/14/19 Cholecalciferol (Vitamin D3) [Vitamin D3] 50 mcg PO DAILY 08/14/19 Furosemide [Lasix 20 mg Tablet] 20 mg PO SUTUWETHSA 08/14/19 Glimepiride [Amaryl 4 mg Tablet] 4 mg PO DAILYP PRN 08/14/19 Hum Insulin NPH/Reg Insulin Hm [Novolin 70-30 100 Unit/ml Vial] 12 unit SQ BID 08/14/19 Linagliptin [Tradjenta] 5 mg PO DAILY 08/14/19 Metoprolol Succinate [Kapspargo Sprinkle] 12.5 mg PO SUTUWETHSA 08/14/19 Sertraline HCl 50 mg PO DAILY 08/14/19 Sitagliptin Phosphate [Januvia 25 mg Tablet] 25 mg PO DAILY 08/14/19 Diphenoxylate HCl/Atrop Sulf [Lomotil 2.5 mg Tablet] 1 tab PO Q6HP PRN 3 Days #10 tablet 08/16/19 Allergies/Adverse Reactions: bumetanide [From Bumex] Allergy (Verified 06/19/18 17:53) ivermectin [Ivermectin] Allergy (Verified 06/19/18 17:53) oxycodone HCl [From Percocet] Allergy (Verified 06/19/18 17:53) valsartan [From Diovan] Allergy (Verified 06/19/18 17:53) Review of Systems ROS unobtainable: Due to mental status Gastrointestinal: PRESENT: as per HPI, constipation Genitourinary: PRESENT: as per HPI Physical Exam Vital Signs: Temp Pulse Resp BP Pulse Ox 98.2 F 90 27 H 131/53 H 99 08/19/19 02:00 08/19/19 02:00 08/19/19 02:53 08/19/19 02:00 08/19/19 02:00 Intake & Output 08/17/19 08/18/19 08/19/19 11:59 11:59 11:59 Intake Total 1050 Balance 1050 Weight 90.3 kg General appearance: PRESENT: cooperative, mild distress, obese, well-developed, well-nourished Head exam: PRESENT: atraumatic, normocephalic Eye exam: PRESENT: conjunctiva pink, EOMI, PERRLA. ABSENT: scleral icterus Ear exam: PRESENT: normal external ear exam Mouth exam: PRESENT: moist, tongue midline Neck exam: ABSENT: carotid bruit, JVD, lymphadenopathy, thyromegaly Respiratory exam: PRESENT: clear to auscultation elizabeth. ABSENT: rales, rhonchi, wheezes Cardiovascular exam: PRESENT: RRR. ABSENT: diastolic murmur, rubs, systolic murmur Pulses: PRESENT: normal dorsalis pedis pul Vascular exam: PRESENT: normal capillary refill GI/Abdominal exam: PRESENT: normal bowel sounds, soft, tenderness - Left lower quadrant. ABSENT: distended, guarding, mass, organolmegaly, rebound Rectal exam: PRESENT: deferred Extremities exam: PRESENT: full ROM. ABSENT: calf tenderness, clubbing, pedal edema Neurological exam: PRESENT: alert, awake, oriented to person, oriented to place, CN II-XII grossly intact. ABSENT: motor sensory deficit Psychiatric exam: PRESENT: appropriate affect, normal mood. ABSENT: homicidal ideation, suicidal ideation Skin exam: PRESENT: dry, intact, warm. ABSENT: cyanosis, rash Results Laboratory Results: 08/18/19 18:20 08/18/19 18:20 08/18/19 08/18/19 08/18/19 18:20 18:20 18:20 WBC 18.1 H RBC 2.50 L Hgb 9.0 L Hct 26.0 L MCV 104 H MCH 36.0 H MCHC 34.6 RDW 16.1 H Plt Count 187 Seg Neutrophils % Not Reportable VBG pH VBG pCO2 VBG HCO3 VBG Base Excess Sodium 138.3 Potassium 3.8 Chloride 106 Carbon Dioxide 20 L Anion Gap 12 BUN 21 H Creatinine 1.96 H Est GFR ( Amer) 39 L Glucose 150 H Lactic Acid 1.3 Calcium 7.2 L Total Bilirubin 0.4 AST 24 Alkaline Phosphatase 73 Total Protein 6.3 Albumin 3.3 L Lipase Urine Color Urine Appearance Urine pH Ur Specific [place] Urine Protein Urine Glucose (UA) Urine Ketones Urine Blood Urine Nitrite Ur Leukocyte Esterase Urine WBC (Auto) Urine RBC (Auto) 08/18/19 08/18/19 08/18/19 18:20 19:41 19:41 WBC RBC Hgb Hct MCV MCH MCHC RDW Plt Count Seg Neutrophils % VBG pH 7.39 VBG pCO2 34.8 L VBG HCO3 20.6 VBG Base Excess -3.6 Sodium Potassium Chloride Carbon Dioxide Anion Gap BUN Creatinine Est GFR ( Amer) Glucose Lactic Acid Calcium Total Bilirubin AST Alkaline Phosphatase Total Protein Albumin Lipase 240.2 Urine Color YELLOW Urine Appearance CLEAR Urine pH 5.0 Ur Specific [place] 1.012 Urine Protein 100 H Urine Glucose (UA) NEGATIVE Urine Ketones NEGATIVE Urine Blood SMALL H Urine Nitrite NEGATIVE Ur Leukocyte Esterase NEGATIVE Urine WBC (Auto) 0 Urine RBC (Auto) 1 08/18/19 08/19/19 22:40 00:34 WBC RBC Hgb Hct MCV MCH MCHC RDW Plt Count Seg Neutrophils % VBG pH VBG pCO2 VBG HCO3 VBG Base Excess Sodium Potassium Chloride Carbon Dioxide Anion Gap BUN Creatinine Est GFR ( Amer) Glucose Lactic Acid 1.5 0.5 L Calcium Total Bilirubin AST Alkaline Phosphatase Total Protein Albumin Lipase Urine Color Urine Appearance Urine pH Ur Specific [place] Urine Protein Urine Glucose (UA) Urine Ketones Urine Blood Urine Nitrite Ur Leukocyte Esterase Urine WBC (Auto) Urine RBC (Auto) 08/18/19 08/18/19 18:20 18:20 Troponin I < 0.012 NT-Pro-B Natriuret Pep 1480 H Impressions: Chest X-Ray 08/18/19 18:33 IMPRESSION: Cardiomegaly with pulmonary vascular congestion but no emmanuel pulmonary edema. Abdomen/Pelvis CT 08/18/19 19:36 IMPRESSION: Findings are consistent with acute, uncomplicated diverticulitis involving the distal descending/proximal sigmoid colon. Widespread osseous metastatic disease. Moderately sized hiatal hernia. Trace bilateral pleural effusions with bibasilar consolidation, presumably atelectasis. Nonobstructive right nephrolithiasis. TECHNICAL DOCUMENTATION: Quality ID # [id number]: Final reports with documentation of one or more dose reduction techniques (e.g., Automated exposure control, adjustment of the mA and/or kV according to patient size, use of iterative reconstruction technique) copyright 2011 [employer]- All Rights Reserved Head CT 08/18/19 19:36 IMPRESSION: Atrophy. Advanced white matter disease. 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 There are no acute intracranial findings. Assessment and Plan - Diagnosis (1) Acute diverticulitis Is this a current diagnosis for this admission?: Yes Plan: IV meropenem, IV fluid, clear liquid challenge, follow-up CBC and blood culture (2) Anemia Is this a current diagnosis for this admission?: Yes Plan: Follow-up anemia labs (3) Nausea & vomiting Qualifiers: Vomiting type: unspecified Vomiting Intractability: unspecified Qualified Code(s): R11.2 - Nausea with vomiting, unspecified Is this a current diagnosis for this admission?: Yes Plan: Secondary to #1, Zofran as needed (4) A-fib Is this a current diagnosis for this admission?: Yes Plan: IV fluid challenge, beta-maria guadalupe PRN continue anticoagulation (5) Chronic kidney disease, stage III (moderate) Is this a current diagnosis for this admission?: Yes Plan: Chronic, at baseline, avoid nephrotoxic meds and doses, follow-up chemistry (6) Diabetes mellitus type 2 in obese Is this a current diagnosis for this admission?: Yes Plan: Humalog sliding scale (7) Myasthenia gravis Is this a current diagnosis for this admission?: Yes Plan: Follow-up medication reconciliation - Time Time Spent with patient: 25-34 minutes - Inpatient Certification Medical Necessity: Need Close Monitoring Due to Risk of Patient Decompensation
[2019-08-19 06:32] LABS: IRON(TIBC) 14.1 ug/dL (49-181)
[2019-08-19 06:34] LABS: ANION GAP 9 (5-19); BLOOD UREA NITROGEN 20 mg/dL (7-20); CARBON DIOXIDE 21 mmol/L (22-30); CHLORIDE 109 mmol/L (98-107); GLUCOSE 114 mg/dL (75-110); POTASSIUM 3.4 mmol/L (3.6-5.0)
[2019-08-19 06:41] LABS: HEMATOCRIT 23.2 % (37.9-51.0); MEAN CORPUSCULAR HEMOGLOBIN 35.2 pg (27.0-33.4); MEAN CORPUSCULAR HGB CONC 33.7 g/dL (32.0-36.0); MEAN CORPUSCULAR VOLUME 104 fl (80-97); PLATELET COUNT 168 10^3/uL (150-450); RED BLOOD COUNT 2.22 10^6/uL (4.35-5.55); RED CELL DISTRIBUTION WIDTH 15.8 % (11.5-14.0); WHITE BLOOD COUNT 16.5 10^3/uL (4.0-10.5)
[2019-08-19 06:42] LABS: ABSOLUTE RETICS # 0.047 10^6/uL (0.028-0.122); RETICULOCYTE COUNT (AUTO) 2.15 % (0.66-2.85)
[2019-08-19 06:45] LABS: CALCIUM 6.5 mg/dL (8.4-10.2)
[2019-08-19] MEDS: HEPARIN SOD (PORCINE) 5,000 UNIT/ML 1 ML VIAL SUBCUT SCH (07:00)
[2019-08-19] MEDS ORDERED: MEROPENEM 1 GM VIAL ONE (07:02)
[2019-08-19 07:03] LABS: HEMOGLOBIN 7.8 g/dL (13.5-17.0)
[2019-08-19 07:04] LABS: ABSOLUTE LYMPHOCYTES# (MANUAL) 1.7 10^3/uL (0.5-4.7); ABSOLUTE MONOCYTES # (MANUAL) 1.3 10^3/uL (0.1-1.4); BASOPHILS % (MANUAL) 0 % (0-2); EOSINOPHILS % (MANUAL) 0 % (0-6); LYMPHOCYTES % (MANUAL) 10 % (13-45); MONOCYTES % (MANUAL) 8 % (3-13); NUCLEATED RED BLOOD CELLS 1 /100 WBC (0); SEGMENTED NEUTROPHILS % (MAN) 82 % (42-78); TOTAL CELLS COUNTED 100
[2019-08-19 07:09] LABS: ANISOCYTOSIS SLIGHT; TOXIC GRANULATION SLIGHT
[2019-08-19 07:10] LABS: PLATELET COMMENT ADEQUATE; POLYCHROMASIA SLIGHT
[2019-08-19] MEDS: NORMAL SALINE 1000 ML 1,000 ML IV PRN ×2 (07:44→11:35)
[2019-08-19 07:45] LABS: FOLATE > 20.00 ng/mL (>2.76)
[2019-08-19] MEDS ORDERED: CALCIUM GLUCONATE 1000 MG/10 ML INJ IV ONE ×2 (07:56→17:30)
[2019-08-19] MEDS ORDERED: POTASSI CL 20 MEQ/50 ML RIDER 20 MEQ/50 ML RTUPB IV ONE (08:30)
[2019-08-19] MEDS ORDERED: POTASSIUM CHLORIDE 10 MEQ TABLET.ER PO ONE (08:30)
[2019-08-19] MEDS ORDERED: CALCIUM GLUCONATE 2,000 MG in DEXTROSE 5%-WATER 100 ML IV ONE (09:30)
[2019-08-19] MEDS ORDERED: GLIMEPIRIDE 4 MG TABLET PO PRN (13:11)
--- NOTE | 2019-08-19 13:19 | PDOC PROGRESS REPORT ---
Subjective Progress Note for:: 08/19/19 Subjective:: Patient still has some abdominal pain and mild diarrhea. Pain is mostly localized to his left lower quadrant. States he was nauseous before but has resolved. Reason For Visit: FEVER,ACUTE DIVERTICULITIS,CKD,PROSTATE CA Physical Exam Vital Signs: Temp Pulse Resp BP Pulse Ox 98.3 F 82 19 116/51 L 93 08/19/19 12:34 08/19/19 12:34 08/19/19 12:34 08/19/19 12:34 08/19/19 12:34 Intake & Output 08/18/19 08/19/19 08/20/19 06:59 06:59 06:59 Intake Total 1050 1013 Output Total 125 100 Balance 925 913 Weight 90.3 kg General appearance: PRESENT: no acute distress, cooperative Respiratory exam: PRESENT: clear to auscultation elizabeth, unlabored. ABSENT: symmetrical, tachypnea, wheezes Cardiovascular exam: PRESENT: RRR, +S1, +S2. ABSENT: tachycardia GI/Abdominal exam: PRESENT: normal bowel sounds, soft, tenderness - Left lower quadrant. ABSENT: distended, rebound, rigid Neurological exam: PRESENT: alert, awake Results Laboratory Results: 08/19/19 05:31 08/19/19 05:31 08/18/19 08/18/19 08/18/19 18:20 18:20 18:20 WBC 18.1 H RBC 2.50 L Hgb 9.0 L Hct 26.0 L MCV 104 H MCH 36.0 H MCHC 34.6 RDW 16.1 H Plt Count 187 Seg Neutrophils % Not Reportable Retic Count (auto) VBG pH VBG pCO2 VBG HCO3 VBG Base Excess Sodium 138.3 Potassium 3.8 Chloride 106 Carbon Dioxide 20 L Anion Gap 12 BUN 21 H Creatinine 1.96 H Est GFR ( Amer) 39 L Glucose 150 H Lactic Acid 1.3 Calcium 7.2 L Magnesium Iron TIBC % Saturation Ferritin Total Bilirubin 0.4 AST 24 Alkaline Phosphatase 73 Total Protein 6.3 Albumin 3.3 L Lipase Vitamin B12 Folate Urine Color Urine Appearance Urine pH Ur Specific [place] Urine Protein Urine Glucose (UA) Urine Ketones Urine Blood Urine Nitrite Ur Leukocyte Esterase Urine WBC (Auto) Urine RBC (Auto) 08/18/19 08/18/19 08/18/19 18:20 19:41 19:41 WBC RBC Hgb Hct MCV MCH MCHC RDW Plt Count Seg Neutrophils % Retic Count (auto) VBG pH 7.39 VBG pCO2 34.8 L VBG HCO3 20.6 VBG Base Excess -3.6 Sodium Potassium Chloride Carbon Dioxide Anion Gap BUN Creatinine Est GFR ( Amer) Glucose Lactic Acid Calcium Magnesium Iron TIBC % Saturation Ferritin Total Bilirubin AST Alkaline Phosphatase Total Protein Albumin Lipase 240.2 Vitamin B12 Folate Urine Color YELLOW Urine Appearance CLEAR Urine pH 5.0 Ur Specific [place] 1.012 Urine Protein 100 H Urine Glucose (UA) NEGATIVE Urine Ketones NEGATIVE Urine Blood SMALL H Urine Nitrite NEGATIVE Ur Leukocyte Esterase NEGATIVE Urine WBC (Auto) 0 Urine RBC (Auto) 1 08/18/19 08/19/19 08/19/19 22:40 00:34 05:31 WBC 16.5 H RBC 2.22 L Hgb 7.8 L Hct 23.2 L MCV 104 H MCH 35.2 H MCHC 33.7 RDW 15.8 H Plt Count 168 Seg Neutrophils % Not Reportable Retic Count (auto) VBG pH VBG pCO2 VBG HCO3 VBG Base Excess Sodium Potassium Chloride Carbon Dioxide Anion Gap BUN Creatinine Est GFR ( Amer) Glucose Lactic Acid 1.5 0.5 L Calcium Magnesium Iron TIBC % Saturation Ferritin Total Bilirubin AST Alkaline Phosphatase Total Protein Albumin Lipase Vitamin B12 Folate Urine Color Urine Appearance Urine pH Ur Specific [place] Urine Protein Urine Glucose (UA) Urine Ketones Urine Blood Urine Nitrite Ur Leukocyte Esterase Urine WBC (Auto) Urine RBC (Auto) 08/19/19 08/19/19 08/19/19 05:31 05:31 05:31 WBC RBC Hgb Hct MCV MCH MCHC RDW Plt Count Seg Neutrophils % Retic Count (auto) 2.15 VBG pH VBG pCO2 VBG HCO3 VBG Base Excess Sodium 138.7 Potassium 3.4 L Chloride 109 H Carbon Dioxide 21 L Anion Gap 9 BUN 20 Creatinine 1.99 H Est GFR ( Amer) 39 L Glucose 114 H Lactic Acid Calcium 6.5 L* Magnesium Iron 14.1 L TIBC 207 L % Saturation 7 Ferritin 402.00 Total Bilirubin AST Alkaline Phosphatase Total Protein Albumin Lipase Vitamin B12 506.0 Folate > 20.00 Urine Color Urine Appearance Urine pH Ur Specific [place] Urine Protein Urine Glucose (UA) Urine Ketones Urine Blood Urine Nitrite Ur Leukocyte Esterase Urine WBC (Auto) Urine RBC (Auto) 08/19/19 05:31 WBC RBC Hgb Hct MCV MCH MCHC RDW Plt Count Seg Neutrophils % Retic Count (auto) VBG pH VBG pCO2 VBG HCO3 VBG Base Excess Sodium Potassium Chloride Carbon Dioxide Anion Gap BUN Creatinine Est GFR ( Amer) Glucose Lactic Acid Calcium Magnesium 1.8 Iron TIBC % Saturation Ferritin Total Bilirubin AST Alkaline Phosphatase Total Protein Albumin Lipase Vitamin B12 Folate Urine Color Urine Appearance Urine pH Ur Specific [place] Urine Protein Urine Glucose (UA) Urine Ketones Urine Blood Urine Nitrite Ur Leukocyte Esterase Urine WBC (Auto) Urine RBC (Auto) 08/18/19 08/18/19 18:20 18:20 Troponin I < 0.012 NT-Pro-B Natriuret Pep 1480 H Impressions: Chest X-Ray 08/18/19 18:33 IMPRESSION: Cardiomegaly with pulmonary vascular congestion but no emmanuel pulmonary edema. Abdomen/Pelvis CT 08/18/19 19:36 IMPRESSION: Findings are consistent with acute, uncomplicated diverticulitis involving the distal descending/proximal sigmoid colon. Widespread osseous metastatic disease. Moderately sized hiatal hernia. Trace bilateral pleural effusions with bibasilar consolidation, presumably atelectasis. Nonobstructive right nephrolithiasis. TECHNICAL DOCUMENTATION: Quality ID # [id number]: Final reports with documentation of one or more dose reduction techniques (e.g., Automated exposure control, adjustment of the mA and/or kV according to patient size, use of iterative reconstruction technique) copyright 2011 [employer]- All Rights Reserved Head CT 08/18/19 19:36 IMPRESSION: Atrophy. Advanced white matter disease. 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 There are no acute intracranial findings. Assessment and Plan - Diagnosis (1) Acute diverticulitis Is this a current diagnosis for this admission?: Yes Plan: Noted on CT scan involving descending colon and sigmoid Continue IV meropenem and follow-up blood cultures Pain control (2) Hypocalcemia Is this a current diagnosis for this admission?: Yes Plan: Asymptomatic. I suspect that this is from patient's CKD I gave 2 g of calcium gluconate and will check calcium levels later Continue patient's home dose of calcium carbonate twice daily Calcitriol. Patient does take cholecalciferol at home. Check vitamin D3 and PTH level (3) Anemia in chronic renal disease Is this a current diagnosis for this admission?: Yes Plan: Patient's iron studies suggest anemia of chronic disease likely CKD but with some underlying iron deficiency anemia as well. Iron sats of 7%. During acute infection, I will order for an IV iron supplementation and just give p.o. ferrous sulfate. 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 primary neonatal pediatric nurse (4) Chronic kidney disease, stage III (moderate) Is this a current diagnosis for this admission?: Yes Plan: Chronic, at baseline, avoid nephrotoxic meds and doses, follow-up chemistry (5) Diabetes mellitus type 2 in obese Is this a current diagnosis for this admission?: Yes Plan: Humalog sliding scale, Accu-Cheks Home regimen of NPH/regular insulin 70/30 resumed with as needed glimepiride full BG over 250 (6) Chronic atrial fibrillation Is this a current diagnosis for this admission?: Yes Plan: Continue Toprol and Xarelto (7) Myasthenia gravis Is this a current diagnosis for this admission?: Yes Plan: Continue prednisone Hold azathioprine for now given active infection. - Time Time Spent with patient: 15-24 minutes - Inpatient Certification Medical Necessity: Need for IV Antibiotics, Risk of Complication if Not Cared For in Hospital
[2019-08-19] MEDS: PREDNISONE 10 MG TABLET PO SCH (13:34)
[2019-08-19] MEDS: FUROSEMIDE 20 MG TABLET PO SCH (13:35)
[2019-08-19 16:42] LABS: ALBUMIN 2.5 g/dL (3.5-5.0); ALKALINE PHOSPHATASE 53 U/L (38-126); ANION GAP 9 (5-19); ASPARTATE AMINO TRANSFERASE 23 U/L (17-59); BILIRUBIN,DIRECT 0.2 mg/dL (0.0-0.4); BILIRUBIN,TOTAL 0.4 mg/dL (0.2-1.3); BLOOD UREA NITROGEN 20 mg/dL (7-20); CARBON DIOXIDE 18 mmol/L (22-30); CHLORIDE 111 mmol/L (98-107); GLUCOSE 117 mg/dL (75-110); POTASSIUM 4.3 mmol/L (3.6-5.0); TOTAL PROTEIN 5.2 g/dL (6.3-8.2)
[2019-08-19 16:49] LABS: CALCIUM 6.7 mg/dL (8.4-10.2)
[2019-08-19] MEDS: CALCIUM CARBONATE 500 MG TABLET PO SCH (17:42)
[2019-08-19] MEDS: ATORVASTATIN CALCIUM 10 MG TABLET PO SCH (17:43)
[2019-08-19] MEDS: RIVAROXABAN 15 MG TABLET PO SCH (17:43)
[2019-08-19] MEDS: HUM INSULIN NPH/REG INSULIN HM 100 UNIT/1 ML 3 ML SUBCUT SCH (17:44)
[2019-08-20] MEDS: MEROPENEM 1 GM in NORMAL SALINE 50 ML IV SCH ×3 (05:14→21:38)
[2019-08-20 08:49] LABS: ALBUMIN 2.7 g/dL (3.5-5.0); ALKALINE PHOSPHATASE 62 U/L (38-126); ANION GAP 9 (5-19); ASPARTATE AMINO TRANSFERASE 25 U/L (17-59); BILIRUBIN,DIRECT 0.2 mg/dL (0.0-0.4); BILIRUBIN,TOTAL 0.3 mg/dL (0.2-1.3); BLOOD UREA NITROGEN 20 mg/dL (7-20); CALCIUM 7.5 mg/dL (8.4-10.2); CARBON DIOXIDE 19 mmol/L (22-30); CHLORIDE 114 mmol/L (98-107); GLUCOSE 110 mg/dL (75-110); POTASSIUM 4.5 mmol/L (3.6-5.0); TOTAL PROTEIN 5.5 g/dL (6.3-8.2)
[2019-08-20 08:58] LABS: HEMATOCRIT 23.5 % (37.9-51.0); HEMOGLOBIN 8.1 g/dL (13.5-17.0); MEAN CORPUSCULAR HEMOGLOBIN 35.4 pg (27.0-33.4); MEAN CORPUSCULAR HGB CONC 34.3 g/dL (32.0-36.0); MEAN CORPUSCULAR VOLUME 103 fl (80-97); PLATELET COUNT 206 10^3/uL (150-450); RED BLOOD COUNT 2.27 10^6/uL (4.35-5.55); RED CELL DISTRIBUTION WIDTH 16.1 % (11.5-14.0); WHITE BLOOD COUNT 15.9 10^3/uL (4.0-10.5)
[2019-08-20 09:22] LABS: ABSOLUTE MONOCYTES # (MANUAL) 1.3 10^3/uL (0.1-1.4); BAND NEUTROPHILS % (MANUAL) 3 % (3-5); BASOPHILS % (MANUAL) 1 % (0-2); EOSINOPHILS % (MANUAL) 0 % (0-6); LYMPHOCYTES % (MANUAL) 6 % (13-45); MONOCYTES % (MANUAL) 8 % (3-13); SEGMENTED NEUTROPHILS % (MAN) 82 % (42-78); TOTAL CELLS COUNTED 100
[2019-08-20 09:23] LABS: ANISOCYTOSIS 1+; BURR CELLS SLIGHT; PLATELET COMMENT ADEQUATE; POLYCHROMASIA SLIGHT
[2019-08-20] MEDS: METOPROLOL SUCCINATE 25 MG TAB.SR.24H PO SCH (09:40)
[2019-08-20] MEDS: CALCITRIOL 0.25 MCG CAPSULE PO SCH (09:40)
[2019-08-20] MEDS: CYANOCOBALAMIN (VITAMIN B-12) 1,000 MCG TABLET PO SCH (09:40)
[2019-08-20] MEDS: CALCIUM CARBONATE 500 MG TABLET PO SCH ×2 (09:40→17:42)
[2019-08-20] MEDS: HUM INSULIN NPH/REG INSULIN HM 100 UNIT/1 ML 3 ML SUBCUT SCH ×2 (09:41→17:23)
[2019-08-20] MEDS: SERTRALINE HCL 50 MG TABLET PO SCH (09:41)
[2019-08-20] MEDS ORDERED: AZATHIOPRINE 50 MG TABLET PO SCH (10:00)
[2019-08-20] MEDS: FUROSEMIDE 20 MG TABLET PO SCH (13:14)
[2019-08-20] MEDS: RIVAROXABAN 15 MG TABLET PO SCH (17:42)
[2019-08-20] MEDS: ATORVASTATIN CALCIUM 10 MG TABLET PO SCH (17:42)
--- NOTE | 2019-08-20 18:37 | PDOC PROGRESS REPORT ---
Subjective Progress Note for:: 08/20/19 Subjective:: Patient feels better today. Still having some pain in his left lower quadrant but only isolated to the region. Denies any fever or chills. Denies any diarrhea at the moment. Reason For Visit: FEVER,ACUTE DIVERTICULITIS,CKD,PROSTATE CA Physical Exam Vital Signs: Temp Pulse Resp BP Pulse Ox 98.4 F 71 19 137/52 H 97 08/20/19 16:00 08/20/19 16:00 08/20/19 16:00 08/20/19 16:00 08/20/19 16:00 Intake & Output 08/19/19 08/20/19 08/21/19 06:59 06:59 06:59 Intake Total 1050 2281 800 Output Total 125 700 325 Balance 925 1581 475 Weight 90.3 kg 90 kg General appearance: PRESENT: no acute distress, cooperative Neck exam: ABSENT: JVD Respiratory exam: PRESENT: clear to auscultation elizabeth, symmetrical, unlabored. ABSENT: tachypnea, wheezes Cardiovascular exam: PRESENT: RRR, +S1, +S2. ABSENT: tachycardia GI/Abdominal exam: PRESENT: normal bowel sounds, soft, tenderness - Left lower quadrant. ABSENT: firm, guarding, rebound, rigid Neurological exam: PRESENT: alert, awake, oriented to person, oriented to place, oriented to time, oriented to situation Results Laboratory Results: 08/20/19 04:30 08/20/19 04:30 08/20/19 08/20/19 08/20/19 04:30 04:30 04:30 WBC 15.9 H RBC 2.27 L Hgb 8.1 L Hct 23.5 L MCV 103 H MCH 35.4 H MCHC 34.3 RDW 16.1 H Plt Count 206 Seg Neutrophils % Not Reportable Sodium 141.6 Potassium 4.5 Chloride 114 H Carbon Dioxide 19 L Anion Gap 9 BUN 20 Creatinine 1.77 H Est GFR ( Amer) 44 L Glucose 110 Calcium 7.5 L Magnesium 2.0 Total Bilirubin 0.3 AST 25 Alkaline Phosphatase 62 Total Protein 5.5 L Albumin 2.7 L PTH Intact 160.8 H 08/18/19 08/18/19 18:20 18:20 Troponin I < 0.012 NT-Pro-B Natriuret Pep 1480 H Impressions: Chest X-Ray 08/18/19 18:33 IMPRESSION: Cardiomegaly with pulmonary vascular congestion but no emmanuel pulmonary edema. Abdomen/Pelvis CT 08/18/19 19:36 IMPRESSION: Findings are consistent with acute, uncomplicated diverticulitis involving the distal descending/proximal sigmoid colon. Widespread osseous metastatic disease. Moderately sized hiatal hernia. Trace bilateral pleural effusions with bibasilar consolidation, presumably atelectasis. Nonobstructive right nephrolithiasis. TECHNICAL DOCUMENTATION: Quality ID # [id number]: Final reports with documentation of one or more dose reduction techniques (e.g., Automated exposure control, adjustment of the mA and/or kV according to patient size, use of iterative reconstruction technique) copyright 2011 [employer]- All Rights Reserved Head CT 08/18/19 19:36 IMPRESSION: Atrophy. Advanced white matter disease. 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 There are no acute intracranial findings. Assessment and Plan - Diagnosis (1) Acute diverticulitis Is this a current diagnosis for this admission?: Yes Plan: Noted on CT scan involving descending colon and sigmoid. Image reviewed by me. Continue IV meropenem and follow-up blood cultures Pain control (2) Hypocalcemia Is this a current diagnosis for this admission?: Yes Plan: Secondary to CKD currently resolved with continued supplementation. Continue patient's home dose of calcium carbonate twice daily Started on calcitriol Normal vitamin D 25 level with elevated PTH likely secondary to CKD (3) Anemia in chronic renal disease Qualifiers: Chronic kidney disease stage: stage 3 (moderate) Qualified Code(s): N18.3 - Chronic kidney disease, stage 3 (moderate); D63.1 - Anemia in chronic kidney disease Is this a current diagnosis for this admission?: Yes Plan: Patient's iron studies suggest anemia of chronic disease likely CKD but with some underlying iron deficiency anemia as well. Iron sats of 7%. During acute infection, I will order for an IV iron supplementation and just give p.o. ferrous sulfate upon discharge. 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 (4) Chronic kidney disease, stage III (moderate) Is this a current diagnosis for this admission?: Yes Plan: Chronic, at baseline, avoid nephrotoxic meds and doses, follow-up chemistry (5) Diabetes mellitus type 2 in obese Is this a current diagnosis for this admission?: Yes Plan: Humalog sliding scale, Accu-Cheks Home regimen of NPH/regular insulin 70/30 resumed with as needed glimepiride full BG over 250 (6) Chronic atrial fibrillation Is this a current diagnosis for this admission?: Yes Plan: Continue Toprol and Xarelto (7) Myasthenia gravis Is this a current diagnosis for this admission?: Yes Plan: Continue prednisone Hold azathioprine for now given active infection. - Plan Summary Summary: Physical therapy - Time Time Spent with patient: 15-24 minutes
[2019-08-21] MEDS: MEROPENEM 1 GM in NORMAL SALINE 50 ML IV SCH ×2 (05:52→14:50)
[2019-08-21] MEDS: HUM INSULIN NPH/REG INSULIN HM 100 UNIT/1 ML 3 ML SUBCUT SCH ×2 (09:04→18:00)
[2019-08-21] MEDS: CALCIUM CARBONATE 500 MG TABLET PO SCH ×2 (09:10→17:05)
[2019-08-21] MEDS: METOPROLOL SUCCINATE 25 MG TAB.SR.24H PO SCH (09:10)
[2019-08-21] MEDS: SERTRALINE HCL 50 MG TABLET PO SCH (09:10)
[2019-08-21] MEDS: CYANOCOBALAMIN (VITAMIN B-12) 1,000 MCG TABLET PO SCH (09:10)
[2019-08-21] MEDS: FERROUS SULFATE 325 MG TABLET PO SCH (09:10)
[2019-08-21] MEDS: CALCITRIOL 0.25 MCG CAPSULE PO SCH (09:10)
[2019-08-21 10:35] LABS: ALKALINE PHOSPHATASE 63 U/L (38-126); ANION GAP 9 (5-19); ASPARTATE AMINO TRANSFERASE 24 U/L (17-59); BILIRUBIN,DIRECT 0.1 mg/dL (0.0-0.4); BILIRUBIN,TOTAL 0.4 mg/dL (0.2-1.3); BLOOD UREA NITROGEN 17 mg/dL (7-20); CALCIUM 7.7 mg/dL (8.4-10.2); CARBON DIOXIDE 19 mmol/L (22-30); CHLORIDE 112 mmol/L (98-107); GLUCOSE 128 mg/dL (75-110)
[2019-08-21 11:21] LABS: ABSOLUTE EOSINOPHILS # (AUTO) 0.2 10^3/uL (0.0-0.6); ABSOLUTE LYMPHOCYTES (AUTO) 0.6 10^3/uL (0.5-4.7); ABSOLUTE MONOCYTES (AUTO) 1.2 10^3/uL (0.1-1.4); ABSOLUTE NEUT (AUTO) 8.4 10^3/uL (1.7-8.2); BASOPHILS % (AUTO) 0.3 % (0-2); EOSINOPHILS % (AUTO) 2.1 % (0-6); HEMOGLOBIN 8.4 g/dL (13.5-17.0); LYMPHOCYTES % (AUTO) 5.5 % (13-45); MEAN CORPUSCULAR HEMOGLOBIN 36.3 pg (27.0-33.4); MEAN CORPUSCULAR HGB CONC 35.2 g/dL (32.0-36.0); MEAN CORPUSCULAR VOLUME 103 fl (80-97); MONOCYTES % (AUTO) 11.2 % (3-13); PLATELET COUNT 249 10^3/uL (150-450); RED BLOOD COUNT 2.32 10^6/uL (4.35-5.55); RED CELL DISTRIBUTION WIDTH 15.9 % (11.5-14.0); SEGMENTED NEUTROPHILS % (AUTO) 80.9 % (42-78); TOTAL CELLS COUNTED % (AUTO) 100 %; WHITE BLOOD COUNT 10.3 10^3/uL (4.0-10.5)
[2019-08-21] MEDS: PREDNISONE 10 MG TABLET PO SCH (14:50)
[2019-08-21] MEDS: ATORVASTATIN CALCIUM 10 MG TABLET PO SCH (17:05)
[2019-08-21] MEDS: RIVAROXABAN 15 MG TABLET PO SCH (17:05)
--- NOTE | 2019-08-21 18:16 | PDOC DISCHARGE SUMMARY ---
Impression - Admit/DC Date/PCP Admission Date/Primary Care Provider: 08/18/19 22:00 SHAILA LOPEZ MD Discharge Date: 08/21/19 - Discharge Diagnosis (1) Acute diverticulitis Is this a current diagnosis for this admission?: Yes (2) Hypocalcemia Is this a current diagnosis for this admission?: Yes (3) Anemia in chronic renal disease Is this a current diagnosis for this admission?: Yes (4) Chronic kidney disease, stage III (moderate) Is this a current diagnosis for this admission?: Yes (5) Diabetes mellitus type 2 in obese Is this a current diagnosis for this admission?: Yes (6) Chronic atrial fibrillation Is this a current diagnosis for this admission?: Yes (7) Myasthenia gravis Is this a current diagnosis for this admission?: Yes - Assessment Summary: Patient was evaluated for abdominal pain which was mostly in his left lower quadrant. Blood work revealed significant leukocytosis of 18,000. CT of the ab domen revealed diverticulitis involving his descending colon and sigmoid colon. He was started on IV antibiotics with IV meropenem. Blood cultures were negative. Patient's abdominal pain has almost fully resolved at this point and his diarrhea is subsiding. He has had only 1 episode of diarrhea today. During his last evaluation, he was also noted to be hypocalcemic with elevated PTH levels. He received adequate repletion has been subsiding of the hypocalcemia. I do suspect that he will secondary to his renal disease especially given his elevated PTH. Patient should continue taking his vitamin D tablets on calcium supplements. 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 Patient was started on iron sulfate as his iron studies showed anemia of chronic disease likely CKD with some superimposed iron deficiency given his low iron saturation.-I have held patient's azathioprine for a week which patient takes for his myasthenia gravis given his acute infection but have given strict instructions to resume a 5 days. Patient is being discharged in stable conditions to follow-up with his primary care physician. - Additional Information Resuscitation Status: Full Code Discharge Diet: As Tolerated Discharge Activity: Activity As Tolerated Referrals: SHAILA LOPEZ MD [Primary Care Provider] - Follow up as needed Prescriptions: Ciprofloxacin HCl [Cipro] 500 mg PO DAILY 4 Days #4 tablet Ferrous Sulfate [Feosol 325 mg Tablet] 325 mg PO DAILY #30 tablet Metronidazole [Flagyl 500 mg Tablet] 500 mg PO TID 7 Days tablet Home Medications: Antiox.mv No.10/Omeg3s/Lut/Fidencio [I-Caps with Lutein-Rowan 3 Sfg] 1 cap PO BID 07/06/13 Azathioprine [Imuran 50 mg Tablet] 150 mg PO DAILY 07/06/13 Cyanocobalamin (Vitamin B-12) [Vitamin B-12] 1,000 mcg PO DAILY 07/06/13 Prednisone 15 mg PO Q2D 07/06/13 Rivaroxaban [Xarelto 15 mg Tablet] 15 mg PO QPM 07/06/13 Psyllium Husk (with Sugar) [Metamucil Packet] 1 packet PO DAILY 11/07/16 Atorvastatin Calcium [Lipitor 10 mg Tablet] 10 mg PO QPM 08/14/19 Biotin [Dino Biotin] 10,000 mcg PO DAILY 08/14/19 Calcium Carbonate [Calcium] 600 mg PO BID 08/14/19 Cholecalciferol (Vitamin D3) [Vitamin D3] 50 mcg PO DAILY 08/14/19 Furosemide [Lasix 20 mg Tablet] 20 mg PO SUTUWETHSA 08/14/19 Glimepiride [Amaryl 4 mg Tablet] 4 mg PO DAILYP PRN 08/14/19 Hum Insulin NPH/Reg Insulin Hm [Novolin 70-30 100 Unit/ml Vial] 12 unit SQ BID 08/14/19 Linagliptin [Tradjenta] 5 mg PO QPM 08/14/19 Metoprolol Succinate [Kapspargo Sprinkle] 12.5 mg PO SUTUWETHSA 08/14/19 Sertraline HCl 50 mg PO DAILY 08/14/19 Ciprofloxacin HCl [Cipro] 500 mg PO DAILY 4 Days #4 tablet 08/21/19 Ferrous Sulfate [Feosol 325 mg Tablet] 325 mg PO DAILY #30 tablet 08/21/19 Metronidazole [Flagyl 500 mg Tablet] 500 mg PO TID 7 Days tablet 08/21/19 History of Present Illiness History of Present Illness: MATTEO RAIN is a 88 year old male with a past medical history of atrial fibrillation on Xarelto, dementia, diabetes, obstructive sleep apnea, prostate cancer with bony mets stage III chronic kidney disease, and diabetes, presents 48 hours after discharge of presumed gastroenteritis. He is found to have leukocytosis of 18,000 and complaints of left lower quadrant pain. CT reveals uncomplicated diverticulitis without abscess or perforation. He started on IV antibiotics and referred to the hospitalist for admission. He is a poor historian but denies previous episode. Physical Exam Vital Signs: Temp Pulse Resp BP Pulse Ox 100.2 F 77 14 147/54 H 97 08/21/19 16:00 08/21/19 16:00 08/21/19 16:00 08/21/19 16:00 08/21/19 16:00 Intake & Output 08/20/19 08/21/19 08/22/19 06:59 06:59 06:59 Intake Total 2281 1832 600 Output Total 700 1300 550 Balance 1581 532 50 Weight 90 kg 88.2 kg General appearance: PRESENT: no acute distress Neck exam: ABSENT: JVD Respiratory exam: PRESENT: clear to auscultation elizabeth GI/Abdominal exam: PRESENT: normal bowel sounds, soft. ABSENT: diminished bowel sounds, distended, firm, guarding, rebound, rigid, tenderness Results Laboratory Results: WBC 10.3 10^3/uL (4.0-10.5) 08/21/19 10:43 RBC 2.32 10^6/uL (4.35-5.55) L 08/21/19 10:43 Hgb 8.4 g/dL (13.5-17.0) L 08/21/19 10:43 Hct 24.0 % (37.9-51.0) L 08/21/19 10:43 MCV 103 fl (80-97) H 08/21/19 10:43 MCH 36.3 pg (27.0-33.4) H 08/21/19 10:43 MCHC 35.2 g/dL (32.0-36.0) 08/21/19 10:43 RDW 15.9 % (11.5-14.0) H 08/21/19 10:43 Plt Count 249 10^3/uL (150-450) 08/21/19 10:43 Lymph % (Auto) 5.5 % (13-45) L 08/21/19 10:43 [place] % (Auto) 11.2 % (3-13) 08/21/19 10:43 Eos % (Auto) 2.1 % (0-6) 08/21/19 10:43 Baso % (Auto) 0.3 % (0-2) 08/21/19 10:43 Reticulocyte # 0.047 10^6/uL (0.028-0.122) 08/19/19 05:31 Absolute Neuts (auto) 8.4 10^3/uL (1.7-8.2) H 08/21/19 10:43 Absolute Lymphs (auto) 0.6 10^3/uL (0.5-4.7) 08/21/19 10:43 Absolute Monos (auto) 1.2 10^3/uL (0.1-1.4) 08/21/19 10:43 Absolute Eos (auto) 0.2 10^3/uL (0.0-0.6) 08/21/19 10:43 Absolute Basos (auto) 0.0 10^3/uL (0.0-0.2) 08/21/19 10:43 Total Counted 100 08/20/19 04:30 Seg Neutrophils % 80.9 % (42-78) H 08/21/19 10:43 Seg Neuts % (Manual) 82 % (42-78) H 08/20/19 04:30 Band Neutrophils % 3 % (3-5) 08/20/19 04:30 Lymphocytes % (Manual) 6 % (13-45) L 08/20/19 04:30 Monocytes % (Manual) 8 % (3-13) 08/20/19 04:30 Eosinophils % (Manual) 0 % (0-6) 08/20/19 04:30 Basophils % (Manual) 1 % (0-2) 08/20/19 04:30 Abs Neuts (Manual) 13.5 10^3/uL (1.7-8.2) H 08/20/19 04:30 Abs Lymphs (Manual) 1.0 10^3/uL (0.5-4.7) 08/20/19 04:30 Abs Monocytes (Manual) 1.3 10^3/uL (0.1-1.4) 08/20/19 04:30 Absolute Eos (Manual) 0.0 10^3/uL (0.0-0.6) 08/20/19 04:30 Abs Basophils (Manual) 0.2 10^3/uL (0.0-0.2) 08/20/19 04:30 Nucleated RBCs 1 /100 WBC (0) 08/19/19 05:31 Toxic Granulation SLIGHT 08/19/19 05:31 Dohle Bodies PRESENT 08/19/19 05:31 Platelet Estimate Cancelled 08/21/19 09:52 Platelet Comment ADEQUATE 08/20/19 04:30 Polychromasia SLIGHT 08/20/19 04:30 Anisocytosis 1+ 08/20/19 04:30 Macrocytosis 1+ 08/20/19 04:30 Dana Cells SLIGHT 08/20/19 04:30 Retic Count (auto) 2.15 % (0.66-2.85) 08/19/19 05:31 PT 15.6 SEC (11.4-15.4) H 08/18/19 18:20 INR 1.23 08/18/19 18:20 VBG pH 7.39 (7.30-7.42) 08/18/19 19:41 VBG pCO2 34.8 mmHg (35-63) L 08/18/19 19:41 VBG HCO3 20.6 mmol/L (20-32) 08/18/19 19:41 VBG Base Excess -3.6 mmol/L 08/18/19 19:41 Sodium 140.2 mmol/L (137-145) 08/21/19 09:52 Potassium 4.0 mmol/L (3.6-5.0) 08/21/19 09:52 Chloride 112 mmol/L (98-107) H 08/21/19 09:52 Carbon Dioxide 19 mmol/L (22-30) L 08/21/19 09:52 Anion Gap 9 (5-19) 08/21/19 09:52 BUN 17 mg/dL (7-20) 08/21/19 09:52 Creatinine 1.60 mg/dL (0.52-1.25) H 08/21/19 09:52 Est GFR ( Amer) 50 (>60) L 08/21/19 09:52 Est GFR (MDRD) Non-Af 41 (>60) L 08/21/19 09:52 Glucose 128 mg/dL (75-110) H 08/21/19 09:52 POC Glucose 140 mg/dL (70-110) H 08/21/19 17:19 Lactic Acid 0.5 mmol/L (0.7-2.1) L 08/19/19 00:34 Calcium 7.7 mg/dL (8.4-10.2) L 08/21/19 09:52 Magnesium 2.0 mg/dL (1.6-2.3) 08/20/19 04:30 Iron 14.1 ug/dL (49-181) L 08/19/19 05:31 TIBC 207 ug/dL (250-450) L 08/19/19 05:31 % Saturation 7 % 08/19/19 05:31 Ferritin 402.00 ng/mL (17.9-464.0) 08/19/19 05:31 Total Bilirubin 0.4 mg/dL (0.2-1.3) 08/21/19 09:52 Direct Bilirubin 0.1 mg/dL (0.0-0.4) 08/21/19 09:52 Neonat Total Bilirubin Not Reportable 08/21/19 09:52 Neonat Direct Bilirubin Not Reportable 08/21/19 09:52 Neonat Indirect Bili Not Reportable 08/21/19 09:52 AST 24 U/L (17-59) 08/21/19 09:52 ALT 14 U/L (<50) 08/21/19 09:52 Alkaline Phosphatase 63 U/L (38-126) 08/21/19 09:52 Troponin I < 0.012 ng/mL 08/18/19 18:20 NT-Pro-B Natriuret Pep 1480 pg/mL (<450) H 08/18/19 18:20 Total Protein 6.0 g/dL (6.3-8.2) L 08/21/19 09:52 Albumin 3.0 g/dL (3.5-5.0) L 08/21/19 09:52 Lipase 240.2 U/L (23-300) 08/18/19 18:20 Vitamin B12 506.0 pg/mL (239-931) 08/19/19 05:31 Vitamin D 25-Hydroxy 39.9 ng/mL (14.7-68.3) 08/20/19 04:30 Folate > 20.00 ng/mL (>2.76) 08/19/19 05:31 PTH Intact 160.8 pg/mL (10.0-65.0) H 08/20/19 04:30 Urine Color YELLOW 08/18/19 19:41 Urine Appearance CLEAR 08/18/19 19:41 Urine pH 5.0 (5.0-9.0) 08/18/19 19:41 Ur Specific [place] 1.012 08/18/19 19:41 Urine Protein 100 mg/dL (NEGATIVE) H 08/18/19 19:41 Urine Glucose (UA) NEGATIVE mg/dL (NEGATIVE) 08/18/19 19:41 Urine Ketones NEGATIVE mg/dL (NEGATIVE) 08/18/19 19:41 Urine Blood SMALL (NEGATIVE) H 08/18/19 19:41 Urine Nitrite NEGATIVE (NEGATIVE) 08/18/19 19:41 Urine Bilirubin NEGATIVE (NEGATIVE) 08/18/19 19:41 Urine Urobilinogen NEGATIVE mg/dL (<2.0) 08/18/19 19:41 Ur Leukocyte Esterase NEGATIVE (NEGATIVE) 08/18/19 19:41 Urine WBC (Auto) 0 /HPF 08/18/19 19:41 Urine RBC (Auto) 1 /HPF 08/18/19 19:41 Squamous Epi Cells Auto <1 /HPF 08/18/19 19:41 Urine Mucus (Auto) RARE /LPF 08/18/19 19:41 Urine Ascorbic Acid 40 (NEGATIVE) H 08/18/19 19:41 Slides for Path Review Cancelled 08/21/19 09:52 08/18/19 08/18/19 18:20 18:20 Troponin I < 0.012 NT-Pro-B Natriuret Pep 1480 H Impressions: Chest X-Ray 08/18/19 18:33 IMPRESSION: Cardiomegaly with pulmonary vascular congestion but no emmanuel pulmonary edema. Abdomen/Pelvis CT 08/18/19 19:36 IMPRESSION: Findings are consistent with acute, uncomplicated diverticulitis involving the distal descending/proximal sigmoid colon. Widespread osseous metastatic disease. Moderately sized hiatal hernia. Trace bilateral pleural effusions with bibasilar consolidation, presumably atelectasis. Nonobstructive right nephrolithiasis. TECHNICAL DOCUMENTATION: Quality ID # [id number]: Final reports with documentation of one or more dose reduction techniques (e.g., Automated exposure control, adjustment of the mA and/or kV according to patient size, use of iterative reconstruction technique) copyright 2011 [employer]- All Rights Reserved Head CT 08/18/19 19:36 IMPRESSION: Atrophy. Advanced white matter disease. 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 There are no acute intracranial findings. Plan Time Spent: Greater than 30 Minutes Stroke Is this a Stroke Patient?: No Acute Heart Failure - Is this a Heart Failure Patient?: No
[2019-08-21] MEDS: METRONIDAZOLE 500 MG TABLET PO SCH (21:19)
[2019-08-22] MEDS: METRONIDAZOLE 500 MG TABLET PO SCH (06:48)
[2019-08-22 08:06] VITALS: BP 145/45
[2019-08-22] MEDS: FERROUS SULFATE 325 MG TABLET PO SCH (09:05)
[2019-08-22] MEDS: CALCIUM CARBONATE 500 MG TABLET PO SCH (09:05)
[2019-08-22] MEDS: SERTRALINE HCL 50 MG TABLET PO SCH (09:05)
[2019-08-22] MEDS: CYANOCOBALAMIN (VITAMIN B-12) 1,000 MCG TABLET PO SCH (09:05)
[2019-08-22] MEDS: CALCITRIOL 0.25 MCG CAPSULE PO SCH (09:05)
[2019-08-22] MEDS: METOPROLOL SUCCINATE 25 MG TAB.SR.24H PO SCH (09:05)
[2019-08-22] MEDS ORDERED: CIPROFLOXACIN HCL 500 MG TABLET PO SCH (10:00)
== END 2019-08-22 10:37 | disposition home or self-care (01) | DRG 392 ==
LOC: ER 18:02 → EH 22:00 → 3N 08-19 01:56 → 5 08-19 15:48
PROVIDERS: ADMIT Internal Medicine; ATTEND Internal Medicine
DX: K57.30 Diverticulosis of large intestine without perforation or abscess without bleeding (principal); C79.51 Secondary malignant neoplasm of bone; I48.20 Chronic atrial fibrillation, unspecified; G70.00 Myasthenia gravis without (acute) exacerbation; E83.51 Hypocalcemia; D63.1 Anemia in chronic kidney disease; F03.90 Unspecified dementia, unspecified severity, without behavioral disturbance, psychotic disturbance, mood disturbance, and anxiety; E11.22 Type 2 diabetes mellitus with diabetic chronic kidney disease; C61 Malignant neoplasm of prostate; N18.3 Chronic kidney disease, stage 3 (moderate); E66.9 Obesity, unspecified; G47.33 Obstructive sleep apnea (adult) (pediatric); E78.5 Hyperlipidemia, unspecified; J44.9 Chronic obstructive pulmonary disease, unspecified; K21.9 Gastro-esophageal reflux disease without esophagitis; M19.90 Unspecified osteoarthritis, unspecified site; M10.9 Gout, unspecified; F32.9 Major depressive disorder, single episode, unspecified; K59.00 Constipation, unspecified; R11.2 Nausea with vomiting, unspecified; Z79.4 Long term (current) use of insulin; Z79.01 Long term (current) use of anticoagulants; Z86.14 Personal history of Methicillin resistant Staphylococcus aureus infection; Z95.2 Presence of prosthetic heart valve; Z87.891 Personal history of nicotine dependence; Z79.52 Long term (current) use of systemic steroids; Z88.8 Allergy status to other drugs, medicaments and biological substances; Z88.6 Allergy status to analgesic agent
CPT/HCPCS: 36415; 70450; 71045; 74176; 80048; 80053; 81001; 82040; 82306; 82310; 82607; 82728; 82746; 82803; 82962; 83540; 83550; 83605; 83690; 83735; 83880; 83970; 84484; 85025; 85027; 85045; 85610; 87040; 87070; 87324; 87449; 93005; 93010; 94660; 94799; 96360; 96361; 99285; C9113; G0378; J0610; J1644; J1815; J2185; J2543; J3480; J3490; J7030; J7060; J7120; J7500; J7512

== ENCOUNTER 2019-09-03 16:12 | Inpatient (IN) | payer OTHER, MEDICARE ==
[2019-09-03 17:14] LABS: ALBUMIN 3.7 g/dL (3.5-5.0); ALKALINE PHOSPHATASE 74 U/L (38-126); ANION GAP 13 (5-19); ASPARTATE AMINO TRANSFERASE 30 U/L (17-59); BILIRUBIN,DIRECT 0.3 mg/dL (0.0-0.4); BILIRUBIN,TOTAL 0.7 mg/dL (0.2-1.3); BLOOD UREA NITROGEN 29 mg/dL (7-20); CALCIUM 8.7 mg/dL (8.4-10.2); CARBON DIOXIDE 20 mmol/L (22-30); CHLORIDE 106 mmol/L (98-107); GLUCOSE 121 mg/dL (75-110); POTASSIUM 4.2 mmol/L (3.6-5.0); TOTAL PROTEIN 6.9 g/dL (6.3-8.2)
[2019-09-03 17:52] LABS: HEMATOCRIT 27.1 % (37.9-51.0); HEMOGLOBIN 9.2 g/dL (13.5-17.0); MEAN CORPUSCULAR HEMOGLOBIN 34.7 pg (27.0-33.4); MEAN CORPUSCULAR HGB CONC 33.9 g/dL (32.0-36.0); MEAN CORPUSCULAR VOLUME 102 fl (80-97); PLATELET COUNT 241 10^3/uL (150-450); RED BLOOD COUNT 2.65 10^6/uL (4.35-5.55); RED CELL DISTRIBUTION WIDTH 16.2 % (11.5-14.0); WHITE BLOOD COUNT 21.8 10^3/uL (4.0-10.5)
[2019-09-03] MEDS ORDERED: ACETAMINOPHEN 325 MG TABLET PO ONE (18:07)
[2019-09-03 18:19] LABS: ABSOLUTE LYMPHOCYTES# (MANUAL) 0.9 10^3/uL (0.5-4.7); ABSOLUTE MONOCYTES # (MANUAL) 1.5 10^3/uL (0.1-1.4); ANISOCYTOSIS 1+; BASOPHILS % (MANUAL) 0 % (0-2); EOSINOPHILS % (MANUAL) 0 % (0-6); LYMPHOCYTES % (MANUAL) 4 % (13-45); MONOCYTES % (MANUAL) 7 % (3-13); PLATELET COMMENT ADEQUATE; SEGMENTED NEUTROPHILS % (MAN) 89 % (42-78); TOTAL CELLS COUNTED 100
[2019-09-03 18:51] LABS: APPEARANCE,URINE CLEAR; BILIRUBIN,URINE NEGATIVE (NEGATIVE); COLOR,URINE YELLOW; GLUCOSE, URINE NEGATIVE (NEGATIVE); KETONES,URINE NEGATIVE (NEGATIVE); LEUKOCYTE ESTERASE,URINE NEGATIVE (NEGATIVE); NITRITE,URINE NEGATIVE (NEGATIVE); PROTEIN,URINE 30 mg/dL (NEGATIVE); URINE SPECIFIC GRAVITY 1.013; UROBILINOGEN,URINE NEGATIVE mg/dL (<2.0)
[2019-09-03 20:25] LABS: C DIFFICILE GDH POSITIVE (NEGATIVE)
[2019-09-03] MEDS ORDERED: NORMAL SALINE 1000 ML 1,000 ML IV ONE (20:56)
[2019-09-03] MEDS ORDERED: METRONIDAZOLE 500 MG/NS RTU 500 MG/100 ML RTUPB IV ONE (20:57)
--- NOTE | 2019-09-03 21:12 | ER Document Report ---
ED General - General Chief Complaint: General Weakness Stated Complaint: WEAKNESS,DIARRHEA Time Seen by Provider: 09/03/19 20:03 Primary Care Provider: JUAN LOPEZ MD [Primary Care Provider] - Follow up as needed TRAVEL OUTSIDE OF THE [place] IN LAST 30 DAYS: No - HPI Notes: 88-year-old male discharged from the hospital here about 2 weeks ago after inpatient treatment for acute diverticulitis with IV antibiotics now presenting with a chief complaint of watery diarrhea starting yesterday accompanied by weakness and difficulty standing. Intermittent abdominal cramping which is generalized. He has had some streaks of blood in his stool and has been passing a lot of mucoid material with the stools. Denies fever or chills. Denies vomiting or nausea at this time. Patient's primary care physician is Dr. Juan Valentine. - Related Data Allergies/Adverse Reactions: bumetanide [From Bumex] Allergy (Verified 06/19/18 17:53) ivermectin [Ivermectin] Allergy (Verified 06/19/18 17:53) oxycodone HCl [From Percocet] Allergy (Verified 06/19/18 17:53) valsartan [From Diovan] Allergy (Verified 06/19/18 17:53) Home Medications: Novolin, prednisone, imuran, metoprolol, lasix, zoloft, Vit B 12, Vit D3, calcium, biotin, metamucil, I-Caps, Junivia, Xarelto, lipitor, Past Medical History - General Information source: Patient, Relative - Social History Smoking Status: Former Smoker Frequency of alcohol use: None Drug Abuse: None Lives with: Family - How much bleeding is she doing okay put pads underneath her recheck her vital signs and come reporting to me bruits Family History: None, Reviewed & Not Pertinent, Other - both parents of "old age" Patient has suicidal ideation: No Patient has homicidal ideation: No - Past Medical History Cardiac Medical History: Reports: Hx Atrial Fibrillation, Hx Hypercholesterolemia, Hx Hypertension, Hx Heart Murmur - Aortic valvular disease Pulmonary Medical History: Reports: Hx COPD, Hx Pneumonia, Hx Sleep Apnea Neurological Medical History: Denies: Hx Seizures Endocrine Medical History: Reports: Hx Diabetes Mellitus Type 2. Denies: Hx Diabetes Mellitus Type 1, Hx Hyperthyroidism, Hx Hypothyroidism Renal/ Medical History: Denies: Hx Peritoneal Dialysis Malignancy Medical History: Reports Hx Skin Cancer GI Medical History: Reports: Hx Gastroesophageal Reflux Disease. Denies: Hx Cirrhosis, Hx Crohn's Disease, Hx Hepatitis, Hx Ulcerative Colitis Musculoskeletal Medical History: Reports Hx Arthritis, Reports Hx Gout Skin Medical History: Denies Hx Eczema, Denies Hx MRSA, Denies Hx Psoriasis Psychiatric Medical History: Reports: Hx Depression Infectious Medical History: Reports: Hx MRSA - Pneumonia in 2010. Denies: Hx Hepatitis Past Surgical History: Reports: Hx Cardiac Catheterization, Hx Orthopedic Surgery - Left knee prosthesis 1995, right knee prosthesis x2 since 1999. Cataract, Hx Valve Replacement - Aortic valve - Immunizations Hx Diphtheria, Pertussis, Tetanus Vaccination: No Hx Pneumococcal Vaccination: 08/19/05 Review of Systems - Review of Systems Notes: Constitutional: Negative for fever. HENT: Negative for sore throat. Eyes: Negative for visual changes. Cardiovascular: Negative for chest pain. Respiratory: Negative for shortness of breath. Gastrointestinal: As per HPI. Genitourinary: Negative for dysuria. Musculoskeletal: Negative for back pain. Skin: Negative for rash. Neurological: Negative for headaches, focal weakness or numbness. 10 point ROS negative except as marked above and in HPI. Physical Exam - Vital signs Vitals: Pulse BP 93 132/54 H 09/03/19 16:18 09/03/19 16:18 - Notes Notes: GENERAL: Frail elderly man who appears weak and dehydrated. SKIN: Pale. Decreased turgor no rashes. HEAD: Normocephalic atraumatic. EYES: Somewhat sunken consistent with dehydration PERRLA. EOMI. Conjunctivae and sclerae clear. EARS: CANALS AND TMS CLEAR. NOSE: CLEAR. MOUTH: Moist mucosa. Good dentition. No stridor or edema. No drooling. NECK: Supple. No masses or thyromegaly. No adenopathy. Carotids 2+ without bruits. No JVD. BACK: Symmetrical without tenderness. CHEST: Respirations unlabored. Breath sounds clear and symmetrical. HEART: Regular rhythm. No murmur gallop or rub. ABDOMEN: Mild generalized distention. Soft nontender without masses, organom egaly or rebound. Bowel sounds hyperactive. No bruits. GENITALIA: Deferred. EXTREMITIES: No edema. No calf tenderness. Cap refill less than 1.5 seconds. Dorsalis pedis and posterior tibial pulses 3+ and symmetrical. NEUROLOGICAL: GCS 15. Alert and oriented x3. Unable to stand due to genera lized weakness. Fluent speech. Cranial nerves II through XII intact. Sensorimotor and cerebellar normal. Normal tone. PSYCHIATRIC: Appropriate affect. Course - Re-evaluation Re-evalutation: 09/03/19 21:11 This gentleman probably has C. difficile colitis. Hydrate with normal saline. CT requested. Anticipate admission. Stool specimen has been collected and I have started him on some metronidazole IV. - Vital Signs Vital signs: Temp Pulse Resp BP Pulse Ox 98.7 F 91 19 112/85 93 09/03/19 21:10 09/03/19 21:01 09/03/19 22:37 09/03/19 22:37 09/03/19 22:37 - Laboratory Result Diagrams: 09/03/19 17:39 09/03/19 15:35 Laboratory results interpreted by me: 09/03/19 09/03/19 09/03/19 15:35 16:53 17:39 WBC 21.8 H RBC 2.65 L Hgb 9.2 L Hct 27.1 L MCV 102 H MCH 34.7 H RDW 16.2 H Seg Neuts % (Manual) 89 H Lymphocytes % (Manual) 4 L Abs Neuts (Manual) 19.4 H Abs Monocytes (Manual) 1.5 H Carbon Dioxide 20 L BUN 29 H Creatinine 1.92 H Est GFR ( Amer) 40 L Est GFR (MDRD) Non-Af 33 L Glucose 121 H Urine Protein 30 H Urine Ascorbic Acid 40 H Discharge - Discharge Clinical Impression: Antibiotic-associated colitis, Dehydration, Acute kidney injury Condition: Fair Disposition: ADMITTED INPATIENT Admitting Provider: Mauricio (Hospitalist) Unit Admitted: Telemetry Referrals: JUAN LOPEZ MD [Primary Care Provider] - Follow up as needed
--- NOTE | 2019-09-03 22:54 | RADIOLOGY REPORT (SQ) ---
CT abdomen and pelvis with contrast on 09/03/2019 at 10:21 PM CLINICAL INDICATION: Generalized abdominal pain TECHNIQUE: Multiple axial images are obtained throughout the abdomen and pelvis following the administration of IV contrast, 98 mL of Omnipaque 300 contrast was administered intravenously without complication. This exam was performed according to our departmental dose-optimization program, which includes automated exposure control, adjustment of the mA and/or kV according to patient size and/or use of iterative reconstruction technique. Total DLP is 1726.64 mGy*cm. COMPARISON: 08/18/2019 FINDINGS: Abdomen: There is minimal basilar atelectasis and/or scarring. There is a moderate size hiatal hernia. Vascular calcifications are noted. There is a nonobstructing right renal stone. Small bilateral renal cysts are noted. The solid abdominal organs are otherwise unremarkable. There is no abdominal adenopathy. There is no free fluid or free air within the abdomen. There is bowel wall thickening of essentially the entire colon including the rectum consistent with diffuse colitis. This is consistent with likely either an infectious colitis or pseudomembranous colitis. Please correlate clinically. There is diverticulosis. The abdominal portion of the GI tract is otherwise unremarkable. Pelvis: There is no free fluid in the pelvis. There is no pelvic adenopathy. There is diverticulosis. Pelvic portion of the GI tract including the appendix is otherwise unremarkable. Multiple stable sclerotic lesions are noted in the visualized skeleton consistent with stable sclerotic bony metastatic disease. IMPRESSION: 1. Findings consistent with diffuse colitis, most likely either an infectious colitis or pseudomembranous colitis and please correlate clinically. 2. Diverticulosis. 3. Moderate size hiatal hernia. 4. Stable sclerotic bony metastatic disease. 5. Right nephrolithiasis.
[2019-09-04] MEDS ORDERED: ONDANSETRON HCL INJ/PF 4 MG/2 ML SDV IV PRN (00:02)
[2019-09-04] MEDS ORDERED: LEVALBUTEROL HCL NEB 1.25 MG/3 ML AMPUL NEB PRN (00:02)
[2019-09-04] MEDS ORDERED: ACETAMINOPHEN 325 MG TABLET PO PRN (00:02)
[2019-09-04] MEDS: VANCOMYCIN HCL INJ 500 MG VIAL PO SCH ×5 (00:18→23:01)
[2019-09-04] MEDS: NORMAL SALINE 1000 ML 1,000 ML IV PRN ×4 (00:19→20:23)
[2019-09-04 01:27] LABS: ANION GAP 8 (5-19); BLOOD UREA NITROGEN 25 mg/dL (7-20); CALCIUM 7.7 mg/dL (8.4-10.2); CARBON DIOXIDE 21 mmol/L (22-30); CHLORIDE 108 mmol/L (98-107); GLUCOSE 122 mg/dL (75-110); POTASSIUM 3.5 mmol/L (3.6-5.0)
[2019-09-04] MEDS: HEPARIN SOD (PORCINE) 5,000 UNIT/ML 1 ML VIAL SUBCUT SCH ×2 (05:13→13:55)
[2019-09-04 05:34] LABS: HEMATOCRIT 27.8 % (37.9-51.0); HEMOGLOBIN 9.5 g/dL (13.5-17.0); MEAN CORPUSCULAR HEMOGLOBIN 35.1 pg (27.0-33.4); MEAN CORPUSCULAR HGB CONC 34.2 g/dL (32.0-36.0); MEAN CORPUSCULAR VOLUME 103 fl (80-97); PLATELET COUNT 203 10^3/uL (150-450); RED BLOOD COUNT 2.71 10^6/uL (4.35-5.55); RED CELL DISTRIBUTION WIDTH 16.3 % (11.5-14.0); WHITE BLOOD COUNT 20.5 10^3/uL (4.0-10.5)
[2019-09-04] MEDS ORDERED: IRON SUCROSE COMPLEX INJ/PF 100 MG/5 ML SDV IV ONE (05:34)
--- NOTE | 2019-09-04 05:41 | PDOC H&P ---
History of Present Illness Admission Date/PCP: 09/04/19 00:20 SHAILA LOPEZ MD Patient complains of: Nausea and diarrhea History of Present Illness: MATTEO RAIN is a 88 year old male with a history of atrial fibrillation on Xarelto, dementia, diabetes, obstructive sleep apnea, prostate cancer with bony mets stage, stage III CKD and diverticulitis. He presents with 5 days of nausea, diarrhea and poor p.o. intake. In the emergency department he is found to have colitis by CT without abscess or perforation, leukocytosis and C. difficile positive screen. He started on Flagyl and referred to the hospitalist for admission. Admits previous episode and is recently been on antibiotics for diverticulitis. Past Medical History Cardiac Medical History: Reports: Atrial Fibrillation, Hyperlipidema, Hypertension, Heart Murmur - Aortic valvular disease Pulmonary Medical History: Reports: Chronic Obstructive Pulmonary Disease (COPD), Pneumonia, Sleep Apnea Neurological Medical History: Denies: Seizures Endocrine Medical History: Reports: Diabetes Mellitus Type 2 Denies: Diabetes Mellitus Type 1, Hyperthyroidism, Hypothyroidism Malignancy Medical History: Reports: Skin Cancer GI Medical History: Reports: Gastroesophageal Reflux Disease Denies: Cirrhosis, Crohn's Disease, Hepatitis, Ulcerative Colitis Musculoskeltal Medical History: Reports: Arthritis, Gout Skin Medical History: Denies: Eczema, Psoriasis Psychiatric Medical History: Reports: Depression Hematology: Reports: Anemia Denies: Bleeding Tendencies Infectious Medical History: Reports: Methicillin-Resistant Staph Aureus - Pneumonia in 2010 Past Surgical History Past Surgical History: Reports: Cardiac Catheterization, Orthopedic Surgery - Left knee prosthesis 1995, right knee prosthesis x2 since 1999. Cataract, Valve Replacement - Aortic valve Social History Information Source: Patient, [facility] Records Lives with: Family - How much bleeding is she doing okay put pads underneath her recheck her vital signs and come reporting to me bruits Smoking Status: Former Smoker Frequency of Alcohol Use: None Hx Recreational Drug Use: No Drugs: None Hx Prescription Drug Abuse: No - Advance Directive Resuscitation Status: Full Code Family History Family History: Other - both parents of "old age" Parental Family History Reviewed: Yes Children Family History Reviewed: Yes Sibling(s) Family History Reviewed.: Yes Medication/Allergy Home Medications: Antiox.mv No.10/Omeg3s/Lut/Fidencio [I-Caps with Lutein-[place] 3 Sfg] 1 cap PO BID 07/06/13 Azathioprine [Imuran 50 mg Tablet] 150 mg PO DAILY 07/06/13 Cyanocobalamin (Vitamin B-12) [Vitamin B-12] 1,000 mcg PO DAILY 07/06/13 Prednisone 15 mg PO Q2D 07/06/13 Rivaroxaban [Xarelto 15 mg Tablet] 15 mg PO QPM 07/06/13 Psyllium Husk (with Sugar) [Metamucil Packet] 1 packet PO DAILY 11/07/16 Atorvastatin Calcium [Lipitor 10 mg Tablet] 10 mg PO QPM 08/14/19 Biotin [Dino Biotin] 10,000 mcg PO DAILY 08/14/19 Calcium Carbonate [Calcium] 600 mg PO BID 08/14/19 Cholecalciferol (Vitamin D3) [Vitamin D3] 50 mcg PO DAILY 08/14/19 Furosemide [Lasix 20 mg Tablet] 20 mg PO SUTUWETHSA 08/14/19 Glimepiride [Amaryl 4 mg Tablet] 4 mg PO DAILYP PRN 08/14/19 Hum Insulin NPH/Reg Insulin Hm [Novolin 70-30 100 Unit/ml Vial] 12 unit SQ BID 08/14/19 Linagliptin [Tradjenta] 5 mg PO QPM 08/14/19 Metoprolol Succinate [Kapspargo Sprinkle] 12.5 mg PO SUTUWETHSA 08/14/19 Sertraline HCl 50 mg PO DAILY 08/14/19 Ciprofloxacin HCl [Cipro] 500 mg PO DAILY 4 Days #4 tablet 08/21/19 Ferrous Sulfate [Feosol 325 mg Tablet] 325 mg PO DAILY #30 tablet 08/21/19 Metronidazole [Flagyl 500 mg Tablet] 500 mg PO TID 7 Days tablet 08/21/19 Allergies/Adverse Reactions: bumetanide [From Bumex] Allergy (Verified 06/19/18 17:53) ivermectin [Ivermectin] Allergy (Verified 06/19/18 17:53) oxycodone HCl [From Percocet] Allergy (Verified 06/19/18 17:53) valsartan [From Diovan] Allergy (Verified 06/19/18 17:53) Review of Systems Constitutional: PRESENT: as per HPI, anorexia, chills, fatigue, fever(s), weakness, weight loss Eyes: ABSENT: visual disturbances Ears: ABSENT: hearing changes Cardiovascular: ABSENT: chest pain, dyspnea on exertion, edema, orthropnea, palpitations Respiratory: ABSENT: cough, hemoptysis Gastrointestinal: PRESENT: as per HPI, abdominal pain, bloating, diarrhea, nausea Genitourinary: ABSENT: dysuria, hematuria Musculoskeletal: ABSENT: joint swelling Integumentary: ABSENT: rash, wounds Neurological: ABSENT: abnormal gait, abnormal speech, confusion, dizziness, focal weakness, syncope Psychiatric: PRESENT: as per HPI Endocrine: ABSENT: cold intolerance, heat intolerance, polydipsia, polyuria Hematologic/Lymphatic: ABSENT: easy bleeding, easy bruising Physical Exam Vital Signs: Temp Pulse Resp BP Pulse Ox 98.0 F 101 H 18 123/55 L 94 09/04/19 02:28 09/04/19 02:28 09/04/19 02:28 09/04/19 02:28 09/04/19 02:28 Intake & Output 09/02/19 09/03/19 09/04/19 11:59 11:59 11:59 Intake Total 2100 Balance 2100 Weight 82.2 kg General appearance: PRESENT: cooperative, severe distress, well-developed, well- nourished Head exam: PRESENT: atraumatic, normocephalic Eye exam: PRESENT: conjunctiva pink, EOMI, PERRLA. ABSENT: scleral icterus Ear exam: PRESENT: normal external ear exam Mouth exam: PRESENT: dry mucosa, tongue midline Neck exam: ABSENT: carotid bruit, JVD, lymphadenopathy, thyromegaly Respiratory exam: PRESENT: accessory muscle use, crackles, prolonged expiratory phas, tachypnea Cardiovascular exam: PRESENT: RRR. ABSENT: diastolic murmur, rubs, systolic murmur Pulses: PRESENT: normal dorsalis pedis pul Vascular exam: PRESENT: normal capillary refill GI/Abdominal exam: PRESENT: distended, hyperactive bowel sounds, normal bowel sounds, soft, tenderness. ABSENT: guarding, mass, organolmegaly, rebound Rectal exam: PRESENT: deferred Extremities exam: PRESENT: full ROM, +1 edema. ABSENT: clubbing Neurological exam: PRESENT: alert, awake, oriented to person, oriented to place, oriented to time, oriented to situation, CN II-XII grossly intact. ABSENT: motor sensory deficit Skin exam: PRESENT: dry, intact, warm. ABSENT: cyanosis, rash Results Laboratory Results: 09/04/19 01:01 09/03/19 09/03/19 09/03/19 15:35 15:35 15:35 WBC Cancelled RBC Cancelled Hgb Cancelled Hct Cancelled MCV Cancelled MCH Cancelled MCHC Cancelled RDW Cancelled Plt Count Cancelled Seg Neutrophils % Cancelled Sodium 139.0 Cancelled Potassium 4.2 Cancelled Chloride 106 Cancelled Carbon Dioxide 20 L Cancelled Anion Gap 13 Cancelled BUN 29 H Cancelled Creatinine 1.92 H Cancelled Est GFR ( Amer) 40 L Cancelled Est GFR (Non-Af Amer) Cancelled Glucose 121 H Cancelled Calcium 8.7 Cancelled Magnesium 2.0 Total Bilirubin 0.7 Cancelled AST 30 Cancelled Alkaline Phosphatase 74 Cancelled Total Protein 6.9 Cancelled Albumin 3.7 Cancelled Urine Color Urine Appearance Urine pH Ur Specific Sawyer Urine Protein Urine Glucose (UA) Urine Ketones Urine Blood Urine Nitrite Ur Leukocyte Esterase Urine WBC (Auto) Urine RBC (Auto) 09/03/19 09/03/19 09/04/19 16:53 17:39 01:01 WBC 21.8 H RBC 2.65 L Hgb 9.2 L Hct 27.1 L MCV 102 H MCH 34.7 H MCHC 33.9 RDW 16.2 H Plt Count 241 Seg Neutrophils % Not Reportable Sodium Potassium Chloride Carbon Dioxide Anion Gap BUN Creatinine Est GFR ( Amer) Est GFR (Non-Af Amer) Glucose Calcium Magnesium 1.8 Total Bilirubin AST Alkaline Phosphatase Total Protein Albumin Urine Color YELLOW Urine Appearance CLEAR Urine pH 5.0 Ur Specific Sawyer 1.013 Urine Protein 30 H Urine Glucose (UA) NEGATIVE Urine Ketones NEGATIVE Urine Blood NEGATIVE Urine Nitrite NEGATIVE Ur Leukocyte Esterase NEGATIVE Urine WBC (Auto) 1 Urine RBC (Auto) 0 09/04/19 01:01 WBC RBC Hgb Hct MCV MCH MCHC RDW Plt Count Seg Neutrophils % Sodium 136.9 L Potassium 3.5 L Chloride 108 H Carbon Dioxide 21 L Anion Gap 8 BUN 25 H Creatinine 1.77 H Est GFR ( Amer) 44 L Est GFR (Non-Af Amer) Glucose 122 H Calcium 7.7 L Magnesium Total Bilirubin AST Alkaline Phosphatase Total Protein Albumin Urine Color Urine Appearance Urine pH Ur Specific Sawyer Urine Protein Urine Glucose (UA) Urine Ketones Urine Blood Urine Nitrite Ur Leukocyte Esterase Urine WBC (Auto) Urine RBC (Auto) Impressions: Abdomen/Pelvis CT 01/16/20 21:06 IMPRESSION: 1. Findings consistent with diffuse colitis, most likely either an infectious colitis or pseudomembranous colitis and please correlate clinically. 2. Diverticulosis. 3. Moderate size hiatal hernia. 4. Stable sclerotic bony metastatic disease. 5. Right nephrolithiasis. Assessment and Plan - Diagnosis (1) C. difficile colitis Is this a current diagnosis for this admission?: Yes Plan: Patient tolerating p.o. vancomycin, IV fluids, clear liquids as tolerated, follow-up CBC (2) CKD stage 3 due to type 2 diabetes mellitus Is this a current diagnosis for this admission?: Yes Plan: At baseline, avoid nephrotoxic meds and doses, follow-up chemistry (3) Diabetes Qualifiers: Is this a current diagnosis for this admission?: Yes Plan: Humalog sliding scale as needed (4) Nausea & vomiting Is this a current diagnosis for this admission?: Yes Plan: Secondary to #1, symptomatic management (5) Systemic inflammatory response syndrome (SIRS) Is this a current diagnosis for this admission?: Yes Plan: Secondary to #1, follow-up vitals every 4, IV fluid challenge underway - Time Time Spent with patient: 25-34 minutes - Inpatient Certification Medical Necessity: Need Close Monitoring Due to Risk of Patient Decompensation
[2019-09-04 05:54] LABS: ABSOLUTE LYMPHOCYTES# (MANUAL) 0.8 10^3/uL (0.5-4.7); ABSOLUTE MONOCYTES # (MANUAL) 1.4 10^3/uL (0.1-1.4); ANISOCYTOSIS 1+; BASOPHILS % (MANUAL) 0 % (0-2); EOSINOPHILS % (MANUAL) 0 % (0-6); LYMPHOCYTES % (MANUAL) 4 % (13-45); MONOCYTES % (MANUAL) 7 % (3-13); PLATELET COMMENT ADEQUATE; SEGMENTED NEUTROPHILS % (MAN) 89 % (42-78); TOTAL CELLS COUNTED 100
[2019-09-04] MEDS: POTASSI CL 20 MEQ/50 ML RIDER 20 MEQ/50 ML RTUPB IV SCH ×2 (08:17→10:16)
[2019-09-04] MEDS ORDERED: DEXTROSE 50%-WATER 25 GM/50 ML DISP.SYRIN IV PRN ×2 (18:30)
[2019-09-04] MEDS ORDERED: DEXTROSE 40% GEL 15 GM TUBE PO PRN ×2 (18:30)
[2019-09-04] MEDS ORDERED: GLUCAGON,HUMAN RECOMB 1 MG INJ IM PRN (18:30)
[2019-09-04] MEDS ORDERED: CALCIUM CARBONATE 500 MG TABLET PO ONE (18:30)
[2019-09-04] MEDS ORDERED: CALCIUM GLUCONATE 1000 MG/10 ML INJ IV ONE (18:31)
[2019-09-04] MEDS: RIVAROXABAN 15 MG TABLET PO SCH ×2 (20:11→20:29)
[2019-09-04] MEDS: INSULIN LISPRO 100 UNIT/ML 3 ML VIAL SUBCUT SCH (21:07)
[2019-09-04] MEDS: ATORVASTATIN CALCIUM 10 MG TABLET PO SCH (22:59)
[2019-09-05] MEDS: VANCOMYCIN HCL INJ 500 MG VIAL PO SCH ×3 (05:52→18:18)
[2019-09-05 05:58] LABS: HEMATOCRIT 23.4 % (37.9-51.0); HEMOGLOBIN 8.1 g/dL (13.5-17.0); MEAN CORPUSCULAR HEMOGLOBIN 35.4 pg (27.0-33.4); MEAN CORPUSCULAR HGB CONC 34.8 g/dL (32.0-36.0); MEAN CORPUSCULAR VOLUME 102 fl (80-97); PLATELET COUNT 167 10^3/uL (150-450); RED CELL DISTRIBUTION WIDTH 16.2 % (11.5-14.0); WHITE BLOOD COUNT 15.6 10^3/uL (4.0-10.5)
[2019-09-05 06:21] LABS: ALBUMIN 2.4 g/dL (3.5-5.0); ALKALINE PHOSPHATASE 54 U/L (38-126); ANION GAP 10 (5-19); ASPARTATE AMINO TRANSFERASE 23 U/L (17-59); BILIRUBIN,DIRECT 0.2 mg/dL (0.0-0.4); BILIRUBIN,TOTAL 0.4 mg/dL (0.2-1.3); BLOOD UREA NITROGEN 15 mg/dL (7-20); CARBON DIOXIDE 16 mmol/L (22-30); CHLORIDE 114 mmol/L (98-107); GLUCOSE 84 mg/dL (75-110); POTASSIUM 3.2 mmol/L (3.6-5.0); TOTAL PROTEIN 5.1 g/dL (6.3-8.2)
[2019-09-05 06:25] LABS: ABSOLUTE LYMPHOCYTES# (MANUAL) 0.8 10^3/uL (0.5-4.7); ABSOLUTE MONOCYTES # (MANUAL) 1.4 10^3/uL (0.1-1.4); BASOPHILS % (MANUAL) 0 % (0-2); EOSINOPHILS % (MANUAL) 0 % (0-6); LYMPHOCYTES % (MANUAL) 5 % (13-45); MONOCYTES % (MANUAL) 9 % (3-13); SEGMENTED NEUTROPHILS % (MAN) 86 % (42-78); TOTAL CELLS COUNTED 100
[2019-09-05 06:26] LABS: ANISOCYTOSIS 1+; BURR CELLS SLIGHT; PLATELET COMMENT ADEQUATE; POIKILOCYTOSIS SLIGHT
[2019-09-05 06:47] LABS: CALCIUM 6.9 mg/dL (8.4-10.2)
[2019-09-05] MEDS: INSULIN LISPRO 100 UNIT/ML 3 ML VIAL SUBCUT SCH ×4 (07:24→22:00)
[2019-09-05] MEDS ORDERED: POTASSIUM CHLORIDE 10 MEQ TABLET.ER PO ONE (07:29)
[2019-09-05] MEDS ORDERED: CALCIUM GLUCONATE 1000 MG/10 ML INJ IV ONE (07:29)
[2019-09-05] MEDS: CALCIUM CARBONATE 500 MG TABLET PO SCH ×2 (11:45→18:17)
[2019-09-05] MEDS: CHOLECALCIFEROL (D3) 400 UNIT TABLET PO SCH (11:45)
[2019-09-05] MEDS: SERTRALINE HCL 50 MG TABLET PO SCH (11:46)
[2019-09-05] MEDS: POTASSIUM CHLORIDE 10 MEQ TABLET.ER PO SCH ×2 (11:46→21:30)
--- NOTE | 2019-09-05 13:54 | PDOC PROGRESS REPORT ---
Subjective Progress Note for:: 09/05/19 Subjective:: Patient denies any abdominal pain today. Said that it was occurring earlier but now on during time of encounter. Still having multiple bouts of diarrhea around 15-20 episodes reported in the past 24 hours. Denies any blood in the stool. Denies any nausea vomiting and he is able to tolerate his diet now. Okay with diet been escalated. Reason For Visit: C DIFF COLITIS Physical Exam Vital Signs: Temp Pulse Resp BP Pulse Ox 97.7 F 83 20 138/60 H 95 09/05/19 08:08 09/05/19 08:08 09/05/19 08:08 09/05/19 08:08 09/05/19 08:08 Intake & Output 09/04/19 09/05/19 09/06/19 06:59 06:59 06:59 Intake Total 2210 3492 734 Output Total 300 250 Balance 1910 3242 734 Weight 82.5 kg 85.1 kg General appearance: PRESENT: no acute distress, cooperative Neck exam: ABSENT: JVD Respiratory exam: PRESENT: clear to auscultation elizabeth, unlabored. ABSENT: tachypnea, wheezes Cardiovascular exam: PRESENT: RRR, +S1, +S2. ABSENT: tachycardia GI/Abdominal exam: PRESENT: hyperactive bowel sounds, soft. ABSENT: rebound, r igid, tenderness Neurological exam: PRESENT: alert, awake, oriented to person, oriented to place, oriented to time, oriented to situation Results Laboratory Results: 09/05/19 05:12 09/05/19 05:12 09/05/19 09/05/19 09/05/19 05:12 05:12 05:12 WBC 15.6 H RBC 2.30 L Hgb 8.1 L Hct 23.4 L MCV 102 H MCH 35.4 H MCHC 34.8 RDW 16.2 H Plt Count 167 Seg Neutrophils % Not Reportable Sodium 139.6 Potassium 3.2 L Chloride 114 H Carbon Dioxide 16 L Anion Gap 10 BUN 15 Creatinine 1.53 H Est GFR ( Amer) 52 L Glucose 84 Calcium 6.9 L* Magnesium 1.7 Total Bilirubin 0.4 AST 23 Alkaline Phosphatase 54 Total Protein 5.1 L Albumin 2.4 L Impressions: Abdomen/Pelvis CT 09/03/19 21:06 IMPRESSION: 1. Findings consistent with diffuse colitis, most likely either an infectious colitis or pseudomembranous colitis and please correlate clinically. 2. Diverticulosis. 3. Moderate size hiatal hernia. 4. Stable sclerotic bony metastatic disease. 5. Right nephrolithiasis. Assessment and Plan - Diagnosis (1) C. difficile colitis Is this a current diagnosis for this admission?: Yes Plan: Vancomycin p.o. 250 mg every 6 hours IV fluid hydration Hopefully, diarrhea will start to improve soon with treatment of C. difficile. In the meantime hold Lasix to avoid overt dehydration and replenish electrolytes. Antiemetics, advance diet to mechanical soft. 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 Monitor Accu-Cheks. Avoid nephrotoxic medications. Creatinine at baseline. IV hydration to prevent STEPHANIE. (3) Normal anion gap metabolic acidosis Is this a current diagnosis for this admission?: Yes Plan: Secondary to bicarbonate loss from profuse diarrhea. Continue to administer IV fluids. Monitor BMP. (4) Hypocalcemia Is this a current diagnosis for this admission?: Yes Plan: Secondary to diarrhea as well as CKD. Continue calcium supplements. Will give a dose of calcium gluconate today. Corrected calcium is 8.0 (5) Myasthenia gravis Is this a current diagnosis for this admission?: Yes Plan: In light of recent infection, I will continue to hold azathioprine but will continue patient's low-dose prednisone. - Time Time Spent with patient: 15-24 minutes
[2019-09-05] MEDS: NORMAL SALINE 1000 ML 1,000 ML IV PRN (14:25)
[2019-09-05] MEDS: INSULIN REG, HUMAN 100 UNIT/ML 3 ML VIAL (PYX) SUBCUT SCH (18:08)
[2019-09-05] MEDS: MUPIROCIN 2% OINTMENT 22 GM TP SCH ×2 (18:18→21:31)
[2019-09-05] MEDS: RIVAROXABAN 15 MG TABLET PO SCH (18:18)
[2019-09-05] MEDS: ATORVASTATIN CALCIUM 10 MG TABLET PO SCH (21:31)
[2019-09-06] MEDS: NORMAL SALINE 1000 ML 1,000 ML IV PRN ×2 (00:25→18:46)
[2019-09-06] MEDS: VANCOMYCIN HCL INJ 500 MG VIAL PO SCH ×4 (00:45→18:44)
[2019-09-06 05:21] LABS: ABSOLUTE BASOPHILS # (AUTO) 0.1 10^3/uL (0.0-0.2); ABSOLUTE EOSINOPHILS # (AUTO) 0.3 10^3/uL (0.0-0.6); ABSOLUTE LYMPHOCYTES (AUTO) 0.7 10^3/uL (0.5-4.7); ABSOLUTE MONOCYTES (AUTO) 1.2 10^3/uL (0.1-1.4); ABSOLUTE NEUT (AUTO) 8.4 10^3/uL (1.7-8.2); BASOPHILS % (AUTO) 0.5 % (0-2); EOSINOPHILS % (AUTO) 2.7 % (0-6); HEMATOCRIT 23.3 % (37.9-51.0); HEMOGLOBIN 8.1 g/dL (13.5-17.0); LYMPHOCYTES % (AUTO) 6.7 % (13-45); MEAN CORPUSCULAR HEMOGLOBIN 35.4 pg (27.0-33.4); MEAN CORPUSCULAR HGB CONC 34.9 g/dL (32.0-36.0); MEAN CORPUSCULAR VOLUME 101 fl (80-97); MONOCYTES % (AUTO) 11.5 % (3-13); PLATELET COUNT 162 10^3/uL (150-450); RED CELL DISTRIBUTION WIDTH 16.6 % (11.5-14.0); SEGMENTED NEUTROPHILS % (AUTO) 78.6 % (42-78); TOTAL CELLS COUNTED % (AUTO) 100 %; WHITE BLOOD COUNT 10.7 10^3/uL (4.0-10.5)
[2019-09-06 05:37] LABS: ALBUMIN 2.4 g/dL (3.5-5.0); ALKALINE PHOSPHATASE 53 U/L (38-126); ANION GAP 8 (5-19); ASPARTATE AMINO TRANSFERASE 22 U/L (17-59); BILIRUBIN,DIRECT 0.2 mg/dL (0.0-0.4); BILIRUBIN,TOTAL 0.3 mg/dL (0.2-1.3); BLOOD UREA NITROGEN 12 mg/dL (7-20); CARBON DIOXIDE 16 mmol/L (22-30); CHLORIDE 117 mmol/L (98-107); GLUCOSE 85 mg/dL (75-110); POTASSIUM 3.8 mmol/L (3.6-5.0); TOTAL PROTEIN 5.1 g/dL (6.3-8.2)
[2019-09-06] MEDS: INSULIN LISPRO 100 UNIT/ML 3 ML VIAL SUBCUT SCH ×4 (09:19→21:46)
[2019-09-06] MEDS: INSULIN REG, HUMAN 100 UNIT/ML 3 ML VIAL (PYX) SUBCUT SCH (09:20)
[2019-09-06] MEDS: POTASSIUM CHLORIDE 10 MEQ TABLET.ER PO SCH ×2 (09:39→21:43)
[2019-09-06] MEDS: MUPIROCIN 2% OINTMENT 22 GM TP SCH ×2 (09:39→21:46)
[2019-09-06] MEDS: PREDNISONE 5 MG TABLET PO SCH (09:39)
[2019-09-06] MEDS: SERTRALINE HCL 50 MG TABLET PO SCH (09:40)
[2019-09-06] MEDS: CHOLECALCIFEROL (D3) 400 UNIT TABLET PO SCH (09:40)
[2019-09-06] MEDS: CALCIUM CARBONATE 500 MG TABLET PO SCH ×2 (09:40→17:25)
--- NOTE | 2019-09-06 11:10 | PDOC PROGRESS REPORT ---
Subjective Progress Note for:: 09/06/19 Subjective:: Patient still complains of several bouts of diarrhea today. Did not count how many but states he was little bit better than yesterday. Still definitely states that he was over 12 in the past 24 hours. Having mild abdominal pain. Otherwise passing flatus. Denies nausea or vomiting. Able to tolerate diet. Reason For Visit: C DIFF COLITIS Physical Exam Vital Signs: Temp Pulse Resp BP Pulse Ox 98.2 F 77 18 134/60 H 95 09/06/19 07:34 09/06/19 07:34 09/06/19 07:34 09/06/19 07:34 09/06/19 07:34 Intake & Output 09/05/19 09/06/19 09/07/19 06:59 06:59 06:59 Intake Total 4492 1854 Output Total 250 200 Balance 4242 1654 Weight 85.1 kg 85.7 kg General appearance: PRESENT: no acute distress, cooperative Neck exam: ABSENT: JVD Respiratory exam: PRESENT: clear to auscultation elizabeth, symmetrical, unlabored. ABSENT: tachypnea, wheezes Cardiovascular exam: PRESENT: RRR, +S1, +S2. ABSENT: tachycardia GI/Abdominal exam: PRESENT: normal bowel sounds, soft, tenderness. ABSENT: distended, firm, guarding, rebound, rigid Neurological exam: PRESENT: alert, awake, oriented to person, oriented to place, oriented to time, oriented to situation Psychiatric exam: PRESENT: appropriate affect. ABSENT: agitated, anxious Results Laboratory Results: 09/06/19 04:33 09/06/19 04:33 09/06/19 09/06/19 04:33 04:33 WBC 10.7 H RBC 2.30 L Hgb 8.1 L Hct 23.3 L MCV 101 H MCH 35.4 H MCHC 34.9 RDW 16.6 H Plt Count 162 Seg Neutrophils % 78.6 H Sodium 140.5 Potassium 3.8 Chloride 117 H Carbon Dioxide 16 L Anion Gap 8 BUN 12 Creatinine 1.37 H Est GFR ( Amer) 59 L Glucose 85 Calcium 7.0 L* Magnesium 1.8 Total Bilirubin 0.3 AST 22 Alkaline Phosphatase 53 Total Protein 5.1 L Albumin 2.4 L Impressions: Abdomen/Pelvis CT 09/03/19 21:06 IMPRESSION: 1. Findings consistent with diffuse colitis, most likely either an infectious colitis or pseudomembranous colitis and please correlate clinically. 2. Diverticulosis. 3. Moderate size hiatal hernia. 4. Stable sclerotic bony metastatic disease. 5. Right nephrolithiasis. Assessment and Plan - Diagnosis (1) C. difficile colitis Is this a current diagnosis for this admission?: Yes Plan: Vancomycin p.o. 250 mg every 6 hours. Day 3. Leukocytosis continues to downtrend Hopefully, diarrhea will start to improve soon with treatment of C. difficile. Encourage patient to keep track of number of BMs per day. In the meantime, hold Lasix to avoid overt dehydration and replenish electrolytes and fluid losses. IVF & empiric potassium chloride scheduled. Antiemetics, tolerating mechanical soft diet. 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 Monitor Accu-Cheks. Avoid nephrotoxic medications. Creatinine at baseline. IV hydration to prevent STEPHANIE. (3) Normal anion gap metabolic acidosis Is this a current diagnosis for this admission?: Yes Plan: Secondary to bicarbonate loss from profuse diarrhea. Continue to administer IV fluids. Monitor BMP. (4) Hypocalcemia Is this a current diagnosis for this admission?: Yes Plan: Secondary to diarrhea as well as CKD. Continue po calcium supplements-increased dose. Corrected calcium is 8.3 (5) Myasthenia gravis Is this a current diagnosis for this admission?: Yes Plan: In light of recent infection, I held azathioprine but will continue patient's low-dose prednisone. - Time Time Spent with patient: 15-24 minutes
[2019-09-06] MEDS ORDERED: CALCIUM CARBONATE 500 MG TABLET PO ONE ×2 (11:30→15:15)
[2019-09-06] MEDS: METOPROLOL SUCCINATE 25 MG TAB.SR.24H PO SCH (15:01)
[2019-09-06] MEDS: RIVAROXABAN 15 MG TABLET PO SCH (17:25)
[2019-09-06] MEDS: ATORVASTATIN CALCIUM 10 MG TABLET PO SCH (21:43)
[2019-09-07] MEDS: VANCOMYCIN HCL INJ 500 MG VIAL PO SCH ×4 (00:49→17:46)
[2019-09-07] MEDS: NORMAL SALINE 1000 ML 1,000 ML IV PRN ×2 (05:18→16:54)
[2019-09-07 07:14] LABS: ABSOLUTE EOSINOPHILS # (AUTO) 0.2 10^3/uL (0.0-0.6); ABSOLUTE LYMPHOCYTES (AUTO) 0.8 10^3/uL (0.5-4.7); ABSOLUTE NEUT (AUTO) 5.3 10^3/uL (1.7-8.2); BASOPHILS % (AUTO) 0.6 % (0-2); EOSINOPHILS % (AUTO) 2.7 % (0-6); HEMATOCRIT 23.8 % (37.9-51.0); HEMOGLOBIN 8.2 g/dL (13.5-17.0); LYMPHOCYTES % (AUTO) 10.8 % (13-45); MEAN CORPUSCULAR HEMOGLOBIN 35.1 pg (27.0-33.4); MEAN CORPUSCULAR HGB CONC 34.4 g/dL (32.0-36.0); MEAN CORPUSCULAR VOLUME 102 fl (80-97); MONOCYTES % (AUTO) 13.8 % (3-13); PLATELET COUNT 169 10^3/uL (150-450); RED BLOOD COUNT 2.33 10^6/uL (4.35-5.55); RED CELL DISTRIBUTION WIDTH 16.3 % (11.5-14.0); SEGMENTED NEUTROPHILS % (AUTO) 72.1 % (42-78); TOTAL CELLS COUNTED % (AUTO) 100 %; WHITE BLOOD COUNT 7.3 10^3/uL (4.0-10.5)
[2019-09-07 07:31] LABS: ALBUMIN 2.4 g/dL (3.5-5.0); ALKALINE PHOSPHATASE 52 U/L (38-126); ANION GAP 8 (5-19); ASPARTATE AMINO TRANSFERASE 26 U/L (17-59); BILIRUBIN,DIRECT 0.2 mg/dL (0.0-0.4); BILIRUBIN,TOTAL 0.3 mg/dL (0.2-1.3); BLOOD UREA NITROGEN 13 mg/dL (7-20); CARBON DIOXIDE 16 mmol/L (22-30); CHLORIDE 118 mmol/L (98-107); GLUCOSE 86 mg/dL (75-110); POTASSIUM 4.1 mmol/L (3.6-5.0); TOTAL PROTEIN 5.2 g/dL (6.3-8.2)
[2019-09-07 07:49] LABS: CALCIUM 7.1 mg/dL (8.4-10.2)
[2019-09-07] MEDS: INSULIN LISPRO 100 UNIT/ML 3 ML VIAL SUBCUT SCH ×4 (07:51→21:58)
[2019-09-07] MEDS: CALCIUM CARBONATE 500 MG TABLET PO SCH ×2 (10:56→17:46)
[2019-09-07] MEDS: PREDNISONE 5 MG TABLET PO SCH (10:57)
[2019-09-07] MEDS: SERTRALINE HCL 50 MG TABLET PO SCH (10:57)
[2019-09-07] MEDS: CHOLECALCIFEROL (D3) 400 UNIT TABLET PO SCH (10:58)
[2019-09-07] MEDS: POTASSIUM CHLORIDE 10 MEQ TABLET.ER PO SCH ×2 (10:58→21:57)
[2019-09-07] MEDS: METOPROLOL SUCCINATE 25 MG TAB.SR.24H PO SCH (10:58)
[2019-09-07] MEDS: MUPIROCIN 2% OINTMENT 22 GM TP SCH ×2 (11:01→21:58)
--- NOTE | 2019-09-07 14:09 | PDOC PROGRESS REPORT ---
Subjective Progress Note for:: 09/07/19 Subjective:: Patient states that his bowel movements have been less voluminous. Today it was more mushy than full liquid. Denies abdominal pain. Able to tolerate diet. Reason For Visit: C DIFF COLITIS Physical Exam Vital Signs: Temp Pulse Resp BP Pulse Ox 97.2 F 61 20 144/61 H 95 09/07/19 11:06 09/07/19 11:06 09/07/19 11:06 09/07/19 11:06 09/07/19 11:06 Intake & Output 09/06/19 09/07/19 09/08/19 06:59 06:59 06:59 Intake Total 1854 3320 240 Output Total 200 1400 350 Balance 1654 1920 -110 Weight 85.7 kg 85.2 kg General appearance: PRESENT: no acute distress, cooperative Neck exam: ABSENT: JVD Respiratory exam: PRESENT: clear to auscultation elizabeth, unlabored. ABSENT: tachypnea, wheezes Cardiovascular exam: PRESENT: RRR, +S1, +S2. ABSENT: tachycardia GI/Abdominal exam: PRESENT: hyperactive bowel sounds, soft, tenderness - Very mild. ABSENT: distended, firm, guarding, rebound, rigid Neurological exam: PRESENT: alert, awake, oriented to person, oriented to place, oriented to time Results Laboratory Results: 09/07/19 06:55 09/07/19 06:55 09/07/19 09/07/19 06:55 06:55 WBC 7.3 RBC 2.33 L Hgb 8.2 L Hct 23.8 L MCV 102 H MCH 35.1 H MCHC 34.4 RDW 16.3 H Plt Count 169 Seg Neutrophils % 72.1 Sodium 141.7 Potassium 4.1 Chloride 118 H Carbon Dioxide 16 L Anion Gap 8 BUN 13 Creatinine 1.35 H Est GFR ( Amer) > 60 Glucose 86 Calcium 7.1 L Magnesium 1.7 Total Bilirubin 0.3 AST 26 Alkaline Phosphatase 52 Total Protein 5.2 L Albumin 2.4 L 09/03/19 16:53 Stool - Stool - Final 09/03/19 16:53 Stool - Stool Stool Culture - Final NO SALMONELLA, SHIGELLA, CAMPYLOBACTER, OR E.COLI 0157 RECOVERED. NEGATIVE FOR SHIGA TOXINS 1&2. Impressions: Abdomen/Pelvis CT 09/03/19 21:06 IMPRESSION: 1. Findings consistent with diffuse colitis, most likely either an infectious colitis or pseudomembranous colitis and please correlate clinically. 2. Diverticulosis. 3. Moderate size hiatal hernia. 4. Stable sclerotic bony metastatic disease. 5. Right nephrolithiasis. Assessment and Plan - Diagnosis (1) C. difficile colitis Is this a current diagnosis for this admission?: Yes Plan: Vancomycin p.o. 250 mg every 6 hours. Day 4. Leukocytosis normalized now. Diarrhea improving but still very frequent. Encouraged patient to keep track of number of BMs per day. In the meantime, hold Lasix to avoid overt dehydration and replenish electrolytes and fluid losses. IVF decreased to 70 cc/h & empiric potassium chloride scheduled. Antiemetics, advance diet from mechanical soft to low residue and regular consistency. 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 Monitor Accu-Cheks. Avoid nephrotoxic medications. Creatinine at baseline. IV hydration to prevent STEPHANIE. (3) Normal anion gap metabolic acidosis Is this a current diagnosis for this admission?: Yes Plan: Secondary to bicarbonate loss from profuse diarrhea. Continue with gentle IV fluids. Monitor BMP. (4) Hypocalcemia Is this a current diagnosis for this admission?: Yes Plan: Secondary to diarrhea as well as CKD. Continue po calcium supplements-increased dose. Corrected calcium is 8.4. (5) Myasthenia gravis Is this a current diagnosis for this admission?: Yes Plan: In light of recent infection, I held azathioprine but will continue patient's low-dose prednisone. - Time Time Spent with patient: Less than 15 minutes
[2019-09-07] MEDS: RIVAROXABAN 15 MG TABLET PO SCH (16:43)
[2019-09-07] MEDS: ATORVASTATIN CALCIUM 10 MG TABLET PO SCH (21:57)
[2019-09-08] MEDS: VANCOMYCIN HCL INJ 500 MG VIAL PO SCH ×5 (00:07→23:20)
[2019-09-08 05:32] LABS: ABSOLUTE EOSINOPHILS # (AUTO) 0.2 10^3/uL (0.0-0.6); ABSOLUTE LYMPHOCYTES (AUTO) 0.7 10^3/uL (0.5-4.7); ABSOLUTE NEUT (AUTO) 4.5 10^3/uL (1.7-8.2); BASOPHILS % (AUTO) 0.6 % (0-2); EOSINOPHILS % (AUTO) 3.1 % (0-6); HEMATOCRIT 24.5 % (37.9-51.0); HEMOGLOBIN 8.3 g/dL (13.5-17.0); LYMPHOCYTES % (AUTO) 11.5 % (13-45); MEAN CORPUSCULAR HEMOGLOBIN 34.5 pg (27.0-33.4); MEAN CORPUSCULAR HGB CONC 33.7 g/dL (32.0-36.0); MEAN CORPUSCULAR VOLUME 102 fl (80-97); PLATELET COUNT 179 10^3/uL (150-450); RED CELL DISTRIBUTION WIDTH 16.4 % (11.5-14.0); SEGMENTED NEUTROPHILS % (AUTO) 69.8 % (42-78); TOTAL CELLS COUNTED % (AUTO) 100 %; WHITE BLOOD COUNT 6.4 10^3/uL (4.0-10.5)
[2019-09-08 06:13] LABS: ALBUMIN 2.6 g/dL (3.5-5.0); ALKALINE PHOSPHATASE 54 U/L (38-126); ANION GAP 9 (5-19); ASPARTATE AMINO TRANSFERASE 33 U/L (17-59); BILIRUBIN,DIRECT 0.2 mg/dL (0.0-0.4); BILIRUBIN,TOTAL 0.3 mg/dL (0.2-1.3); BLOOD UREA NITROGEN 15 mg/dL (7-20); CALCIUM 7.6 mg/dL (8.4-10.2); CARBON DIOXIDE 15 mmol/L (22-30); CHLORIDE 118 mmol/L (98-107); GLUCOSE 91 mg/dL (75-110); POTASSIUM 4.3 mmol/L (3.6-5.0); TOTAL PROTEIN 5.4 g/dL (6.3-8.2)
[2019-09-08] MEDS: NORMAL SALINE 1000 ML 1,000 ML IV PRN (06:30)
[2019-09-08] MEDS: INSULIN LISPRO 100 UNIT/ML 3 ML VIAL SUBCUT SCH ×4 (08:54→21:37)
[2019-09-08] MEDS: SERTRALINE HCL 50 MG TABLET PO SCH (09:07)
[2019-09-08] MEDS: CALCIUM CARBONATE 500 MG TABLET PO SCH ×2 (09:07→17:04)
[2019-09-08] MEDS: METOPROLOL SUCCINATE 25 MG TAB.SR.24H PO SCH (09:07)
[2019-09-08] MEDS: POTASSIUM CHLORIDE 10 MEQ TABLET.ER PO SCH ×2 (09:07→21:35)
[2019-09-08] MEDS: MUPIROCIN 2% OINTMENT 22 GM TP SCH ×2 (09:08→22:00)
[2019-09-08] MEDS: CHOLECALCIFEROL (D3) 400 UNIT TABLET PO SCH (09:08)
[2019-09-08] MEDS: PREDNISONE 5 MG TABLET PO SCH (09:08)
--- NOTE | 2019-09-08 14:35 | PDOC PROGRESS REPORT ---
Subjective Progress Note for:: 09/08/19 Subjective:: Patient's diarrhea is improving. Endorses about 12 bowel movements in the past 24 hours. States that his energy level is back up. Sitting comfortably in chair. Reason For Visit: C DIFF COLITIS Physical Exam Vital Signs: Temp Pulse Resp BP Pulse Ox 97.9 F 58 L 16 136/53 H 98 09/08/19 11:18 09/08/19 11:18 09/08/19 11:18 09/08/19 11:18 09/08/19 11:18 Intake & Output 09/07/19 09/08/19 09/09/19 06:59 06:59 06:59 Intake Total 3320 2682 598 Output Total 1400 900 200 Balance 1920 1782 398 Weight 85.2 kg 87.3 kg General appearance: PRESENT: no acute distress, cooperative Neck exam: ABSENT: JVD Respiratory exam: PRESENT: clear to auscultation elizabeth, unlabored. ABSENT: tachypnea, wheezes Cardiovascular exam: PRESENT: RRR, +S1, +S2. ABSENT: tachycardia GI/Abdominal exam: PRESENT: hyperactive bowel sounds, soft. ABSENT: rebound, rigid, tenderness Neurological exam: PRESENT: alert, awake, oriented to person, oriented to place, oriented to time Results Laboratory Results: 09/08/19 05:16 09/08/19 05:16 09/08/19 09/08/19 05:16 05:16 WBC 6.4 RBC 2.40 L Hgb 8.3 L Hct 24.5 L MCV 102 H MCH 34.5 H MCHC 33.7 RDW 16.4 H Plt Count 179 Seg Neutrophils % 69.8 Sodium 142.0 Potassium 4.3 Chloride 118 H Carbon Dioxide 15 L Anion Gap 9 BUN 15 Creatinine 1.43 H Est GFR ( Amer) 56 L Glucose 91 Calcium 7.6 L Magnesium 1.8 Total Bilirubin 0.3 AST 33 Alkaline Phosphatase 54 Total Protein 5.4 L Albumin 2.6 L Impressions: Abdomen/Pelvis CT 09/03/19 21:06 IMPRESSION: 1. Findings consistent with diffuse colitis, most likely either an infectious colitis or pseudomembranous colitis and please correlate clinically. 2. Diverticulosis. 3. Moderate size hiatal hernia. 4. Stable sclerotic bony metastatic disease. 5. Right nephrolithiasis. Assessment and Plan - Diagnosis (1) C. difficile colitis Is this a current diagnosis for this admission?: Yes Plan: Vancomycin p.o. 250 mg every 6 hours. Day 5. Leukocytosis normalized now. Diarrhea continues to improve but still putting him at risk of dehydration. Discontinue IV fluids and encourage p.o. hydration. Continue to hold Lasix and replenish electrolytes Antiemetics, advance diet from mechanical soft to low residue and regular consistency. 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 Monitor Accu-Cheks. Avoid nephrotoxic medications. Creatinine at baseline. (3) Normal anion gap metabolic acidosis Is this a current diagnosis for this admission?: Yes Plan: Secondary to bicarbonate loss from diarrhea. Should improve with gradual resolution of diarrhea. Monitor BMP. (4) Hypocalcemia Is this a current diagnosis for this admission?: Yes Plan: Secondary to diarrhea as well as CKD. Continue po calcium supplements-increased dose. Corrected calcium is normal at this time. (5) Myasthenia gravis Is this a current diagnosis for this admission?: Yes Plan: In light of recent infection, I held azathioprine but will continue patient's low-dose prednisone. - Plan Summary Summary: Patient will be ready for discharge once his frequency of diarrhea has improved significantly to reasonable enough point where he would not be at significant risk for dehydration/STEPHANIE patient when sent home on p.o. fluids. Discharge planning consult placed for home health - Time Time Spent with patient: Less than 15 minutes
[2019-09-08] MEDS: RIVAROXABAN 15 MG TABLET PO SCH (17:04)
[2019-09-08] MEDS: ATORVASTATIN CALCIUM 10 MG TABLET PO SCH (21:35)
[2019-09-09] MEDS: VANCOMYCIN HCL INJ 500 MG VIAL PO SCH ×2 (06:35→12:09)
[2019-09-09 06:57] LABS: ANION GAP 7 (5-19); BLOOD UREA NITROGEN 18 mg/dL (7-20); CALCIUM 8.1 mg/dL (8.4-10.2); CARBON DIOXIDE 19 mmol/L (22-30); CHLORIDE 115 mmol/L (98-107); GLUCOSE 81 mg/dL (75-110); POTASSIUM 4.6 mmol/L (3.6-5.0)
[2019-09-09] MEDS: INSULIN LISPRO 100 UNIT/ML 3 ML VIAL SUBCUT SCH ×2 (09:11→12:08)
[2019-09-09 11:13] VITALS: BP 147/61
--- NOTE | 2019-09-09 11:49 | PDOC DISCHARGE SUMMARY ---
Impression - Admit/DC Date/PCP Admission Date/Primary Care Provider: 09/04/19 00:20 SHAILA LOPEZ MD Discharge Date: 09/09/19 - Discharge Diagnosis (1) C. difficile colitis Is this a current diagnosis for this admission?: Yes (2) Diabetes Is this a current diagnosis for this admission?: Yes (3) Myasthenia gravis Is this a current diagnosis for this admission?: Yes (4) Normal anion gap metabolic acidosis Is this a current diagnosis for this admission?: Yes (5) Hypocalcemia Is this a current diagnosis for this admission?: Yes - Assessment Summary: Patient will be ready for discharge once his frequency of diarrhea has improved significantly to reasonable enough point where he would not be at significant risk for dehydration/STEPHANIE patient when sent home on p.o. fluids. Discharge planning consult placed for home health - Additional Information Resuscitation Status: Full Code Referrals: SHAILA LOPEZ MD [Primary Care Provider] - Follow up as needed Prescriptions: Potassium Chloride [Klor-Con 10 Meq Tablet ER] 20 meq PO DAILY #5 tablet.er Vancomycin HCl [Vancocin Inj 500 mg Vial] 250 mg PO Q6 #7 vial Home Medications: Atorvastatin Calcium [Lipitor 10 mg Tablet] 10 mg PO QHS 09/04/19 Azathioprine [Imuran 50 mg Tablet] 50 mg PO Q8 09/04/19 Ferrous Sulfate [Feosol 325 mg Tablet] 325 mg PO DAILY 09/04/19 Furosemide [Lasix 20 mg Tablet] 20 mg PO DAILY 09/04/19 Metoprolol Succinate [Toprol Xl 25 mg Tab.sr] 25 mg PO DAILY 09/04/19 Prednisone [Deltasone 5 mg Tablet] 7.5 mg PO DAILY 09/04/19 Rivaroxaban [Xarelto 15 mg Tablet] 15 mg PO DAILY 09/04/19 Sertraline HCl 50 mg PO DAILY 09/04/19 Sitagliptin Phosphate [Januvia 25 mg Tablet] 25 mg PO DAILY 09/04/19 Potassium Chloride [Klor-Con 10 Meq Tablet ER] 20 meq PO DAILY #5 tablet.er 09/09/19 Vancomycin HCl [Vancocin Inj 500 mg Vial] 250 mg PO Q6 #7 vial 09/09/19 History of Present Illiness History of Present Illness: MATTEO RAIN is a 88 year old male with a history of atrial fibrillation on Xarelto, dementia, diabetes, obstructive sleep apnea, prostate cancer with bony mets stage, stage III CKD and diverticulitis. He presents with 5 days of nausea, diarrhea and poor p.o. intake. In the emergency department he is found to have colitis by CT without abscess or perforation, leukocytosis and C. difficile positive screen. He started on Flagyl and referred to the hospitalist for admission. Admits previous episode and is recently been on antibiotics for diverticulitis. Hospital Course Hospital Course: (1) C. difficile colitis Vancomycin p.o. 250 mg every 6 hours. Leukocytosis normalized now. Diarrhea improved. Patient was started on IV fluids but later discontinued and patient tolerating p.o. hydration well. Okay to restart Lasix on discharge. (2) Diabetes Resume home meds on discharge (3) Normal anion gap metabolic acidosis Secondary to bicarbonate loss from diarrhea. (4) Hypocalcemia Secondary to diarrhea as well as CKD. Received po calcium supplements. (5) Myasthenia gravis Resume azathioprine and low-dose prednisone. Okay for discharge on oral vancomycin. Follow-up outpatient with his PCP. Discussed with the patient and he is agreement with the plan. Physical Exam Vital Signs: Temp Pulse Resp BP Pulse Ox 98 F 54 L 20 147/61 H 98 09/09/19 11:00 09/09/19 11:00 09/09/19 11:00 09/09/19 11:00 09/09/19 11:00 Intake & Output 09/08/19 09/09/19 09/10/19 06:59 06:59 06:59 Intake Total 2682 2097 Output Total 900 1475 Balance 1782 622 Weight 192 lb 7.417 oz 191 lb 9.307 oz Exam: Patient is no acute distress Alert oriented to time place person No anxiety or depression Head: atraumatic normocephalic Pupils: are equal reactive Heart: Regular rate and rhythm Lungs: clear no distress Abdomen: nontender nondistended Neurological exam: unremarkable Results Laboratory Results: WBC 6.4 10^3/uL (4.0-10.5) 09/08/19 05:16 RBC 2.40 10^6/uL (4.35-5.55) L 09/08/19 05:16 Hgb 8.3 g/dL (13.5-17.0) L 09/08/19 05:16 Hct 24.5 % (37.9-51.0) L 09/08/19 05:16 MCV 102 fl (80-97) H 09/08/19 05:16 MCH 34.5 pg (27.0-33.4) H 09/08/19 05:16 MCHC 33.7 g/dL (32.0-36.0) 09/08/19 05:16 RDW 16.4 % (11.5-14.0) H 09/08/19 05:16 Plt Count 179 10^3/uL (150-450) 09/08/19 05:16 Lymph % (Auto) 11.5 % (13-45) L 09/08/19 05:16 [place] % (Auto) 15.0 % (3-13) H 09/08/19 05:16 Eos % (Auto) 3.1 % (0-6) 09/08/19 05:16 Baso % (Auto) 0.6 % (0-2) 09/08/19 05:16 Absolute Neuts (auto) 4.5 10^3/uL (1.7-8.2) 09/08/19 05:16 Absolute Lymphs (auto) 0.7 10^3/uL (0.5-4.7) 09/08/19 05:16 Absolute Monos (auto) 1.0 10^3/uL (0.1-1.4) 09/08/19 05:16 Absolute Eos (auto) 0.2 10^3/uL (0.0-0.6) 09/08/19 05:16 Absolute Basos (auto) 0.0 10^3/uL (0.0-0.2) 09/08/19 05:16 Total Counted 100 09/05/19 05:12 Seg Neutrophils % 69.8 % (42-78) 09/08/19 05:16 Seg Neuts % (Manual) 86 % (42-78) H 09/05/19 05:12 Lymphocytes % (Manual) 5 % (13-45) L 09/05/19 05:12 Monocytes % (Manual) 9 % (3-13) 09/05/19 05:12 Eosinophils % (Manual) 0 % (0-6) 09/05/19 05:12 Basophils % (Manual) 0 % (0-2) 09/05/19 05:12 Abs Neuts (Manual) 13.4 10^3/uL (1.7-8.2) H 09/05/19 05:12 Abs Lymphs (Manual) 0.8 10^3/uL (0.5-4.7) 09/05/19 05:12 Abs Monocytes (Manual) 1.4 10^3/uL (0.1-1.4) 09/05/19 05:12 Absolute Eos (Manual) 0.0 10^3/uL (0.0-0.6) 09/05/19 05:12 Abs Basophils (Manual) 0.0 10^3/uL (0.0-0.2) 09/05/19 05:12 Platelet Estimate Cancelled 09/03/19 15:35 Platelet Comment ADEQUATE 09/05/19 05:12 Poikilocytosis SLIGHT 09/05/19 05:12 Anisocytosis 1+ 09/05/19 05:12 Macrocytosis 1+ 09/05/19 05:12 Barry Cells SLIGHT 09/05/19 05:12 Sodium 141.3 mmol/L (137-145) 09/09/19 05:59 Potassium 4.6 mmol/L (3.6-5.0) 09/09/19 05:59 Chloride 115 mmol/L (98-107) H 09/09/19 05:59 Carbon Dioxide 19 mmol/L (22-30) L 09/09/19 05:59 Anion Gap 7 (5-19) 09/09/19 05:59 BUN 18 mg/dL (7-20) 09/09/19 05:59 Creatinine 1.49 mg/dL (0.52-1.25) H 09/09/19 05:59 Est GFR ( Amer) 54 (>60) L 09/09/19 05:59 Est GFR (Non-Af Amer) Cancelled 09/03/19 15:35 Est GFR (MDRD) Non-Af 45 (>60) L 09/09/19 05:59 Glucose 81 mg/dL (75-110) 09/09/19 05:59 POC Glucose 110 mg/dL (70-110) 09/09/19 10:18 Calcium 8.1 mg/dL (8.4-10.2) L 09/09/19 05:59 Magnesium 1.8 mg/dL (1.6-2.3) 09/08/19 05:16 Total Bilirubin 0.3 mg/dL (0.2-1.3) 09/08/19 05:16 Direct Bilirubin 0.2 mg/dL (0.0-0.4) 09/08/19 05:16 Neonat Total Bilirubin Not Reportable 09/08/19 05:16 Neonat Direct Bilirubin Not Reportable 09/08/19 05:16 Neonat Indirect Bili Not Reportable 09/08/19 05:16 AST 33 U/L (17-59) 09/08/19 05:16 ALT 14 U/L (<50) 09/08/19 05:16 Alkaline Phosphatase 54 U/L (38-126) 09/08/19 05:16 Total Protein 5.4 g/dL (6.3-8.2) L 09/08/19 05:16 Albumin 2.6 g/dL (3.5-5.0) L 09/08/19 05:16 EGFR Cancelled 09/03/19 15:35 Urine Color YELLOW 09/03/19 16:53 Urine Appearance CLEAR 09/03/19 16:53 Urine pH 5.0 (5.0-9.0) 09/03/19 16:53 Ur Specific [place] 1.013 09/03/19 16:53 Urine Protein 30 mg/dL (NEGATIVE) H 09/03/19 16:53 Urine Glucose (UA) NEGATIVE mg/dL (NEGATIVE) 09/03/19 16:53 Urine Ketones NEGATIVE mg/dL (NEGATIVE) 09/03/19 16:53 Urine Blood NEGATIVE (NEGATIVE) 09/03/19 16:53 Urine Nitrite NEGATIVE (NEGATIVE) 09/03/19 16:53 Urine Bilirubin NEGATIVE (NEGATIVE) 09/03/19 16:53 Urine Urobilinogen NEGATIVE mg/dL (<2.0) 09/03/19 16:53 Ur Leukocyte Esterase NEGATIVE (NEGATIVE) 09/03/19 16:53 Urine WBC (Auto) 1 /HPF 09/03/19 16:53 Urine RBC (Auto) 0 /HPF 09/03/19 16:53 Squamous Epi Cells Auto <1 /HPF 09/03/19 16:53 Urine Mucus (Auto) RARE /LPF 09/03/19 16:53 Urine Ascorbic Acid 40 (NEGATIVE) H 09/03/19 16:53 Stl C. Difficile GDH Ag POSITIVE (NEGATIVE) 09/03/19 16:53 Stl C.difficile Tox A&B POSITIVE (NEGATIVE) 09/03/19 16:53 Slides for Path Review Cancelled 09/03/19 15:35 Impressions: Abdomen/Pelvis CT 09/03/19 21:06 IMPRESSION: 1. Findings consistent with diffuse colitis, most likely either an infectious colitis or pseudomembranous colitis and please correlate clinically. 2. Diverticulosis. 3. Moderate size hiatal hernia. 4. Stable sclerotic bony metastatic disease. 5. Right nephrolithiasis. Plan Time Spent: Greater than 30 Minutes - 35 minutes Stroke Is this a Stroke Patient?: No Acute Heart Failure - Is this a Heart Failure Patient?: No
[2019-09-09] MEDS: METOPROLOL SUCCINATE 25 MG TAB.SR.24H PO SCH (12:04)
[2019-09-09] MEDS: SERTRALINE HCL 50 MG TABLET PO SCH (12:04)
[2019-09-09] MEDS: CALCIUM CARBONATE 500 MG TABLET PO SCH (12:04)
[2019-09-09] MEDS: CHOLECALCIFEROL (D3) 400 UNIT TABLET PO SCH (12:05)
[2019-09-09] MEDS: POTASSIUM CHLORIDE 10 MEQ TABLET.ER PO SCH (12:05)
[2019-09-09] MEDS: PREDNISONE 5 MG TABLET PO SCH (12:05)
[2019-09-09] MEDS: MUPIROCIN 2% OINTMENT 22 GM TP SCH (12:06)
== END 2019-09-09 16:00 | disposition home or self-care (01) | DRG 372 ==
LOC: ER 16:12 → EH 09-04 00:20 → 4W 09-04 02:00 → 4N 09-05 18:51
PROVIDERS: ADMIT Internal Medicine; ATTEND Internal Medicine
PROC: 5A09357 Assistance with Respiratory Ventilation, Less than 24 Consecutive Hours, Continuous Positive Airway Pressure (ICD-10-PCS; principal; 2019-09-05)
DX: A04.72 Enterocolitis due to Clostridium difficile, not specified as recurrent (principal); E87.2 Acidosis; C79.51 Secondary malignant neoplasm of bone; G70.00 Myasthenia gravis without (acute) exacerbation; E83.51 Hypocalcemia; D63.1 Anemia in chronic kidney disease; F03.90 Unspecified dementia, unspecified severity, without behavioral disturbance, psychotic disturbance, mood disturbance, and anxiety; C61 Malignant neoplasm of prostate; N18.3 Chronic kidney disease, stage 3 (moderate); E11.22 Type 2 diabetes mellitus with diabetic chronic kidney disease; I48.91 Unspecified atrial fibrillation; G47.33 Obstructive sleep apnea (adult) (pediatric); I12.9 Hypertensive chronic kidney disease with stage 1 through stage 4 chronic kidney disease, or unspecified chronic kidney disease; J44.9 Chronic obstructive pulmonary disease, unspecified; M10.9 Gout, unspecified; F32.9 Major depressive disorder, single episode, unspecified; E78.5 Hyperlipidemia, unspecified; K21.9 Gastro-esophageal reflux disease without esophagitis; M19.90 Unspecified osteoarthritis, unspecified site; E86.0 Dehydration; Z96.653 Presence of artificial knee joint, bilateral; Z79.84 Long term (current) use of oral hypoglycemic drugs; Z79.52 Long term (current) use of systemic steroids; Z79.01 Long term (current) use of anticoagulants; Z85.828 Personal history of other malignant neoplasm of skin; Z86.14 Personal history of Methicillin resistant Staphylococcus aureus infection; Z95.2 Presence of prosthetic heart valve; Z87.891 Personal history of nicotine dependence; Z88.6 Allergy status to analgesic agent; Z88.8 Allergy status to other drugs, medicaments and biological substances
CPT/HCPCS: 36415; 74177; 80048; 80053; 81001; 82962; 83735; 85025; 87040; 87045; 87205; 87324; 87449; 94660; 96365; 99285; J0610; J1644; J1756; J1815; J3370; J3480; J3490; J7030; J7512